=== PATIENT | male | born 1940 | race Caucasian/White ===

== ENCOUNTER 2024-02-27 09:25 | Day surgery (SDC) | payer MEDICARE, SELFPAY ==
[2024-02-27 10:05] LABS: Glucose - Point of Care 125 mg/dl (70-99)
--- NOTE | 2024-02-27 10:23 | ITS.CL.CARDI ---
Water Aerobics Instructor - Cardioversion
Cardioversion
Procedure Report:
Date of Procedure:
Procedure: Cardioversion
Indication: Symptomatic atrial fibrillation
Performing Physician: Nilton Ken MD
Technique: The patient was brought to the holding area. Signed informed consent was obtained. A time out was called and performed. The patient was anesthetized by the anesthesia service. Anticoagulation status was reviewed and appropriate. R2 pads
were placed anteriorly and posteriorly. A 200 J synchronized biphasic shock restored normal sinus rhythm without significant bradycardia. There were no complications.
Conclusion: Uncomplicated cardioversion from atrial fibrillation to sinus rhythm.
Recommendation: Routine post cardioversion care. Continue [facility] anticoagulation.
== END 2024-02-27 10:52 | disposition home or self-care (01) ==
LOC: CATH 09:25
PROVIDERS: ATTENDING PHYSICIAN Internal Medicine Cardiovascular Disease; FAMILY PHYSICIAN Internal Medicine; OTHER PHYSICIAN Internal Medicine Cardiovascular Disease
DX: I48.19 Other persistent atrial fibrillation (principal); I08.3 Combined rheumatic disorders of mitral, aortic and tricuspid valves; I50.22 Chronic systolic (congestive) heart failure; I27.20 Pulmonary hypertension, unspecified; E11.9 Type 2 diabetes mellitus without complications; Z79.01 Long term (current) use of anticoagulants; Z79.84 Long term (current) use of oral hypoglycemic drugs
CPT/HCPCS: 82962; 92960; 93005

== ENCOUNTER → 2025-01-28 12:57 | Outpatient (REF) | payer MEDICARE, SELFPAY | LOC: RAD 12:57 | PROVIDERS: ATTENDING PHYSICIAN Internal Medicine Cardiovascular Disease; FAMILY PHYSICIAN Internal Medicine | DX: M79.89 Other specified soft tissue disorders (principal); R09.89 Other specified symptoms and signs involving the circulatory and respiratory systems; I87.2 Venous insufficiency (chronic) (peripheral) | CPT/HCPCS: 93970 ==

== ENCOUNTER 2025-02-03 09:46 | Day surgery (SDC) | payer MEDICARE, SELFPAY ==
--- NOTE | 2025-02-03 12:05 | ITS.CL.CARDI ---
Brand Ambassador Promotional Model - Cardioversion
Cardioversion
Procedure Report:
Date of Procedure: 02/03/25
Procedure: Cardioversion
Indication: Symptomatic atrial fibrillation
Performing Physician: Nilton Ken MD
Technique: The patient was brought to the holding area. Signed informed consent was obtained. A time out was called and performed. The patient was anesthetized by the anesthesia service. Anticoagulation status was reviewed and appropriate. R2 pads
were placed anteriorly and posteriorly. A 200 J synchronized biphasic shock restored sinus rhythm with first degree AV block and brief second degree AV block
Conclusion: Uncomplicated cardioversion from atrial fibrillation to sinus rhythm with first degree AV block.
Recommendation: Routine post cardioversion care. Continue [facility] anticoagulation.
== END 2025-02-03 12:45 | disposition home or self-care (01) ==
LOC: CATH 09:46
PROVIDERS: ATTENDING PHYSICIAN Internal Medicine Cardiovascular Disease; FAMILY PHYSICIAN Internal Medicine; OTHER PHYSICIAN Internal Medicine Cardiovascular Disease
DX: I48.91 Unspecified atrial fibrillation (principal); I44.1 Atrioventricular block, second degree; Z79.01 Long term (current) use of anticoagulants
CPT/HCPCS: 92960; 93005

== ENCOUNTER → 2025-04-12 11:05 | Outpatient (REF) | payer MEDICARE, SELFPAY ==
[2025-04-12 11:38] LABS: Hematocrit 40.5 % (39.0-52.0); Hemoglobin 13.2 g/dL (13.0-18.0); Mean Corp Hgb Conc. 32.6 g/dL (33.0-37.0); Mean Corpuscular Volume 99.0 fL (80.0-94.0); Nucleated Red Blood Cells % 0 % (-); Platelet Count 230 10^3/uL (130-400); Red Cell Dist. Width 14.0 % (11.5-14.5)
[2025-04-12 11:46] LABS: INR 1.51; PT 18.5 Sec (11.4-14.6)
[2025-04-12 12:23] LABS: ALT (SGPT) 24 U/L (0-50); AST (SGOT) 25 U/L (17-59); Albumin 3.9 g/dl (3.5-5.0); Alkaline Phosphatase 67 U/L (38-126); Blood Urea Nitrogen 40 mg/dl (9-20); Calcium 10.0 mg/dl (8.4-10.2); Carbon Dioxide 32 mmol/L (22-30); Chloride 98 mmol/L (98-107); Glucose 225 mg/dl (70-99); Magnesium 2.4 mg/dl (1.6-2.3); Potassium 5.1 mmol/L (3.5-5.1); Sodium 136 mmol/L (135-145); Total Protein 6.6 g/dl (6.3-8.2); eGFR 59.26
== END ==
LOC: SDSPAT 11:05
PROVIDERS: ATTENDING PHYSICIAN Internal Medicine Cardiovascular Disease; FAMILY PHYSICIAN Internal Medicine
DX: I48.19 Other persistent atrial fibrillation (principal)
CPT/HCPCS: 36415; 80053; 83735; 85025; 85610; 86850; 86900; 86901; 87070

== ENCOUNTER 2025-04-19 08:01 | Inpatient (IN) | payer MEDICARE, SELFPAY ==
[2025-04-12 11:45] VITALS: BMI 31.1
[2025-04-19] VITALS (18 sets, daily range): BP systolic 91–127; BP diastolic 58–76; BMI 31.1
[2025-04-19] MEDS: NSS 500 IV (09:02)
[2025-04-19 09:11] LABS: Glucose - Point of Care 129 mg/dl (70-99)
[2025-04-19 11:21] LABS: ACT-LR - POC 289 Seconds (116-155)
[2025-04-19 12:20] LABS: ACT-LR - POC 231 Seconds (116-155)
[2025-04-19 12:42] LABS: ACT-LR - POC 385 Seconds (116-155)
--- NOTE | 2025-04-19 13:02 | ITS.CL.ABL ---
Vba Developer - Ablation
Ablation
Procedure Report:
ELECTROPHYSIOLOGY ABLATION STUDY
Procedures: Pulmonary vein isolation, left atrial posterior wall isolation, and watchman implantation
PVI and left atrial posterior wall isolation was performed by Ivan Amador
Watchman device implant performed by Dr. Mccabe
Transseptal finishing powder press operator for the Watchman implant [place]
DATE:: April 19, 2025���������������������������REFERRING: Dr. Ivan Amador
INDICATION: Paroxysmal supraventricular tachycardia in the form of atrial fibrillation.��Prior pulmonary vein isolation in 2019 and prior history of tachycardia induced cardiomyopathy
HISTORY: See H and P.��As above also has rectal bleeding, elevated [id number] score
ANTIARRHYTHMIC DRUG: Prior history of amiodarone use
PRE-PROCEDURE MICHAEL: No intracardiac thrombus
PRESENTING RHYTHM: Sinus rhythm
'TIME-OUT':��called and confirmed.
SEDATION/ANESTHESIA:��provided via the anesthesia department using general anesthesia (LMA).
INTRAVENOUS/ARTERIAL ACCESS:
Right femoral venous - 8Fr
Left femoral venous - 8 Fr, 6 Fr
Left femoral arterial - 5 Fr
[id number] suture to the bilateral femoral venous access sites.
Ultrasound guidance for bilateral femoral vein access was utilized by me to obtain access with demonstration of normal anatomy
CHADS-VASC Score:
HAS-Bled Score
PROCEDURE:
1.��A decapolar CS catheter was placed within the CS for mapping and pacing.��This was also used as the reference catheter for the 3-D map.
2. The intracardiac ultrasound catheter was positioned in the RA to identify the FO for targeting of transseptal puncture, assist��in identification of the pulmonary vein ostia, monitoring pre and post ablation pulmonary vein flow velocities,
monitoring for 'bubble' formation during RF application as a sign of thermal injury,��and to monitor for pericardial effusion during mapping and ablation procedure.���Left atrial size, LV ejection fraction, and pulmonary vein flows were monitored
pre and post ablation procedure. The other valves were inspected and found to be free of significant regurgitation or stenosis.
3.��Half of the calculated heparin bolus was administered prior to the first transeptal puncture.��Transseptal puncture was performed to diagnose RA and LA pressure so that safety of LA mapping and ablation could be further assessed, and to access
the left atrium and pulmonary veins for mapping and ablation.��This entailed advancing an 16.8 Spanish sheath, RF wire with dilator into the superior vena cava and withdrawing both (monitoring intracardiac ultrasound, fluoroscopy and tip pressure)
with the tip oriented toward the atrial septum.��The fossa ovalis was engaged (indicated by sudden displacement of the sheath tip as well as tenting of the fossa seen on intracardiac ultrasound).��Left atrial access required a pass with the
Brockenbrough needle extended.��Left atrial catheter position was confirmed by pressure monitoring (RA mean pressure 8 mm Hg and LA mean presure 18 mm Hg), LA saturation (99%),��as well as fluoroscopy.��The sheath was advanced over the dilator and
positioned in the left atrium.��The remainder of the calculated heparin bolus was administered and heparin was
infused to maintain ACT at 300 -350 seconds throughout the case. The patient's neck scoliosis made right atrial access and transseptal puncture extremely difficult.
4.��RA pacing was performed via the proximal decapolar poles and LA pacing was performed via the distal decapolr poles.
5. A quadrapolar catheter was first positioned at the His position for His Bundle recording which was tagged via the 3-D Navex sytem, and then passed to the RVA for RV pacing and recording.
6. The ablation catheter was positioned through one of the transeptal sheaths and a 20 pole ring mapping catheter was positioned through the second seath into the LA and then the ostia of the LIPV, LSPV, RSPV and the RIPV.��
7.��Next, a 3-D map was created using Navex.���A 3-D reconstructed CT image was compared to the 3-D Navex map to assist in anatomic interpretation, mapping and ablation.��The CT image and the NavX image were fused.
8. There is focal reconnection at the left pulmonary vein mac along the posterior wall. In olive pose the left mac was addressed in the posterior aspect and then in flower pose the roof posterior wall and floor of the left atrium were
addressed. This led to entrance next block in all 4 pulmonary veins as well as the roof posterior wall and floor of the pulmonary veins. 32 lesions were given in total and the various poses. Once the lesions were delivered and entrance next block
was confirmed with the grid catheter we then proceeded to the watchman implantation portion of the procedure.
9. The [address] sheath was exchanged over a pigtail wire for the double curve watchman sheath. Please see separate report from Dr. Mccabe for full details of watchman implant. I performed the groin access and transseptal puncture for the
watchman implantation. Over pigtail the left atrial appendage was accessed demonstrating a 25 mm x 20 mm ostium with multiple small lobes. MICHAEL guidance was performed by Dr. Alvarez. Implantation of the device was performed by Dr. Mccabe. We
initially utilized a 27 mm device but left one of the small lobes of the appendage uncovered. We were able to have good coaxial opposition to the distal appendage with the standard sheath. We then delivered a 31 mm device as distal as possible
with some stretch in the distal appendage which had 22 to 24% compression, ostial location, past the tug test, and had a 2 mm leak. Our concern in delivering a larger device i.e. 35 mm device was over compression and lack of working depth in the
appendage. As such after group discussion we elected to leave the device with a small leak which was focal and less than 5 mm. The device was deployed. We will repeat the MICHAEL on current dose of oral anticoagulation in 3 months.
TOTAL FLOURO TIME: 22 minutes 23 mGy
TOTAL RF DURATION: 0 minutes
REVERSAL OF HEPARIN: 40 mg of protamine, slow IV administration
COMPLICATIONS:
None
Intracardiac US shows no pericardial effusion post ablation.
SUMMARY:��
Complex left atrial mapping and ablation.
Isolation of the left superior pulmonary vein at the mac, left atrial posterior wall isolation. Concomitant watchman implant with a 31 mm device with a 2 mm peridevice leak but otherwise meeting all Pass criteria. Dr. Mccabe delivered the
Watchman device and I performed a groin access and transseptal puncture for that portion of the procedure.
RECOMMENDATIONS:
1. Admit to monitored bed.
2. Resume anticoagulation
3.� Check CBC and BMP in a.m. and continue outpatient medications
4.��Out of bed in 4 hours
Copy to: Dr. Ivan Amador, Dr. Dusty Mccabe
[2025-04-19 13:12] LABS: ACT-LR - POC > 397 Seconds (116-155)
[2025-04-19 14:19] LABS: Glucose - Point of Care 135 mg/dl (70-99)
--- NOTE | 2025-04-19 14:30 | PTCARENOTE ---
Rec'd report from Delaney in the EP lab; Pt rec'd AAOX3 w/no c/o CP or SOB. Pt's VSS w/HR in the 80's & 112/66 on arrival to the floor. Pt is SR w/1st deg AV block on telemetry monitoring. Pt w/bilat groin access sites w/dressings w/figure of 8
sutures intact. No signs of bleeding or hematomas. Pt & spouse advised of activity restrictions until 30 mins after sutures are clipped & the groin sites redressed. Pt verbalized his understanding. Pt oriented to room & assisted spouse w/calling for
a meal for pt. Pt's fingerstick glucose done in EP lab, resulted at 135. Pt w/call ervin within reach & plan of care ongoing.
--- NOTE | 2025-04-19 16:42 | CM ---
Chart reviewed. Patient is independent of ADLS, lives with his in a 2 STH,, 0 MICHELE, ambulates with a SPC. Plan is for the patient to return home. CM to follow
[2025-04-19] MEDS: LASIX 20 MG IV (16:48)
[2025-04-19] MEDS: FLUSH (NSS) 2 FLUSH IV (16:48)
--- NOTE | 2025-04-19 17:50 | ITS.CL.PN ---
Soft Water Mechanic - Procedure Note
Procedure
Procedure Note:
WATCHMAN LEFT ATRIAL APPENDAGE OCCLUSION REPORT
Date of Procedure: 04/19/2025
Referring: Dr. Bobbi Salvador MD
Indication: atrial fibrillation with high bleeding risk and high stroke risk
Operators: Lowell Rocha MD, PhD (interventional cardiology); Dr. Ivan Amador MD (electrophysiology); Dr. Clyde Alvarez MD (cardiac imaging)
Anesthesia: general anesthesia provided by the anesthesia staff
PROCEDURE: left atrial appendage occlusion with a 31 mm Watchman FLX
HEMODYNAMIC DATA
LA 18 mmHg
PROCEDURE NARRATIVE:
The patient was intubated and sedated by anesthesiology and then prepped and draped in standard sterile fashion. PVI was performed by Dr. Ivan Amador. Please see separate PVI report. We then proceeded immediately with Watchman implantation through
the existing transseptal puncture. The [address] sheath was exchanged over a pigtail wire in the left atrium for a Watchman double curve sheath. A MICHAEL probe was placed by cardiology and imaging performed demonstrating no left atrial appendage
thrombus and no pericardial effusion.
A 5F pigtail catheter was advanced through the Watchman sheath and placed in the left atrial appendage, and an appendage gram was performed demonstrating anatomy suitable for a 31 mm Watchman FLX device (25x20 mm ostium). The device was prepped on
the back table, the pigtail catheter removed, and the device delivered via the sheath to the left atrial appendage by Dr. Lowell Rocha. Unfortunately, despite multiple attempts at delivery there appeared to be an unacceptably large mitral
shoulder and the decision was made to try a smaller 27 mm device. This device resulted in deeper delivery, however, this device appeared too small for the ostium as it left a small posterior side lobe uncovered. We decided to re-attempt the 31 mm
device with deeper initial deployment as well as posterior guide torque just before deployment in the hopes this would 'tuck' the mitral shoulder while still providing coverage of the side lobe. Using this approach, the device was successfully
deployed and there was noted to be only a very small 1-2 m focal communication between the side lobe and the left atrium. We discussed attempting a larger 35 mm device, but there was concern that this would be too large and leave an unacceptable
mitral shoulder or risk perforation. The aforementioned leak was again interrogated in multiple views and demonstrated to be small and certainly well below the recommended cutoff of 5 mm. MICHAEL imaging was performed to assess other PASS criteria. The
device demonstrated excellent positioning, anchor stability on tug test, appropriate sizing with 22-24% compression. Given PASS criteria were met, the device was then released.
The delivery system retracted back into the sheath and removed from the body. The sheath was retracted into the right atrium with MICHAEL demonstrating no significant R-L shunt or pericardial effusion. The ICE catheter was removed from the body. The
sheaths were removed and the venotomy closed with [id number] knot. Protamine 40 mg was given. The patient was extubated and tolerated the procedure well.
CONCLUSIONS
1. successful deployment of a 31 mm Watchman FLX device under fluoroscopic and MICHAEL guidance with 2 mm peridevice leak noted prior to deployment
RECOMMENDATIONS:
1. resume anticoagulation with Eliquis 5 mg BID
2. repeat MICHAEL in 3 months
Copy to: Ivan Amador MD (mortgage loan interviewer); Dr. Bobbi Salvador MD (PCP)
Signed: Lowell Rocha MD, PhD
[2025-04-19] MEDS: COREG 6.25 MG PO (19:41)
[2025-04-19] MEDS: ELIQUIS 5 MG PO (19:41)
[2025-04-19] MEDS: LIPITOR 40 MG PO (21:22)
[2025-04-19] MEDS: ALTACE 5 MG PO (21:22)
[2025-04-19] MEDS: NSS IV (21:53)
--- NOTE | 2025-04-19 21:54 | PTCARENOTE ---
Patient received at change of shift out of bed to the chair. Bilateral groin sites with gauze and tegaderm C/D/I, pedal pulses present with doppler. Patient denies pain at this time. Sinus rhythm/sinus tach with first degree AV block on telemetry.
Oxygen saturation 93-94% on room air. Patient voiding in the bathroom, x1 assist with cane. Plan of care discussed. Call ervin within reach. Care ongoing.
[2025-04-19 22:35] LABS: Glucose - Point of Care 228 mg/dl (70-99)
[2025-04-20 03:14] VITALS: BP 92/63
[2025-04-20 03:25] VITALS: BMI 30.9
[2025-04-20 03:32] LABS: Hematocrit 35.7 % (39.0-52.0); Hemoglobin 11.7 g/dL (13.0-18.0); Mean Corp Hgb Conc. 32.8 g/dL (33.0-37.0); Mean Corpuscular Volume 98.1 fL (80.0-94.0); Platelet Count 216 10^3/uL (130-400); Red Cell Dist. Width 13.8 % (11.5-14.5)
[2025-04-20 03:57] LABS: Blood Urea Nitrogen 50 mg/dl (9-20); Calcium 9.1 mg/dl (8.4-10.2); Carbon Dioxide 33 mmol/L (22-30); Chloride 101 mmol/L (98-107); Estimated Creatinine Clearance 32 ml/min; Glucose 151 mg/dl (70-99); Magnesium 2.4 mg/dl (1.6-2.3); Potassium 5.4 mmol/L (3.5-5.1); Sodium 137 mmol/L (135-145); eGFR 45.34
[2025-04-20 07:07] VITALS: BP 88/59; BP 92/54
[2025-04-20 07:18] VITALS: BP 92/54
[2025-04-20 07:50] LABS: Glucose - Point of Care 102 mg/dl (70-99)
--- NOTE | 2025-04-20 08:00 | PTCARENOTE ---
Assumed care of pt from prev nsg shift; Pt AAOx3 w/no c/o CP or SOB. Pt is SR at rest & ST in the 110's-120's w/activity on telemetry monitoring. Pt's bilat groin sites w/dressings intact w/no signs or symptoms of active bleeding or hematomas. Pt's
VSS w/HR in the 60's & BP 92/54 this AM. Pt w/call ervin within reach & no addtl needs at this time.
[2025-04-20] MEDS: NSS 500 IV (08:22)
[2025-04-20] MEDS: ELIQUIS 5 MG PO (08:23)
[2025-04-20] MEDS: COREG 6.25 MG PO (08:23)
[2025-04-20] MEDS: ALDACTONE 12.5 MG PO (08:23)
[2025-04-20] MEDS: FLUSH (NSS) 1 FLUSH IV (08:24)
[2025-04-20] MEDS: ALTACE 5 MG PO (08:24)
--- NOTE | 2025-04-20 08:31 | W.PN.CARDCBS ---
Addendum entered and electronically signed by Ivan Amador MD 04/20/25 09:17:
patient seen and examined
agree with SUGAR CHIPPER MACHINE OPERATOR note and assessment
agree with SUGAR CHIPPER MACHINE OPERATOR plan
exam:
bilat groin cdi
cor regular
tele sr
jvp 6
non focal neurologically
cervical stenosis noted
PCP: Bobbi Salvador MD
CDY: Ivan Amador MD
Impression:
Symptomatic paroxysmal Atrial fibrillation
prior PVI 2019
post redo PVI and Watchman device implant 31mm 04/19/25 (2-3mm leak noted)
CARLEEN
Hyperkalemia and Hypermagnesemia
CAD/CABG 2002
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
Ambulatory dysfunction with frequent falls
NIDDM
Hyperlipidemia
h/o bleeding hemorrhoids
Plan:
Cr mild bump 1.2-> 1.5, will give IV bolus 250cc, hold lasix this am
recheck BMP on Friday
OAC Eliquis
HF continue ramipril, spironolactone, carvedilol, t/c adding SGLT2i as outpt
Hold Metformin post procedure, resume on
I.S. C&DB
Activity restrictions reviewed
f/u MICHAEL in 3 mo as scheduled
f/u Dr. Amador in 2 mo
home today
Discussed the 2-3mm leak on the device with family. Should close. If not can consider extending eliquis at 2.5mg bid at time of 3 month MICHAEL and repeat at 12 months. If leak closed then can stop OAC.
Original Note:
Today's Communication / Plan
-
post PVI and Watchman implant
mild CARLEEN, IV bolus and BMP Friday
OAC Eliquis
f/u MICHAEL in 3 mo
Impression / Plan
-
PCP: Bobbi Salvador MD
CDY: Ivan Amador MD
Impression:
Symptomatic paroxysmal Atrial fibrillation
prior PVI 2019
post redo PVI and Watchman device implant 31mm 04/19/25
CARLEEN
Hyperkalemia and Hypermagnesemia
CAD/CABG 2002
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
Ambulatory dysfunction with frequent falls
NIDDM
Hyperlipidemia
h/o bleeding hemorrhoids
Plan:
post ablation and Watchman
groins stable
tele SR with occasional NSVT
Cr mild bump 1.2-> 1.5, will give IV bolus 250cc, hold lasix this am
recheck BMP on Friday
OAC Eliquis
HF continue ramipril, spironolactone, carvedilol, t/c adding SGLT2i as outpt
Hold Metformin post procedure, resume on
I.S. C&DB
Activity restrictions reviewed
f/u MICHAEL in 3 mo as scheduled
f/u Dr. Amador in 2 mo
home today
SUMMARY:��
Complex left atrial mapping and ablation.
Isolation of the left superior pulmonary vein at the mac, left atrial posterior wall isolation. Concomitant watchman implant with a 31 mm device with a 2 mm peridevice leak but otherwise meeting all Pass criteria. Dr. Mccabe delivered the
Watchman device and I performed a groin access and transseptal puncture for that portion of the procedure.
Progress Note - Consumer Marketing Specialist
Subjective
Date of Service: April 20, 2025
denies cp, sob
Objective
Labs:
04/20/25 03:20
04/20/25 03:20
Labs
Hgb 11.7 g/dL (13.0-18.0) L 04/20/25 03:20
Hct 35.7 % (39.0-52.0) L 04/20/25 03:20
Plt Count 216 10^3/uL (130-400) 04/20/25 03:20
Sodium 137 mmol/L (135-145) 04/20/25 03:20
Potassium 5.4 mmol/L (3.5-5.1) H 04/20/25 03:20
BUN 50 mg/dl (9-20) H 04/20/25 03:20
Creatinine 1.5 mg/dL (0.7-1.3) H 04/20/25 03:20
Glucose 151 mg/dl (70-99) H 04/20/25 03:20
Vital Signs and I&O:
Vital Signs
Temp Pulse Resp BP Pulse Ox
97.8 F 71 20 92/54 96
04/20/25 07:07 04/20/25 08:00 04/20/25 07:07 04/20/25 07:18 04/20/25 07:07
Vital Signs
Temp Pulse Resp BP Pulse Ox
97.8 F 71 20 92/54 96
04/20/25 07:07 04/20/25 08:00 04/20/25 07:07 04/20/25 07:18 04/20/25 07:07
Intake & Output
04/18/25 04/19/25 04/20/25 04/21/25
06:59 06:59 06:59 06:59
Intake Total 1660 / 1660
Output Total 150 / 150
Balance 1510 / 1510
Physical Exam
Physical Exam
NAD< AOX3
S1, S2, RRR
fine crackles LLL, non labored, no wheeze
SNTND bsx4
b/l groins c/d/i, no HT, soft
[2025-04-20 08:40] LABS: Glycohemoglobin (HgbA1c) 6.9 % (4.0-5.6)
[2025-04-20 11:04] VITALS: BP 85/57
[2025-04-20 11:05] VITALS: BP 88/56
--- NOTE | 2025-04-20 11:24 | W.DS.TRANS ---
DC Summary - Glass Decorator
-
Discharge Instructions:
Sleep Apnea Risk Low
Discharge Diagnosis/Procedures Atrial fibrillation post ablation and Watchman
implant
Diet Low Cholesterol,Diabetic, Carb Controlled,2 Gram
Sodium
Driving Restrictions No driving for 24 hours
Blood Work Check BMP on Friday
Others Tests 3 month Follow-up MICHAEL: 07/28/2025. You will
receive a call from the hospital the night
before with instructions
Specialty Instructions Weigh Daily
Instructions:
Stand-Alone Forms: DC Instructions- Cath/EP Lab
Changes to Home Medications: No
Discharge Medications:
DC Medications w/original date entered in [facility]
apixaban 5 mg tablet (Eliquis) 5 mg PO BID Blood clot prevention/tx 11/30/19
atorvastatin 40 mg tablet 40 mg PO HS High cholesterol 11/30/19
coenzyme Q10 100 mg capsule (Co Q-10) 200 mg PO DAILY@1400 Supplement 11/30/19
multivitamin with folic acid 400 mcg tablet (Tab-A-Veena) 1 tab PO DAILY@1400 Supplement 11/30/19
ramipril 5 mg capsule 5 mg PO BID Blood pressure 11/30/19
carvedilol 6.25 mg tablet 6.25 mg PO BID Blood pressure 08/22/20
melatonin 5 mg tablet 5 mg PO HS sleep 08/22/20
polyethylene glycol 3350 17 gram oral powder packet 17 grams PO DAILY stool softner 08/22/20
fexofenadine 180 mg tablet 180 mg PO DAILY Allergies 03/12/23
furosemide 40 mg tablet 60 mg PO DAILY Fluid Retention/Swelling 03/12/23
metformin 500 mg tablet,extended release 24 hr 500 mg PO DAILY Diabetes 03/12/23
Held on 04/20/25. Instructions: Resume on 04/21/25.
spironolactone 25 mg tablet 12.5 mg PO DAILY Fluid Retention/Swelling 03/12/23
ferrous sulfate 325 mg (65 mg iron) tablet 325 mg PO Q48H 04/19/25
Home Medication Changes
Pending Results: No
[2025-04-20 11:41] VITALS: BP 95/57
[2025-04-20] MEDS: NSS IV (11:54)
[2025-04-20 12:08] LABS: Glucose - Point of Care 112 mg/dl (70-99)
--- NOTE | 2025-04-20 13:20 | PTCARENOTE ---
Pt's IV line & telemetry removed; D/C instructions discussed w/pt & pt's spouse. Pt left via WC w/spouse driving him home.
== END 2025-04-20 13:20 | disposition home or self-care (01) | DRG 317 ==
LOC: IVU 08:01
PROVIDERS: Internal Medicine Cardiovascular Disease; Nurse Practitioner Adult Health; Student in an Organized Health Care Education/Training Program; ADMITTING PHYSICIAN Internal Medicine Cardiovascular Disease; FAMILY PHYSICIAN Internal Medicine
PROC: 02K83ZZ Map Conduction Mechanism, Percutaneous Approach (ICD-10-PCS; 2025-04-19)
PROC: 02583ZZ Destruction of Conduction Mechanism, Percutaneous Approach (ICD-10-PCS; 2025-04-19)
PROC: B24BZZ4 Ultrasonography of Heart with Aorta, Transesophageal (ICD-10-PCS; 2025-04-19)
PROC: 4A023FZ Measurement of Cardiac Rhythm, Percutaneous Approach (ICD-10-PCS; 2025-04-19)
PROC: 4A0234Z Measurement of Cardiac Electrical Activity, Percutaneous Approach (ICD-10-PCS; 2025-04-19)
PROC: 02L73DK Occlusion of Left Atrial Appendage with Intraluminal Device, Percutaneous Approach (ICD-10-PCS; 2025-04-19)
DX: I48.0 Paroxysmal atrial fibrillation (principal); Z00.6 Encounter for examination for normal comparison and control in clinical research program; I50.22 Chronic systolic (congestive) heart failure; N17.9 Acute kidney failure, unspecified; E87.5 Hyperkalemia; E83.41 Hypermagnesemia; I25.10 Atherosclerotic heart disease of native coronary artery without angina pectoris; R29.6 Repeated falls; E11.9 Type 2 diabetes mellitus without complications; E78.5 Hyperlipidemia, unspecified; I34.0 Nonrheumatic mitral (valve) insufficiency; I47.19 Other supraventricular tachycardia; I42.8 Other cardiomyopathies; M41.9 Scoliosis, unspecified; Z95.1 Presence of aortocoronary bypass graft; Z87.19 Personal history of other diseases of the digestive system; Z79.84 Long term (current) use of oral hypoglycemic drugs
CPT/HCPCS: 33340; 80048; 82962; 83036; 83735; 85027; 85347; 93005; 93355; 93656; C1730; C1732; C1733; C1759; C1766; C1769; C1892; C1894

== ENCOUNTER 2025-05-25 21:05 | Inpatient (IN) | payer MEDICARE, SELFPAY ==
[2025-05-25 15:13] VITALS: BMI 27.7
[2025-05-25 15:27] VITALS: BP 105/47
[2025-05-25 15:53] LABS: Hematocrit 35.2 % (39.0-52.0); Hemoglobin 11.4 g/dL (13.0-18.0); Mean Corp Hgb Conc. 32.4 g/dL (33.0-37.0); Mean Corpuscular Volume 100.3 fL (80.0-94.0); Nucleated Red Blood Cells % 0 % (-); Platelet Count 255 10^3/uL (130-400); Red Cell Dist. Width 14.1 % (11.5-14.5)
[2025-05-25 16:02] LABS: ALT (SGPT) 28 U/L (0-50); AST (SGOT) 24 U/L (17-59); Albumin 3.8 g/dl (3.5-5.0); Alkaline Phosphatase 67 U/L (38-126); Blood Urea Nitrogen 45 mg/dl (9-20); Calcium 9.5 mg/dl (8.4-10.2); Carbon Dioxide 25 mmol/L (22-30); Chloride 97 mmol/L (98-107); Glucose 135 mg/dl (70-99); Potassium 5.2 mmol/L (3.5-5.1); Sodium 128 mmol/L (135-145); Total Protein 6.2 g/dl (6.3-8.2); eGFR 45.34
[2025-05-25 16:14] LABS: Troponin I 0.013 ng/ml
[2025-05-25 18:04] VITALS: BP 107/60
--- NOTE | 2025-05-25 18:14 | ED.GENMED ---
History of Present Illness
General
Chief Complaint: Breathing Problem
Source: patient and family
Exam Limitations: none
Time Seen by Provider: 05/25/25 17:51
History of Present Illness
History of Present Illness:
84yoM with a history of coronary artery disease s/p CABG, CHF, atrial fibrillation with Watchman placed last month, hypertension, and type 2 diabetes presenting with his and daughter for evaluation of shortness of breath. Patient recently
started to have vision loss from his right eye about a week ago. He has been following with [facility] and was told that he had blood on the eye which resulted in glaucoma. He was started on eye drops as well as acetazolamide. His coroner transport technician
took him off of his Lasix and spironolactone due to this. He has been experiencing increasing shortness of breath, leg swelling, and weight gain over the past few days. states he is unable to walk more than 2 steps before feeling
significantly short of breath. His coroner transport technician told him to resume his Lasix but take it every other day. He took 1 dose yesterday. Family also states he seemed confused earlier today but this comes and goes and he does not seem confused at this
time. His coroner transport technician is Dr. Amador.
Past History
Past History
ED Past Medical History: Arrthythmia (afib), CHF, HTN, Hypercholesterolemia, NIDDM, Other (BPH) and Other (neuropathy)
Social History
Tobacco: Non-smoker
Alcohol: None
Drug: None
Personal:
Living: with family
Employment: Retired
Family History
Family History: Other (Noncontributory)
Phy Exam
General Physical Exam
General Presentation: no apparent distress
General Skin: warm and dry
General Habitus: elderly
General Mental: alert
ENT Exam
ENT Exam: normocephalic
Cardiovascular Exam
Cardiovascular Exam: irregularly irregular and other (2+ pitting edema in bilateral lower extremities)
Pulmonary Exam
Pulmonary Exam: no respiratory distress, no rhonchi, no wheezing and other (Bibasilar rales)
Neurological Exam
Neurological Exam: alert
[place] Coma Scale
Eye Opening: Spontaneous
Verbal Response: Oriented
Motor Response: Obeys Commands
GCS Total Score: 15
Skin Exam
Skin Exam: normal color and warm/dry
Psychiatric Exam
Psychiatric Exam: normal mood/affect
Scores
Heart Failure Risk
Heart Failure Risk Score: Not Applicable
Course
Orders/Labs/Results
Orders:
Orders
05/25/25 15:33
Electrocardiogram (*1) Urgent
Reason for Study: Shortness of Breath
EKG- Treatment ONCE
05/25/25 15:36
Complete Blood Count/With Diff Urgent
Comprehensive Metabolic Panel Urgent
NT-proBNP Urgent
Troponin I Urgent
05/25/25 17:53
CR Chest - 2 Views Urgent
Comment:
Reason For Exam: SOB
05/25/25 18:16
Furosemide [Lasix] 40 mg IV NOW STA
05/25/25 18:17
Cardiac Monitoring- Treatment ONCE
05/25/25 19:44
Admit/Transfer Patient As Directed
Co-Sign Provider:
Level of Care: Inpatient admission
Assign to:: Telemetry
Physician / Group: dayna
Diagnosis: acute chf exacerbation
Reason for Telemetry: Arrhythmia
Date to Stop Telemetry: 05/28/25
Time to Stop Telemetry: 11:00
Reason for Hospitalization: acute chf exacerbation
Expected length of stay greater than two midnights?: Yes
ELOS- Estimated Length of Stay in days: 2
I certify the patient meets the requirements for IP care: Yes
05/25/25 19:45
PRN Pain Medication Management As Directed
May give lesser potent ordered pain med per pt: Yes
preference::
Protocol:: Medication orders for pain may be administered in a
manner that supports deferring to patient preference
when the pt is:
- Requesting an ordered lesser potent pain medication.
Least to most potent pain medications are defined
as: acetaminophen < NSAID < tramadol < opioids
(morphine, oxycodone, hydromorphone).
- Requesting a lesser dose of the same medication IF
ORDERED.
- Requesting a less intrusive route of administration
if both routes are prescribed by the provider (PO <
IV).
05/25/25 19:46
Code Status As Directed
Resuscitation Status: Full Code
05/28/25 11:00
DC Protocol for Telemetry ONCE
Abnormal Lab Results
05/25/25
15:36
RBC 3.51 L 10^6/uL
(4.70-6.10)
Hgb 11.4 L g/dL
(13.0-18.0)
Hct 35.2 L %
(39.0-52.0)
MCV 100.3 H fL
(80.0-94.0)
MCH 32.5 H pg
(27.0-31.0)
MCHC 32.4 L g/dL
(33.0-37.0)
Abs Immat Gran (auto) 0.1 H 10^3/uL
(0-0.05)
Absolute Neuts (auto) 7.3 H 10^3/uL
(1.4-6.5)
Absolute Lymphs (auto) 0.6 L 10^3/uL
(1.2-3.4)
Absolute Monos (auto) 1.3 H 10^3/uL
(0.1-0.6)
Neutrophils % 78.9 H %
(42.2-75.2)
Lymphocytes % 6.8 L %
(20.5-51.1)
Monocytes % 13.5 H %
(1.7-9.3)
Sodium 128 L mmol/L
(135-145)
Potassium 5.2 H mmol/L
(3.5-5.1)
Chloride 97 L mmol/L
(98-107)
BUN 45 H mg/dl
(9-20)
Creatinine 1.5 H mg/dL
(0.7-1.3)
Glucose 135 H mg/dl
(70-99)
Total Protein 6.2 L g/dl
(6.3-8.2)
05/25/25 15:36
05/25/25 15:36
Vital Signs
Initial and Last Documented VS:
Initial Vital Signs
Temp Pulse Resp BP Pulse Ox
97.5 F 65 20 105/47 98
05/25/25 15:27 05/25/25 15:27 05/25/25 15:27 05/25/25 15:27 05/25/25 15:27
Last Documented Vital Signs
Temp Pulse Resp BP Pulse Ox
97.5 F 75 17 110/63 98
05/25/25 15:27 05/25/25 18:34 05/25/25 18:34 05/25/25 18:33 05/25/25 18:16
MDM/Problems Addressed
Differential Diagnosis Includes:
84yoM here with SOB, leg swelling, and weight gain. Lasix recently discontinued due to being started on acetazolamide for glaucoma. VSS. He is volume overloaded on exam with peripheral edema and bibasilar rales. Differential diagnosis includes but
is not limited to: CHF exacerbation, cardiorenal syndrome, CARLEEN, anasarca
Workup initiated in triage. BNP is >11,000. Creatinine 1.5 which is unchanged from lab work from 04/20. Sodium is 128 which is likely related to hypervolemia. 40 mg IV Lasix ordered. Patient will require admission for CHF exacerbation and IV
diuresis.
*Pulse Oximetry
SaO2: 98
Oxygen Mode of Delivery: Room air
Patient hypoxic: no (98%)
*EKG
Interpreted by ED Provider?: Yes
EKG Intrepretation Date: 05/25/25
Heart Rate: 69
Rate: normal
Rhythm: sinus
Starbuck: left axis deviation
Interval: normal interval
QRS Pattern: normal QRS
Ischemia: no ischemia
*Critical Care Note
Total Time (30-74mins, 75-104mins- exclusive of procedures): Not Applicable
ED Attending Note
-
Portions of this chart may have been created with voice recognition software.� Occasional wrong word or��sound alike� substitutions may have occurred due to the inherent limitations of voice recognition software.
Discharge Plan
Departure
Patient Disposition: Admit
Date of Disposition: 05/25/25
Time of Disposition: 18:18
Presentation/result/management discussed w/ accepting MD/DO: Hospitalist
Discharge Problem:
Acute exacerbation of CHF (congestive heart failure)
Prescriptions:
No Action
atorvastatin 40 MG tablet
40 mg PO HS
ramipril 5 MG capsule
5 mg PO BID
Eliquis 5 MG tablet
2.5 mg PO BID
coenzyme Q10 [Co Q-10] 100 MG capsule
200 mg PO DAILY@1200
multivitamin with folic acid [Tab-A-Veena] 1 TABLET tablet
1 tab PO DAILY@1200
melatonin 5 MG tablet
5 mg PO HS
carvedilol 6.25 MG tablet
6.25 mg PO BID
furosemide 40 mg tablet
40 mg PO Q48H
ferrous sulfate 325 mg (65 mg iron) Tablet
325 mg PO Q48H
acetazolamide 500 mg Capsule, Extended Release
500 mg PO BID
cyclopentolate 1 % Drops
1 drp RIGHT EYE BID
prednisolone acetate 1 % Drops,Suspension
1 drp RIGHT EYE QID
brimonidine 0.2 % Drops
1 drp RIGHT EYE Q8H
metformin 500 mg Tablet Extended Release 24 Hr
500 mg PO DAILY
loratadine [Claritin] 10 mg Tablet
10 mg PO DAILY@1200
dorzolamide-timolol (PF) [Cosopt (PF)] 2-0.5 % Dropperette
1 drp RIGHT EYE BID
Rocklatan 0.02-0.005 % Drops
1 drp RIGHT EYE HS
Interventions
Interventions:
*Risk Screen - Suicide Last Done: 05/25/25 15:27
*General Assessment Last Done: 05/25/25 18:43
*Neglect/Abuse Screening Last Done: 05/25/25 18:43
*ED- Fall Risk Assessment Last Done: 05/25/25 18:43
*ED COVID-19 Vaccine History Last Done: 05/25/25 18:43
ED- Cardiac Assessment Last Done: 05/25/25 18:26
ED- Pulmonary Assessment Last Done: 05/25/25 18:26
Discharge Date and Time
Print Language: [place]
[2025-05-25] MEDS: LASIX 40 MG IV (18:32)
[2025-05-25 18:33] VITALS: BP 110/63
--- NOTE | 2025-05-25 19:49 | HPS.HSE ---
Family Physician
-
Family Physician: Bobbi Salvador MD
Chief Complaint
-
shortness of breath
History of Present Illness
84-year-old male past medical history of CAD status post CABG, CHF, atrial fibrillation with watchman placed last month, hypertension, type 2 diabetes presenting with shortness of breath over the past week. 10 days ago he had acute vision loss in
his right eye. He saw [facility] and was diagnosed with spontaneous retinal hemorrhage secondary to Eliquis and subsequent glaucoma. Eliquis dose was decreased to 2.5 mg twice daily. He was started on multiple eyedrops without recovery of vision.
[facility] is considering potential surgery for his right eye in the near future. [facility] started him on acetazolamide and therefore Lasix and spironolactone were discontinued by his television production clerk Dr. Amador. He has gained 5 pounds with increased
lower extremity edema.
He has been intermittently confused. No confusion currently. No cough or fever.
He denies smoking or alcohol use.
Medical History
Past Medical History
Past Medical History: Reports Other (CAD status post CABG, CHF, atrial fibrillation with watchman placed last month, hypertension, type 2 diabetes)
Past Surgical History: Reports None
Social History
Tobacco: Non-smoker
Alcohol: None
Drug: None
Family History
Family History: Not pertinent
Allergies / Home Medications
Allergies reflects when Allergies were last updated in [facility].
Home Medications with original date entered in [facility]
Allergy/Medication List:
Allergies
Allergy/AdvReac Type Severity Reaction Status Date / Time
No Known Allergies Allergy Verified 04/19/25 08:24
Home Medications
apixaban 5 mg tablet (Eliquis) 2.5 mg PO BID Blood clot prevention/tx 11/30/19
atorvastatin 40 mg tablet 40 mg PO HS High cholesterol 11/30/19
coenzyme Q10 100 mg capsule (Co Q-10) 200 mg PO DAILY@1200 Supplement 11/30/19
multivitamin with folic acid 400 mcg tablet (Tab-A-Veena) 1 tab PO DAILY@1200 Supplement 11/30/19
ramipril 5 mg capsule 5 mg PO BID Blood pressure 11/30/19
carvedilol 6.25 mg tablet 6.25 mg PO BID Blood pressure 08/22/20
melatonin 5 mg tablet 5 mg PO HS sleep 08/22/20
furosemide 40 mg tablet 40 mg PO Q48H Fluid Retention/Swelling 03/12/23
ferrous sulfate 325 mg (65 mg iron) tablet 325 mg PO Q48H 04/19/25
acetazolamide 500 mg capsule,extended release 500 mg PO BID 05/25/25
brimonidine 0.2 % eye drops 1 drp RIGHT EYE Q8H 05/25/25
cyclopentolate 1 % eye drops 1 drp RIGHT EYE BID 05/25/25
dorzolamide-timolol (PF) 2 %-0.5 % eye drops in a dropperette (Cosopt (PF)) 1 drp RIGHT EYE BID 05/25/25
loratadine 10 mg tablet (Claritin) 10 mg PO DAILY@1200 05/25/25
metformin 500 mg tablet,extended release 24 hr 500 mg PO DAILY 05/25/25
netarsudil 0.02 %-latanoprost 0.005 % eye drops (Rocklatan) 1 drp RIGHT EYE HS 05/25/25
prednisolone acetate 1 % eye drops,suspension 1 drp RIGHT EYE QID 05/25/25
Review of Systems
-
Constitutional: Reports No Symptoms
EENT: Reports No Symptoms
Respiratory: Reports No Symptoms
Cardiac: Reports No Symptoms
Abdomen/GI: Reports No Symptoms
: Reports No Symptoms
Musculoskeletal: Reports No Symptoms
Skin: Reports No Symptoms
Neurological: Reports No Symptoms
Endocrine: Reports No Symptoms
Hematologic/Lymphatic: Reports No Symptoms
Psych: Reports No Symptoms
Physical Exam
Vital Signs
Vital Signs
Temp Pulse Resp BP Pulse Ox
97.5 F 75 17 110/63 98
05/25/25 15:27 05/25/25 18:34 05/25/25 18:34 05/25/25 18:33 05/25/25 18:16
Physical Exam
General: Well Developed, Well Nourished and No Apparent Distress
HEENT: NormoCephalic, Moist mucous membranes and Atraumatic
Respiratory: Clear
Cardiac: S1/S2, Regular Rhythm and Peripheral Edema; No Murmur or Rub
GI: Soft, Non Tender, Non Distended and Normal Bowel Sounds; No Organomegaly
Rectal: Deferred by Provider
Musculoskeletal: No Clubbing, No Cyanosis and No Edema
Skin: No Rash
Neuro: Nonfocal/grossly intact
Laboratory Results
-
05/25/25 15:36
05/25/25 15:36
Laboratory Results
Total Bilirubin 1.0 mg/dl (0.2-1.3) 05/25/25 15:36
AST 24 U/L (17-59) 05/25/25 15:36
ALT 28 U/L (0-50) 05/25/25 15:36
Alkaline Phosphatase 67 U/L (38-126) 05/25/25 15:36
Troponin I 0.013 ng/ml 05/25/25 15:36
Data Reviewed
-
Lab Data: Labs Reviewed by me
Impression/Plan
-
IMPRESSION:
PLAN:
# Acute HFrEF exacerbation
- EF of 35 to 40%
-BNP 11,000
- Check I's and O's, daily weight
- 40 IV Lasix daily
- Check echo
-Continue ramipril
- Cardiology consulted
# Hyponatremia secondary to CHF
- Sodium 128
- Monitor with diuresis
# CARLEEN versus CKD
# Hyperkalemia secondary to lisinopril
-Creatinine 1.5
- Hold lisinopril
- Monitor with diuresis
CAD status post CABG
- Continue atorvastatin
Paroxysmal atrial fibrillation with Watchman
- Continue Coreg
- Continue Eliquis, patient now on reduced dose due to hemorrhage of right eye
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
- Continue acetazolamide, brimonidine
Type 2 diabetes
- Hold metformin
- Insulin sliding scale
Hyperlipidemia
- Continue statin
History of bleeding hemorrhoid
Full code
DVT prophylaxis�Eliquis
Cardiac diet
[2025-05-25 20:28] VITALS: BP 125/69
[2025-05-25 21:00] VITALS: BP 107/70; BP 120/69; BMI 27.9
[2025-05-25] MEDS: LIPITOR 40 MG PO (21:43)
[2025-05-25 21:47] LABS: Glucose - Point of Care 152 mg/dl (70-99)
[2025-05-25 21:54] VITALS: BMI 27.9
[2025-05-25] MEDS: MELATONIN 5 MG PO (22:45)
[2025-05-25] MEDS: COREG 6.25 MG PO (22:45)
[2025-05-25] MEDS: ELIQUIS 2.5 MG PO (22:46)
[2025-05-25] MEDS: FEOSOL 325 MG PO (22:46)
[2025-05-25] MEDS: DIAMOX SR SEQUELS 500 MG PO (22:47)
[2025-05-25] MEDS: CYCLOGYL 1% EYE DROPS 1 DROP RIGHT EYE (22:49)
[2025-05-25] MEDS: XALATAN OPHTHALMIC SOLUTION 1 DROP RIGHT EYE (22:50)
[2025-05-25] MEDS: PRED FORTE 1% EYE DROPS 1 DROP RIGHT EYE (22:51)
[2025-05-25 23:00] VITALS: BP 100/53
[2025-05-25] MEDS: ALPHAGAN 0.2% EYE DROPS 1 DROP RIGHT EYE (23:14)
[2025-05-26] VITALS (12 sets, daily range): BP systolic 88–125; BP diastolic 50–76; BMI 27.5
--- NOTE | 2025-05-26 00:10 | PTCARENOTE ---
Pt arrived via stretcher and walked to the bedside 2 assist. Pt oriented to unit, bed in lowest position, side rails up, call ervin within reach. Will continue plan of care.
--- NOTE | 2025-05-26 04:45 | W.PN.UPDATE ---
Update Note
Progress Note Update
ramipril placed on hold due to hypotension and CARLEEN k 5.2. Admitting Dr. hardy.
--- NOTE | 2025-05-26 05:15 | PTCARENOTE ---
Around 04:15, Pt's BP was 89/53. Manual BP taken and was 90/50. RECORD CHANGER TESTER Hepangelique Ambriz made aware. Rechecked 30 minutes later, was 88/62. RECORD CHANGER TESTER updated. Parameters added to Coreg for AM. AM Labs drawn. No further orders at this time. Plan of care ongoing.
[2025-05-26 05:36] LABS: Hematocrit 34.2 % (39.0-52.0); Hemoglobin 11.3 g/dL (13.0-18.0); Mean Corp Hgb Conc. 33.0 g/dL (33.0-37.0); Mean Corpuscular Volume 97.2 fL (80.0-94.0); Nucleated Red Blood Cells % 0 % (-); Platelet Count 248 10^3/uL (130-400); Red Cell Dist. Width 14.2 % (11.5-14.5)
[2025-05-26 05:56] LABS: ALT (SGPT) 27 U/L (0-50); AST (SGOT) 21 U/L (17-59); Albumin 3.7 g/dl (3.5-5.0); Alkaline Phosphatase 75 U/L (38-126); Blood Urea Nitrogen 45 mg/dl (9-20); Calcium 9.4 mg/dl (8.4-10.2); Carbon Dioxide 24 mmol/L (22-30); Chloride 100 mmol/L (98-107); Estimated Creatinine Clearance 39 ml/min; Glucose 124 mg/dl (70-99); Potassium 4.3 mmol/L (3.5-5.1); Sodium 130 mmol/L (135-145); Total Protein 6.1 g/dl (6.3-8.2); eGFR 53.84
--- NOTE | 2025-05-26 07:32 | CON.CAR ---
Addendum entered and electronically signed by López Lopes MD 05/26/25 11:07:
84-year-old man with watchman placement March 2025 admitted now with acute on chronic heart failure with mildly reduced EF and right retinal hemorrhage April 2025 with glaucoma, change in mental status
PMH/PSH: CAD, CABG 2002, pulmonary vein isolation for atrial fibrillation 2019, hemorrhoidal bleeding, watchman March 2025, heart failure with mildly reduced EF 40-45%, diabetes
Current meds: Furosemide 40 mg a day, Diamox 500 twice daily, apixaban 2.5 mg twice daily, atorvastatin 40 mg a day, Alphagan eyedrops, carvedilol 6.25 twice daily, Cyclogyl, Trusopt, Claritin, melatonin, prednisolone, insulin, ramipril 5 twice
daily, iron, patient had been on spironolactone
101/65, pulse 72, respiratory rate 14, afebrile, weight 79.5 kg, was 76.6 kg April 20 and 80.6 kg at admission, at bedside, low vision, no distress but slightly tachypneic, diminished breath sounds at bases, soft systolic murmur at base and
apex, trace to 1+ edema abdomen benign JVD difficult to assess
Chest x-ray cardiomegaly, poor inspiration, blunted bases, possible left lower lobe infiltrate
Sinus rhythm with PACs and first-degree AV block, left axis deviation, inferior VT, possible anterolateral VT
Hemoglobin 11.3, platelets 248, BUN and creatinine 45 and 1.3, potassium 4.3, sodium 130, proBNP 11,400, troponin 0.013
Echo September 2023: EF 35-40%, mild to moderate MR, mild aortic stenosis, mean gradient 9, pulmonary artery systolic pressure 45-50
MICHAEL 04/19/2025: Normal LV size and function, septal contraction abnormality, normal RV, dilated left atrium, normal right atrium, no left atrial appendage clot, mild to moderate MR, mild aortic regurgitation, restricted aortic leaflets
Impression:
Acute on chronic heart failure, ejection fraction mildly reduced versus preserved EF
History of CABG
Low vision bilaterally with recent right retinal hemorrhage and glaucoma
PVI 2019 and 2024
31 mm Watchman March 2025
CARLEEN now with mild hyperkalemia
CAD CABG 2002
Diabetes
Additional diagnoses as below. Reviewed in detail and agree, unless otherwise specified.
Plan:
He presents with acute heart failure, previously with mildly reduced EF, by transesophageal echo EF was normal in March.
He had been on spironolactone, now discontinued. He had been on an SGLT2 antagonist, currently on hold.
He is relatively hypotensive, with CARLEEN and borderline hyperkalemia. Ramipril is now on hold would probably restart at lower dose 5 mg a day.
I have also decreased his carvedilol given relative bradycardia and first-degree AV block.
He is on low-dose Eliquis given recent retinal hemorrhage
Eventual restart of SGLT2 antagonist if possible.
We will check an echo.
Original Note:
Consultation
Consultation Request
Date/Time Consultation Requested: 05/25/2025 2236
Date/Time Consultation Performed: 05/26/2025 0730
Requesting Provider: Dr Cano
Performing Provider: BRENDAN Armendariz for Dr Lopes
Reason for Consultation: SOB, confusion
Medical History
-
Chief Complaint: SOB, confusion
History of Present Illness:
HPI: Sathish is an 84 year old male with PMH of paroxysmal afib s/p PVI 2019 and most recently redo PVI with Watchman 04/19/2025, CAD s/p CABG, chronic HFmrEF, CM, DM, HTN, HLD falls, hemorrhoidal bleeding, iron deficiency anemia who presented to [facility]
with shortness of breath, increased LE edema, and intermittant confusion. Ten days ago he had acute vision loss in his right eye and was seen at [facility] where he was diagnosed with spontaneous retinal hemorrhage secondary to Eliquis. Being
worked up for glaucoma. Eliquis was held for one week (pt kept on ASA 81 mg daily) and Eliquis resumed after one week hold at reduced dose of 2.5 mg twice a day. In addition, he was started on acetazolamide and Lasix and spironolactone were
discontinued. He gained 5 pounds with increased lower extremity edema. He called the cardiology office earlier this week and Lasix was resumed at 40 mg 3 x week with no improvement in symptoms and he therefore presented to [facility] ED on 05/25/2025.
Also reports intermittent confusion. Denies unilateral weakness, numbness/tingling, slurred speech, dysphagia, facial droop.
ED workup:
proBNP 83194
trop 0.013
CXR no pulm edema
EKG: NSR 1 AVB, inf VT, ant/lat VT
PMH:
Paroxysmal Afib
s/p PVI 08/23/2020
s/p PVI and Watchman 04/19/2025
Chronic Eliquis anticoagulation
Hemorrhoidal bleeding
falls
glaucoma
R eye hemorrhage
CAD s/p CABG 2002
Chronic HFmrEF
Nonischemic CM (EF 40-45%)
DM2
HTN
HLD
Recent parainfluenza virus
Suspected osteomyelitis R 2nd toe (finished 6 week course of doxy 03/12)
Past Medical History
Past Medical History: Other (In HPI)
Past Surgical History: Cardiac (CABG 2002, PVI 07/2020, ) and Other (b/l cataracts)
Social History
Tobacco: Non-Smoker
Alcohol: Occasional
Drug: None
Personal:
Living: With Family
Family History
Family History: Cancer and Hypertension
Allergies / Home Medications
Allergy/AdvReac Type Severity Reaction Status Date / Time
No Known Allergies Allergy Verified 04/19/25 08:24
�Medication �Instructions �Recorded �Confirmed �Type
apixaban 5 mg tablet (Eliquis) 2.5 mg PO BID Blood clot 11/30/19 05/25/25 History
prevention/tx
atorvastatin 40 mg tablet 40 mg PO HS High cholesterol 11/30/19 05/25/25 History
coenzyme Q10 100 mg capsule (Co 200 mg PO DAILY@1200 Supplement 11/30/19 05/25/25 History
Q-10)
multivitamin with folic acid 400 1 tab PO DAILY@1200 Supplement 11/30/19 05/25/25 History
mcg tablet (Tab-A-Veena)
ramipril 5 mg capsule 5 mg PO BID Blood pressure 11/30/19 05/25/25 History
carvedilol 6.25 mg tablet 6.25 mg PO BID Blood pressure 08/22/20 05/25/25 History
melatonin 5 mg tablet 5 mg PO HS sleep 08/22/20 05/25/25 History
furosemide 40 mg tablet 40 mg PO Q48H Fluid 03/12/23 05/25/25 History
Retention/Swelling
ferrous sulfate 325 mg (65 mg 325 mg PO Q48H 04/19/25 05/25/25 History
iron) tablet
acetazolamide 500 mg 500 mg PO BID 05/25/25 05/25/25 History
capsule,extended release
brimonidine 0.2 % eye drops 1 drp RIGHT EYE Q8H 05/25/25 05/25/25 History
cyclopentolate 1 % eye drops 1 drp RIGHT EYE BID 05/25/25 05/25/25 History
dorzolamide-timolol (PF) 2 %-0.5 % 1 drp RIGHT EYE BID 05/25/25 05/25/25 History
eye drops in a dropperette (Cosopt
(PF))
loratadine 10 mg tablet (Claritin) 10 mg PO DAILY@1200 05/25/25 05/25/25 History
metformin 500 mg tablet,extended 500 mg PO DAILY 05/25/25 05/25/25 History
release 24 hr
netarsudil 0.02 %-latanoprost 1 drp RIGHT EYE HS 05/25/25 05/25/25 History
0.005 % eye drops (Rocklatan)
prednisolone acetate 1 % eye 1 drp RIGHT EYE QID 05/25/25 05/25/25 History
drops,suspension
Review of Systems
-
History Source: Patient
All other systems: Negative unless noted
Physical Exam
Vital Signs
Temp Pulse Resp BP Pulse Ox
97.6 F 62 18 101/65 97
05/26/25 04:10 05/26/25 04:10 05/26/25 04:10 05/26/25 06:07 05/26/25 04:10
GEN: No distress, awake, Ox3
HEENT: supple, anicteric, mmm
LUNGS: decreased BS
CV: Reg, S1/S2, 1/6 syst LSB, no murmur
ABD: soft, BS+, NT/ND
EXT: 1+ LE edema, LEs cold
NEURO: Gross non-focal, 5/5 UE strength, speech clear
SKIN: No rash
Lab Results
05/26/25 05:22
05/26/25 05:22
Troponin I 0.013 ng/ml 05/25/25 15:36
[id number] Pept 46201 pg/ml 05/25/25 15:36
Impression / Plan
-
PCP: Bobbi Salvador MD
CDY: Ivan Amador MD
Impression:
shortness of breath
weight gain
intermittant confusion
R eye hemorrhage requiring one week hold of Eliquis and reduction in dose to 2.5 mg bid
Symptomatic paroxysmal Atrial fibrillation
prior PVI 2019
post redo PVI and Watchman device implant 31mm 04/19/25
CARLEEN
Hyperkalemia and Hypermagnesemia
CAD/CABG 2002
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
Ambulatory dysfunction with frequent falls
NIDDM
Hyperlipidemia
h/o bleeding hemorrhoids
Previous cardiovascular studies:
MICHAEL 04/19/2025: Successful deployment of Watchman Flex Pro 31 mm device in left atrial appendage. Mild LOLLY device flow, mild to moderate MR, mild AI
Echo 10/21/2023: EF 35 to 40%, mild to moderate MR, mild , 14/9 mmHg, mild TR
Cardiac catheterization 12/07/2019: Patent ALDRICH to LAD, SVG to diagonal, and SVG to OM 2. Severe north fork two-vessel CAD, moderate to severe LV dysfunction, RA 16, PA 58/24, PCWP 22
Plan:
Presents with acute on chronic HF with mildly reduced EF. Pro BNP 11,400.
-agree with IV Lasix
-check echo
-follow renal fxn. creat 1.5 on admit, 1.3 today
-cont home HF regimen including ramipril, carvedilol. ALso on Spironolactone but hold currently due to CARLEEN and hyperkalemia yesterday 05/23. If labs stable tomorrow resume spironolactone. t/c adding SGLT2i as outpt
- I&O's and daily weight
Afib
- he is now 5 weeks s/p PVI and Watchman
developed R eye hemorrhage with loss of vision on 05/19 and Eliquis stopped x 1 week, then resumed at lower dose Eliquis 2.5 mg bid. Was on ASA 81 mg while off Eliquis.
-cont ELiquis 2.5 mg bid
-telem: NSR freq pacs, occ pvcs, v couplets
-Patient without symptoms of recurrent A-fib
-3-month post watchman MICHAEL is scheduled
-Consider head CT given intermittent confusion in setting of recent short-term hold of oral anticoagulation for eye hemorrhage
- IntraOp MICHAEL 04/19/2025 with mild lolly- device flow
Data Reviewed
-
EKG: Tracing Personally Visualized and interpreted
Labs: Labs Reviewed by me
[2025-05-26 07:59] LABS: Glucose - Point of Care 121 mg/dl (70-99)
[2025-05-26] MEDS: LASIX 40 MG IV (08:26)
[2025-05-26] MEDS: ELIQUIS 2.5 MG PO ×2 (08:30→20:13)
[2025-05-26] MEDS: DIAMOX SR SEQUELS 500 MG PO ×2 (08:30→20:13)
[2025-05-26] MEDS: ALPHAGAN 0.2% EYE DROPS 1 DROP RIGHT EYE ×3 (08:31→23:17)
[2025-05-26] MEDS: CYCLOGYL 1% EYE DROPS 1 DROP RIGHT EYE ×2 (08:31→20:15)
[2025-05-26] MEDS: PRED FORTE 1% EYE DROPS 1 DROP RIGHT EYE ×4 (08:32→21:17)
[2025-05-26] MEDS: TRUSOPT 2% OPHTHALMIC SOLUTION 1 DROP RIGHT EYE ×2 (08:32→20:16)
[2025-05-26] MEDS: NOVOLOG FLEXPEN-LOW RESISTANCE SC ×2 (08:33→12:24)
[2025-05-26] MEDS: COREG 3.125 MG PO ×2 (08:50→20:13)
[2025-05-26] MEDS: DESENEX/MITRAZOL/ZEASORB 1 APPLIC TOPICAL ×2 (08:51→20:17)
[2025-05-26] MEDS: COREG PO (09:21)
--- NOTE | 2025-05-26 11:15 | HFEDUCATE ---
84 yo male admitted with SOB over past week, increase in weight and increased LE edema. Past medical history includes CAD post CABG, HFmrEF, A-fib with watchman, hypertension and Type 2 DM. His current ejection fraction by echocardiogram is 35-40% .
He lives at home with his , Esme. Esme reports he follows a low sodium diet and a 48oz fluid restriction per day. He has a scale at home and he is weighed everyday and it is recorded in a notebook.
I provided HF education and discussed the usual lifestyle recommendations. I advised he continue to follow a low sodium diet of 5151-7690 mg. per day, and limit it to 500-750 mg. per meal. I provided Esme with a sample menu with sodium amounts
per meal. I advised a 48oz fluid restriction per day and discussed ways to achieve the recommendations. I also advised they continue to weigh daily and monitor for any slight weight gain. I explained how to monitor for exacerbations. We discussed
other alarming symptoms to watch for and when to notify his provider. We discussed need for medications.
Recommendations:
Continue all HF recommended medications as ordered on discharge.
Limit sodium intake to <500-750 mg per meal.
Limit fluid intake to <48 oz per day.
Daily weights and contact provider for any weight gain >3lbs in one day or 5lbs in one week.
Follow up with provider as recommended.
[2025-05-26 11:36] LABS: Glucose - Point of Care 150 mg/dl (70-99)
[2025-05-26] MEDS: THERAGRAN 1 TABLET PO (12:21)
[2025-05-26] MEDS: CLARITIN 10 MG PO (12:21)
[2025-05-26 13:19] LABS: Glycohemoglobin (HgbA1c) 6.6 % (4.0-5.6)
--- NOTE | 2025-05-26 13:20 | W.PN.HOSP.TC ---
Today's Communication/Plan
-
echo
lasix
monitor Scr
eventual re-initiation of ACEI
Assessment / Plan
Assessment / Plan
GEN: No distress, awake, Ox3
HEENT: supple, anicteric, mmm
LUNGS: decreased BS
CV: Reg, S1/S2, 1/6 syst LSB, no murmur
ABD: soft, BS+, NT/ND
EXT: 1+ LE edema, LEs cold
NEURO: Gross non-focal, 5/5 UE strength, speech clear
SKIN: No rash
# Acute HFrEF exacerbation
- EF of 35 to 40%
-BNP 11,000
- Check I's and O's, daily weight
- 40 IV Lasix daily
- Check echo
- Holding ramipril due to hypertension, would start a lower dose
� Eventual restart of SGLT2 antagonist
� Decrease Coreg dose given bradycardia first-degree AV block
- Cardiology consulted
# Hyponatremia secondary to CHF
- Sodium 128
- Monitor with diuresis
# CARLEEN versus CKD
# Hyperkalemia secondary to lisinopril
� Probable cardiorenal
- Hold lisinopril
- Monitor with diuresis
CAD status post CABG
- Continue atorvastatin
Paroxysmal atrial fibrillation with Watchman
- Continue Coreg
- Continue Eliquis, patient now on reduced dose due to hemorrhage of right eye
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
- Continue acetazolamide, brimonidine
Type 2 diabetes
- Hold metformin
- Insulin sliding scale
Hyperlipidemia
- Continue statin
History of bleeding hemorrhoid
Full code
DVT prophylaxis�Eliquis
Cardiac diet
Anticipated Discharge: 24 - 48 hours
Subjective/Interval History
-
Date of Service: May 26, 2025
Some improvement from diuresis
Objective Data
-
Labs:
Laboratory Results
05/26/25
05:22
WBC 9.0
Hgb 11.3 L
Hct 34.2 L
Plt Count 248
Sodium 130 L
Potassium 4.3
Chloride 100
Carbon Dioxide 24
BUN 45 H
Creatinine 1.3
Glucose 124 H
Calcium 9.4
Total Bilirubin 1.1
AST 21
ALT 27
Alkaline Phosphatase 75
Vital Signs:
Vital Signs
Temp Pulse Resp BP Pulse Ox
98 F 64 14 107/52 95
05/26/25 10:53 05/26/25 10:53 05/26/25 10:53 05/26/25 10:53 05/26/25 10:53
I&O
05/25/25 05/26/25 05/27/25
06:59 06:59 06:59
Intake Total 240 / 240
Output Total 400 / 400
Balance -160 / -160
Review of Systems
-
History Source: Patient
All other systems: Not reviewed unless documented
Physical Exam
-
General: Well Developed and No Apparent Distress
HEENT: Normocephalic, Atraumatic and Moist Mucous Membranes
Respiratory: Clear to Auscultation
Cardiac: Regular Rhythm and S1/S2; Negative Murmur, Rub or Gallop
GI: Soft, Nontender, Nondistended and Normal Bowel Sounds; Negative Organomegaly
Rectal: Deferred by Provider
Musculoskeletal: No Clubbing, No Cyanosis and No Edema
Skin: Negative Rash
Neuro: Awake, Alert, Oriented, AO x 3 and Nonfocal/Grossly Intact
Data Reviewed
-
Diagnostic Radiology: Report Reviewed by me
Labs: Labs Reviewed by me
[2025-05-26 16:26] LABS: Glucose - Point of Care 189 mg/dl (70-99)
[2025-05-26] MEDS: NOVOLOG FLEXPEN-LOW RESISTANCE 1 UNITS SC (18:20)
[2025-05-26] MEDS: MELATONIN 5 MG PO (21:16)
[2025-05-26] MEDS: LIPITOR 40 MG PO (21:16)
[2025-05-26] MEDS: XALATAN OPHTHALMIC SOLUTION 1 DROP RIGHT EYE (21:17)
[2025-05-26 21:45] LABS: Glucose - Point of Care 180 mg/dl (70-99)
[2025-05-27] VITALS (34 sets, daily range): BP systolic 68–143; BP diastolic 45–105; BMI 26.9
[2025-05-27 07:18] LABS: Hematocrit 37.2 % (39.0-52.0); Hemoglobin 12.2 g/dL (13.0-18.0); Mean Corp Hgb Conc. 32.8 g/dL (33.0-37.0); Mean Corpuscular Volume 98.2 fL (80.0-94.0); Platelet Count 267 10^3/uL (130-400); Red Cell Dist. Width 14.3 % (11.5-14.5)
[2025-05-27 07:57] LABS: ALT (SGPT) 26 U/L (0-50); AST (SGOT) 18 U/L (17-59); Albumin 4.0 g/dl (3.5-5.0); Alkaline Phosphatase 77 U/L (38-126); Blood Urea Nitrogen 45 mg/dl (9-20); Calcium 9.4 mg/dl (8.4-10.2); Carbon Dioxide 24 mmol/L (22-30); Chloride 99 mmol/L (98-107); Estimated Creatinine Clearance 42 ml/min; Glucose 136 mg/dl (70-99); Magnesium 2.4 mg/dl (1.6-2.3); Potassium 4.5 mmol/L (3.5-5.1); Sodium 133 mmol/L (135-145); Total Protein 5.9 g/dl (6.3-8.2); eGFR 59.26
[2025-05-27] MEDS: COREG 3.125 MG PO (09:20)
[2025-05-27] MEDS: ELIQUIS 2.5 MG PO (09:20)
[2025-05-27] MEDS: DIAMOX SR SEQUELS 500 MG PO (09:21)
[2025-05-27 09:22] LABS: Glucose - Point of Care 147 mg/dl (70-99)
[2025-05-27] MEDS: LASIX 40 MG IV ×2 (09:22→16:18)
[2025-05-27] MEDS: CYCLOGYL 1% EYE DROPS 1 DROP RIGHT EYE (09:38)
[2025-05-27] MEDS: ALPHAGAN 0.2% EYE DROPS 1 DROP RIGHT EYE ×2 (09:38→17:31)
[2025-05-27] MEDS: PRED FORTE 1% EYE DROPS 1 DROP RIGHT EYE ×3 (09:39→17:32)
[2025-05-27] MEDS: DESENEX/MITRAZOL/ZEASORB 1 APPLIC TOPICAL (09:39)
[2025-05-27] MEDS: TRUSOPT 2% OPHTHALMIC SOLUTION 1 DROP RIGHT EYE (09:39)
[2025-05-27] MEDS: NOVOLOG FLEXPEN-LOW RESISTANCE SC ×2 (09:52→17:22)
--- NOTE | 2025-05-27 10:19 | W.PN.CARDCBS ---
Addendum entered and electronically signed by López Lopes MD 05/27/25 13:00:
84-year-old man with Watchman placement March 2025 admitted now with acute on chronic heart failure with mildly reduced EF and right retinal hemorrhage April 2025 with glaucoma, change in mental status
PMH/PSH: CAD, CABG 2002, pulmonary vein isolation for atrial fibrillation 2019, hemorrhoidal bleeding, watchman March 2025, heart failure with mildly reduced EF 40-45%, diabetes
Current meds: Acetazolamide 500 mg twice daily, apixaban 2.5 mg twice daily, reduced because of retinal hemorrhage, atorvastatin 40 mg at bedtime, Alphagan, Claritin, Rocklatan thin, prednisolone, insulin, iron, ramipril on hold, carvedilol 3.125
twice daily, Trusopt, furosemide 40 mg IV daily
Extremely short of breath after going to bathroom, with marked orthopnea
108/58, pulse 90, respiratory 20, afebrile, weight is 77.8 kg, down 1.7 kg, systolic murmur at base, JVD elevated, severe kyphosis, diminished breath sounds in the leg, mild edema
Echo 05/26/2025: EF 40%, septal straightening, global hypokinesis with regional variability, moderate eccentric MR, equivocal mitral valve prolapse dilated atrium, severe aortic stenosis by 2D imaging, peak/mean gradient 41/25 mmHg, aortic valve area
0.9 cm 2, dimensionless index 0.2, moderately dilated and hypokinetic RV, dilated RA, moderate TR and severe pulmonary hypertension, 73 mmHg
Hemoglobin 12.2, 267, BUN/creatinine 25 and 1.2, potassium 4.5,Furosemide 40 mg IV daily, acetazolamide 500 mg twice daily, apixaban 2.5 mg daily, atorvastatin 40 mg at bedtime, Trusopt, prednisolone, iron, ramipril 5 mg daily, currently on hold,
carvedilol 3.125 mg daily
Impression:
Acute on chronic HFrEF
Severe aortic stenosis, a new finding
Leukocytosis
History of CABG
Low vision bilaterally with recent right retinal hemorrhage and glaucoma
PVI 2019 and 2024
31 mm Watchman March 2025
CARLEEN, improved off ramipril
CAD CABG 2002
Diabetes
Plan:
Unfortunately, his aortic stenosis has progressed, and may be responsible for his acute on chronic HFrEF.
He will need to be evaluated for TAVR. If he is a candidate he will be higher risk.
For now, the issue is volume overload and need for continued diuresis. Will double furosemide to 40 mg IV twice daily.
Given relative hypotension and CARLEEN, would probably not restart ramipril
Transfer to IVU may facilitate his care.
Original Note:
Today's Communication / Plan
-
Ongoing IV diuresis increase Lasix to 40 mg IV twice daily
Transfer to IVU given intensifying diuresis in setting of severe aortic stenosis
Consider Perez insertion due to urinary retention
Continue to monitor renal function and electrolytes
Continue reduced dose of Coreg, Eliquis, atorvastatin
Check TSH in a.m.
Follow and trend WBC
Impression / Plan
-
PCP: Bobbi Salvador MD
CDY: Ivan Amador MD
Impression:
Presented 05/25/2025 shortness of breath, edema, intermittent confusion
Heart failure with reduced ejection fraction, Pro BNP 11,400
intermittant confusion
CARLEEN
Hyponatremia, hyperkalemia and Hypermagnesemia
R eye hemorrhage requiring one week hold of Eliquis and reduction in dose to 2.5 mg bid
Symptomatic paroxysmal Atrial fibrillation
prior PVI 2019
post redo PVI and Watchman device implant 31mm 04/19/25
CAD/CABG 2002
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
Ambulatory dysfunction with frequent falls
NIDDM
Hyperlipidemia
h/o bleeding hemorrhoids
Previous cardiovascular studies:
Echo 05/26/2025: EF 40%. Septal straightening and global hypokinesis with regional variability. Moderately dilated and hypokinetic RV, dilated RA. Dilated left atrium with moderate MR. Severe aortic stenosis with peak/mean gradient 41/25 mmHg and
DEVEN 0.9 cm�. Moderate TR with severe pulmonary hypertension 73 mmHg
MICHAEL 04/19/2025: Successful deployment of Watchman Flex Pro 31 mm device in left atrial appendage. Mild LOLLY device flow, mild to moderate MR, mild AI
Echo 10/21/2023: EF 35 to 40%, mild to moderate MR, mild , 14/9 mmHg, mild TR
Cardiac catheterization 12/07/2019: Patent ALDRICH to LAD, SVG to diagonal, and SVG to OM 2. Severe [place] two-vessel CAD, moderate to severe LV dysfunction, RA 16, PA 58/24, PCWP 22
Plan:
Present 05/26/25 with acute on chronic HF with reduced EF. Pro BNP 11,400.
-Ongoing IV diuresis, 6 pound weight loss thus far but continues to have evidence of volume overload as patient got very winded standing at bedside
-Increase Lasix to 40 mg IV twice daily (05/27)
-Creatinine improving with diuresis, 1.5 on admission, currently 1.2 (05/27)
-Home HF regimen includes ramipril 5 mg BID, carvedilol 6.25 mg BID and Spironolactone.
Coreg reduced to 3.125 mg BID (05/26). Aldactone and Ramipril held due to CARLEEN and hyperkalemia 05/26
Given improved creatinine and hypotension resume reduced dose of ramipril at 2.5 mg daily (05/27). If renal function and electrolytes stable in a.m. and BP allows consider resuming Aldactone at 12.5 mg daily
t/c adding SGLT2i as outpt
-Echo as noted above shows EF of 40% with severe and moderate TR with severe pulmonary hypertension
-Nursing reports patient having difficulty urinating. Bladder scan performed 05/27/2025 with 483 cc of urine. Reached out to hospitalist to discuss Perez placement.
-Continue I&O's and daily weight
- Requesting transfer to IVU status with intensifying diuresis in setting of severe
Severe aortic stenosis noted on echocardiogram 05/26/2025. Will need to monitor his volume status and vitals closely with uptitration of diuresis
- Will need TAVR evaluation once patient improved from heart failure standpoint
Afib
-he is now 5 weeks s/p PVI and Watchman
-developed R eye hemorrhage with loss of vision on 05/19 and Eliquis stopped x 1 week, then resumed at lower dose Eliquis 2.5 mg bid. Was on ASA 81 mg while off Eliquis.
-cont Eliquis 2.5 mg bid until he undergoes 3 month post Watchman MICHAEL (already scheduled)
-telem: Sinus bradycardia freq pacs, occ pvcs, v couplets. Patient without symptoms of recurrent A-fib
-Consider head CT given intermittent confusion in setting of recent short-term hold of oral anticoagulation for eye hemorrhage
- IntraOp MICHAEL 04/19/2025 with mild lolly- device flow
Leukocytosis, with WBC of 26 05/27/2025. Patient afebrile. Unclear etiology. Continue to trend
Plan discussed with patient, patient's , nursing who is at bedside and hospitalist
History of Present Illness 05/26/2025:
Sathish is an 84 year old male with PMH of paroxysmal afib s/p PVI 2019 and most recently redo PVI with Watchman 04/19/2025, CAD s/p CABG, chronic HFmrEF, CM, DM, HTN, HLD falls, hemorrhoidal bleeding, iron deficiency anemia who presented to [facility] with
shortness of breath, increased LE edema, and intermittent confusion. Ten days ago he had acute vision loss in his right eye and was seen at [facility] where he was diagnosed with spontaneous retinal hemorrhage secondary to Eliquis. Being worked up
for glaucoma. Eliquis was held for one week (pt kept on ASA 81 mg daily) and Eliquis resumed after one week hold at reduced dose of 2.5 mg twice a day. In addition, he was started on acetazolamide and Lasix and spironolactone were discontinued.
He gained 5 pounds with increased lower extremity edema. He called the cardiology office earlier this week and Lasix was resumed at 40 mg 3 x week with no improvement in symptoms and he therefore presented to [facility] ED on 05/25/2025. Also reports
intermittent confusion. Denies unilateral weakness, numbness/tingling, slurred speech, dysphagia, facial droop.
Progress Note - Market Research Consultant
Subjective
Date of Service: May 27, 2025
Patient seen and examined with family and nursing at bedside. Appears to be somewhat dyspneic and had difficulty standing next to bed earlier when trying to urinate.
Objective
Labs:
05/27/25 06:53
05/27/25 06:53
Labs
Hgb 12.2 g/dL (13.0-18.0) L 05/27/25 06:53
Hct 37.2 % (39.0-52.0) L 05/27/25 06:53
Plt Count 267 10^3/uL (130-400) 05/27/25 06:53
Sodium 133 mmol/L (135-145) L 05/27/25 06:53
Potassium 4.5 mmol/L (3.5-5.1) 05/27/25 06:53
BUN 45 mg/dl (9-20) H 05/27/25 06:53
Creatinine 1.2 mg/dL (0.7-1.3) 05/27/25 06:53
Glucose 136 mg/dl (70-99) H 05/27/25 06:53
Troponins
05/25/25
15:36
Troponin I 0.013
Vital Signs and I&O:
Vital Signs
Temp Pulse Resp BP Pulse Ox
98.1 F 77 19 121/73 94
05/27/25 07:00 05/27/25 07:00 05/27/25 07:00 05/27/25 07:00 05/27/25 07:00
Vital Signs
Temp Pulse Resp BP Pulse Ox
98.1 F 77 19 121/73 94
05/27/25 07:00 05/27/25 07:00 05/27/25 07:00 05/27/25 07:00 05/27/25 07:00
Intake & Output
05/25/25 05/26/25 05/27/25 05/28/25
06:59 06:59 06:59 06:59
Intake Total 1080 / 1080
Output Total 1999
Balance -920 / -920
Physical Exam
Physical Exam
GEN: Elderly gentleman who appears to be chronically ill sitting in bed slightly dyspneic, awake, Ox3
HEENT: supple, anicteric, mmm
LUNGS: Decreased breath sounds at bases CTA, no wheezes/rales
CV: Irregularly irregular, S1/S2, 2/6 harsh radiating murmur
ABD: soft, BS+, NT/ND
EXT: +1-2 bilateral lower extremity edema, skin changes consistent with chronic venous stasis
NEURO: Gross non-focal
SKIN: No rash, warm, dry,
[2025-05-27 11:43] LABS: Glucose - Point of Care 159 mg/dl (70-99)
[2025-05-27] MEDS: NON-FORMULARY ITEM RIGHT EYE (12:07)
[2025-05-27] MEDS: NOVOLOG FLEXPEN-LOW RESISTANCE 1 UNITS SC (12:23)
[2025-05-27] MEDS: THERAGRAN 1 TABLET PO (12:24)
[2025-05-27] MEDS: CLARITIN 10 MG PO (12:24)
--- NOTE | 2025-05-27 12:58 | W.PN.HOSP.TC ---
Addendum entered and electronically signed by Nirmal Alexander MD 05/27/25 13:05:
CXR for further eval; WBC higher today - trend
Original Note:
Today's Communication/Plan
-
Increase Diuresis - monitor BPs
Low BPs may be limiting diuresis, especially in setting of severe
/TAVR work up as per cards
monitor Is&Os, weight
Tx to IVU for closer monitoring
Assessment / Plan
Assessment / Plan
GEN: No distress, awake, Ox3
HEENT: supple, anicteric, mmm
LUNGS: decreased BS
CV: Reg, S1/S2, 1/6 syst LSB, no murmur
ABD: soft, BS+, NT/ND
EXT: 1+ LE edema, LEs cold
NEURO: Gross non-focal, 5/5 UE strength, speech clear
SKIN: No rash
# Acute HFrEF exacerbation
- EF of 35 to 40%
-BNP 11,000
- Check I's and O's, daily weight
- Increase Lasix to 40 IV Lasix BID
-Tx to IVU for closer monitoring
--Check echo with new Severe
- Holding ramipril due to hypertension, would start a lower dose
� Eventual restart of SGLT2 antagonist
� Decrease Coreg dose given bradycardia first-degree AV block
- Cardiology consulted
#Severe
-contributing factor in SOB
- Diuresis
-Eventual work up for possible TAVR - defer to cards
#Leukocytosis
-no obvious infectious source
-f/u cxr as SOB
# Hyponatremia secondary to CHF
- Monitor with diuresis
# CARLEEN versus CKD
# Hyperkalemia secondary to lisinopril
� Probable cardiorenal
- Hold lisinopril
- Monitor with diuresis
CAD status post CABG
- Continue atorvastatin
Paroxysmal atrial fibrillation with Watchman
- Continue Coreg
- Continue Eliquis, patient now on reduced dose due to hemorrhage of right eye
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
- Continue acetazolamide, brimonidine
Type 2 diabetes
- Hold metformin
- Insulin sliding scale
Hyperlipidemia
- Continue statin
History of bleeding hemorrhoid
Full code
DVT prophylaxis�Eliquis
Cardiac diet
Total time spent on today's encounter was 51 minutes which included time spent in counseling the patient/family regarding diagnosis and treatment plan as listed above, goals of care, and symptom management. Case was discussed with nursing staff,
specialists, and care coordinators/case management. All labs and imaging personally reviewed by me. Remainder the time spent in detailed review of previous records, lab data, imaging, and other medical provider documentation.
Anticipated Discharge: > 48 hours
Subjective/Interval History
-
Date of Service: May 27, 2025
ECHO with Severe ; more SOB with ambulating today
Objective Data
-
Labs:
Laboratory Results
05/27/25
06:53
WBC 26.1 H
Hgb 12.2 L
Hct 37.2 L
Plt Count 267
Sodium 133 L
Potassium 4.5
Chloride 99
Carbon Dioxide 24
BUN 45 H
Creatinine 1.2
Glucose 136 H
Calcium 9.4
Total Bilirubin 1.4 H
AST 18
ALT 26
Alkaline Phosphatase 77
Vital Signs:
Vital Signs
Temp Pulse Resp BP Pulse Ox
98.0 F 90 20 108/58 95
05/27/25 10:56 05/27/25 10:56 05/27/25 10:56 05/27/25 10:56 05/27/25 10:56
I&O
08/28/25 08/29/25 08/30/25
06:59 06:59 06:59
Intake Total 1080 / 1080
Output Total 1999
Balance -920 / -920
Review of Systems
-
History Source: Patient
All other systems: Not reviewed unless documented
Physical Exam
-
General: Well Developed and No Apparent Distress
HEENT: Normocephalic, Atraumatic and Moist Mucous Membranes
Respiratory: Clear to Auscultation
Cardiac: Regular Rhythm and S1/S2; Negative Murmur, Rub or Gallop
GI: Soft, Nontender, Nondistended and Normal Bowel Sounds; Negative Organomegaly
Rectal: Deferred by Provider
Musculoskeletal: No Clubbing, No Cyanosis and No Edema
Skin: Negative Rash
Neuro: Awake, Alert, Oriented, AO x 3 and Nonfocal/Grossly Intact
Data Reviewed
-
Diagnostic Radiology: Report Reviewed by me
Labs: Labs Reviewed by me
--- NOTE | 2025-05-27 13:07 | CM ---
Patient seen at bedside
IA completed
Dx: acute CHF exac
PMH: CAD status post CABG, CHF, atrial fibrillation with watchman placed last month, hypertension, type 2 diabetes presenting with shortness of breath over the past week. 10 days ago he had acute vision loss in his right eye. He saw [facility] and
was diagnosed with spontaneous retinal hemorrhage secondary to Eliquis and subsequent glaucoma
Patient lives with his in a 2 story home, no steps to enter, 11 steps to bedroom/bathroom, powder room on 1st floor
PLOF: Independent with cane, Independent with ADL's, fills med box
DME: cane, walker
Denies VN/has had outpatient cardiac rehab in past 2019
Denies insecurities
PCP: Fabricio Hoang/Daryn
Pharmacy: [facility], [facility]
PLAN: TBD, follow hospital progression, CM to follow for dispo planning/needs
[2025-05-27 17:01] LABS: Glucose - Point of Care 114 mg/dl (70-99)
[2025-05-27 19:36] LABS: Glucose - Point of Care 110 mg/dl (70-99)
--- NOTE | 2025-05-27 19:56 | PTCARENOTE ---
Addendum entered by Estephania Choi RN 05/27/25 20:08:
NEON TUBE BENDER on unit, okay for patient transfer to IVU at this time with better pressure in Left arm. No meds given at this time. Notified receiving REGINALD Boateng in IVU of decision to move forward with patient transfer.
Original Note:
Assumed care on patient from previous RN - patient waiting on bed to IVU since this afternoon, bed just obtained after 1900pm. BP 76/46, rechecked 79/49 automatic right arm, left arm reading 112/90 automatic, dayshift RN unable to obtain manual BP
due to patient tremors. Alert, oriented, reported by dayshift that patient has been increasingly forgetful/confused throughout afternoon. Family is at bedside. BRENDAN Saunders notified, already on unit at this time. Awaiting further orders prior to
transfer off unit. Will monitor.
--- NOTE | 2025-05-27 20:07 | W.PN.UPDATE ---
Update Note
Progress Note Update
Asked to evaluate patient, hypotensive, BP 76/46 on right upper extremity. Asked to recheck on left upper extremity, BP 112/90, HR 80. IVU was holding transfer due to low BP and possible need to start on IV Levophed, then would need transfer to IMU.
With improved BP, no IV medication needed to be started at this time. Patient transferred to IVU as per orders.
[2025-05-27 21:16] LABS: Glucose - Point of Care 152 mg/dl (70-99)
[2025-05-27] MEDS: LEVOPHED 250 IV (21:19)
--- NOTE | 2025-05-27 21:52 | W.PN.UPDATE ---
Addendum entered and electronically signed by BRENDAN Oviedo 05/27/25 22:56:
Nursing reports patient titrating of levophed is beyond IMU so will transfer to ICU. May need ART line for bp accuracy. Notified Tulio CARDONA and nursing retail chain store area supervisor.
Addendum entered and electronically signed by BRENDAN Oviedo 05/27/25 22:54:
Updated Rafiq Cannon MD and all questions answered. Reviewed case with Sourav SIMMNOS who will also update Rafiq Cannon Friday morning. Blood cultures along with santana cath and ekg with troponin added.
Original Note:
Update Note
Progress Note Update
Patient transferred to IMU for titratable levophed. to keep MAP >65. Rafiq Cannon [phone], a surgeon, would like an update in the morning..he likely will be in surgery unfortunately.
--- NOTE | 2025-05-27 22:01 | PTCARENOTE ---
Addendum entered by Kilo Tse RN 05/27/25 22:07:
family at the bedside. updated by RN and Kristal Ellis.
Original Note:
received the patient from at approx 2044. patient oriented but lethargic. answered all questions appropriately. patient states 'just feeling tired.' HR SR 80s-90s with PVCs/PACs. appeared to be irregular/afib- EKG completed- SR. low blood
pressures. 70s/50s. both arms done. manual as well- 70s systolic. sp02 81 on RA- placed patient on 2L to get into the 90s. patient states feeling short of breath. crackles b/l bases. shallow breathing. accessory muscle use. updated Kristal Ellis
house OPTICAL INSTRUMENT SPECIALIST. came to the bedside. Levo started. new IV site placed. orders placed for IMU transfer.
report given to IMU RN. transport patient via bed by RN.
[2025-05-27] MEDS: COREG PO (22:02)
--- NOTE | 2025-05-27 22:45 | PTCARENOTE ---
Pt arrived from IVU to IMU on 6 of LEVO. Pt bp responding well. Short time later Pt bp started to drop not meeting map goal. LEVO now at 8 Night TOMATO PASTE MAKER made aware. Orders for ICU placed by TOMATO PASTE MAKER. Report given to PATIENT'S LIBRARIAN. Levo now at 10. bp meeting map goal.
[2025-05-27 23:42] LABS: Troponin I 0.042 ng/ml
--- NOTE | 2025-05-27 23:57 | W.PN.UPDATE ---
Update Note
Progress Note Update
Procedure Note: Arterial Line�
� Right Wrist Arrow 20 (11/30)�
Diagnosis:�Acute heart failure, severe �
IV Line Comments: Uneventful Procedure�
James's test completed pre-procedure: Yes�
A-Line Comments: Sterile technique as per standard protocol, Ultrasound guided insertion�
Functioning A-line in situ: Yes�
A-line Insertion Start Time:��0045
A-line in at:�0100�
[2025-05-28] VITALS (28 sets, daily range): BP systolic 82–125; BP diastolic 53–77; PULSE 2–75; BMI 27.2
[2025-05-28 01:04] LABS: Urine Character Clear (Clear)
[2025-05-28] MEDS: DIAMOX SR SEQUELS PO (01:05)
[2025-05-28] MEDS: ELIQUIS PO (01:05)
[2025-05-28] MEDS: MELATONIN PO (01:08)
[2025-05-28] MEDS: LIPITOR PO (01:08)
[2025-05-28] MEDS: FEOSOL PO (01:09)
[2025-05-28] MEDS: NON-FORMULARY ITEM RIGHT EYE ×2 (01:10→01:13)
[2025-05-28] MEDS: PRED FORTE 1% EYE DROPS RIGHT EYE (01:12)
[2025-05-28] MEDS: CYCLOGYL 1% EYE DROPS RIGHT EYE (01:12)
[2025-05-28 01:31] LABS: Urine Squamous Cell >30 /LPF (Few)
[2025-05-28 01:32] LABS: Urine Red Blood Cell >100 /HPF (0-2); Urine Urothelial Cell >30 /LPF (FEW)
[2025-05-28] MEDS: DESENEX/MITRAZOL/ZEASORB 1 APPLIC TOPICAL ×3 (01:38→20:00)
[2025-05-28] MEDS: LEVOPHED 250 IV ×5 (01:38→21:42)
[2025-05-28] MEDS: ROCEPHIN 1000 MG IV (01:39)
[2025-05-28] MEDS: STERILE WATER FOR INJECTION 10 ML IV (01:40)
[2025-05-28 01:41] LABS: B.E. -5.2 mmol/L; HCO3 24.4 mmol/L (21-28); O2 Saturation % 99.1 % (94-98); PCO2 67 mmHg (35-48); PO2 169 mmHg (83-108); Potassium 3.7 mMOL/L (3.5-5.1); Sodium 126 mMOL/L (136-145)
[2025-05-28] MEDS: ALPHAGAN 0.2% EYE DROPS RIGHT EYE (01:48)
[2025-05-28 01:49] LABS: Hematocrit 35.4 % (39.0-52.0); Hemoglobin 11.9 g/dL (13.0-18.0); Mean Corp Hgb Conc. 33.6 g/dL (33.0-37.0); Mean Corpuscular Volume 97.0 fL (80.0-94.0); Platelet Count 286 10^3/uL (130-400); Red Cell Dist. Width 14.7 % (11.5-14.5)
[2025-05-28 01:55] LABS: INR 1.68; PT 20.0 Sec (11.4-14.6)
[2025-05-28 02:13] LABS: ALT (SGPT) 25 U/L (0-50); AST (SGOT) 23 U/L (17-59); Albumin 3.5 g/dl (3.5-5.0); Alkaline Phosphatase 65 U/L (38-126); Blood Urea Nitrogen 46 mg/dl (9-20); Calcium 8.8 mg/dl (8.4-10.2); Carbon Dioxide 24 mmol/L (22-30); Chloride 98 mmol/L (98-107); Estimated Creatinine Clearance 32 ml/min; Glucose 189 mg/dl (70-99); Potassium 3.9 mmol/L (3.5-5.1); Sodium 129 mmol/L (135-145); Total Protein 5.8 g/dl (6.3-8.2); eGFR 41.96
[2025-05-28 02:21] LABS: Absolute Neutrophils -Man Diff 25.3 10^3/uL (1.4-6.5)
[2025-05-28 02:22] LABS: Platelets Checked Yes; Toxic Granulation 1+
[2025-05-28 02:24] LABS: Normal RBC Morphology No; Ovalocytes 1+; Tear Drop Red Blood Cells Occasional; Total Cells Counted 100
[2025-05-28 02:27] LABS: Troponin I 0.064 ng/ml
[2025-05-28 02:28] LABS: Basophilic Stippling Occasional; Polychromasia Occasional; Target Cells Occasional
[2025-05-28 02:29] LABS: Acanthocytes Occasional
--- NOTE | 2025-05-28 02:53 | PTCARENOTE ---
Late note due to patient care. Pt arrived to ICU lethargic, 10mcg of Levophed with an appropriate MAP of 65. 2/2 BC obtained. Perez placed for retention, 125ml out, UA sent to lab. Danie placed by Tulio BLACK. ABG results PH 7.17, BIPAP placed by
Respiratory therapist 09/02. Trops trending up, Tulio BLACK notified.
[2025-05-28] MEDS: NovoLIN R Flexpen 1 UNITS SC (03:27)
[2025-05-28 04:42] LABS: Glucose - Point of Care 180 mg/dl (70-99)
[2025-05-28 04:46] LABS: B.E. -4.9 mmol/L; HCO3 22.4 mmol/L (21-28); O2 Saturation % 98.6 % (94-98); PCO2 50 mmHg (35-48); PO2 112 mmHg (83-108)
[2025-05-28] MEDS: NOVOLOG FLEXPEN-MODERATE RESISTANCE 1 UNITS SC ×2 (06:09→12:17)
[2025-05-28 06:19] LABS: Glucose - Point of Care 159 mg/dl (70-99)
--- NOTE | 2025-05-28 07:08 | CON.INTV ---
Consultation
Consultation Request
Date/Time Consultation Requested: 05/28/25
Date/Time Consultation Performed: 05/28/25
Performing Provider: Ender
Reason for Consultation: Sepsis
Medical History
-
History of Present Illness:
84-year-old male with previous history of CAD status post CABG, congestive heart failure, atrial fibrillation presenting to ER for shortness of breath over the past week. He was recently diagnosed with spontaneous retinal hemorrhage following
acute vision loss in the right eye, felt to be due to Eliquis which was decreased to 2.5 mg twice daily. He was recently changed on his outpatient diuretic management and gained 5 pounds with increased lower extremity edema. Adm to on 05/25 for
Acute HF. Overnight 05/27/25, he was notably hypotensive and placed on pressors, admitted to ICU.
Past Medical History
Past Medical History: Other (see list below)
Social History
Tobacco: Non-smoker
Alcohol: None
Drug: None
Family History
Family History: Reviewed & Not Pertinent
Allergies / Home Medications
Allergies
Allergy/AdvReac Type Severity Reaction Status Date / Time
No Known Allergies Allergy Verified 04/19/25 08:24
Home Medications
�Medication �Instructions �Recorded �Confirmed �Last Taken �Type
apixaban 5 mg tablet (Eliquis) 2.5 mg PO BID Blood clot 11/30/19 05/25/25 05/25/25 History
prevention/tx
atorvastatin 40 mg tablet 40 mg PO HS High cholesterol 11/30/19 05/25/25 05/24/25 History
coenzyme Q10 100 mg capsule (Co 200 mg PO DAILY@1200 Supplement 11/30/19 05/25/25 05/24/25 History
Q-10)
multivitamin with folic acid 400 1 tab PO DAILY@1200 Supplement 11/30/19 05/25/25 05/24/25 History
mcg tablet (Tab-A-Veena)
ramipril 5 mg capsule 5 mg PO BID Blood pressure 11/30/19 05/25/2525 History
carvedilol 6.25 mg tablet 6.25 mg PO BID Blood pressure 08/22/20 05/25/25 05/25/25 History
melatonin 5 mg tablet 5 mg PO HS sleep 08/22/20 05/25/25 05/24/25 History
furosemide 40 mg tablet 40 mg PO Q48H Fluid 03/12/23 05/25/25 05/24/25 History
Retention/Swelling
ferrous sulfate 325 mg (65 mg 325 mg PO Q48H 04/19/25 05/25/25 Unknown History
iron) tablet
acetazolamide 500 mg 500 mg PO BID 05/25/25 05/25/25 05/25/25 History
capsule,extended release
brimonidine 0.2 % eye drops 1 drp RIGHT EYE Q8H 05/25/25 05/25/25 05/25/25 History
cyclopentolate 1 % eye drops 1 drp RIGHT EYE BID 05/25/25 05/25/25 05/25/25 History
dorzolamide-timolol (PF) 2 %-0.5 % 1 drp RIGHT EYE BID 05/25/25 05/25/25 05/25/25 History
eye drops in a dropperette (Cosopt
(PF))
loratadine 10 mg tablet (Claritin) 10 mg PO DAILY@1200 05/25/25 05/25/25 05/24/25 History
metformin 500 mg tablet,extended 500 mg PO DAILY 05/25/25 05/25/25 05/25/25 History
release 24 hr
netarsudil 0.02 %-latanoprost 1 drp RIGHT EYE HS 05/25/25 05/25/25 05/24/25 History
0.005 % eye drops (Rocklatan)
prednisolone acetate 1 % eye 1 drp RIGHT EYE QID 05/25/25 05/25/25 05/25/25 History
drops,suspension
Review of Systems
-
History Source: Patient
All other systems: Negative unless noted
Vitals / Labs / Diagnostic Testing
Vital Signs
Temp Pulse Resp BP Pulse Ox
97.0 F 60 30 95/62 95
05/28/25 05:46 05/28/25 04:15 05/28/25 05:46 05/28/25 04:00 05/28/25 05:46
Lab Data
05/28/25 01:33
05/28/25 06:00
Laboratory Results
05/28/25 05/28/25
01:33 04:35
PT 20.0 H
INR 1.68
pH 7.17 L* 7.26 L
pCO2 67 H 50 H
pO2 169 H 112 H
HCO3 24.4 22.4
O2 Delivery Level
Diagnostic Testing:
Physical Exam
-
HEENT: Normocephalic, Anicteric and Moist Mucous Membranes
Cardiovascular: S1/S2 and Regular Rhythm
Respiratory: Clear and Non-Labored Respirations
GI: Soft, Non Distended and Non Tender
Neurology: Awake, Alert, Oriented and No Motor Deficits
Skin: Warm, Dry and Good Color
General: Comfortable and Other (NAD)
Assessment
-
84-year-old male with previous history of CAD status post CABG, congestive heart failure, atrial fibrillation presenting to ER for shortness of breath over the past week. He was recently diagnosed with spontaneous retinal hemorrhage following
acute vision loss in the right eye, felt to be due to Eliquis which was decreased to 2.5 mg twice daily. He was recently changed on his outpatient diuretic management and gained 5 pounds with increased lower extremity edema. Adm to on 05/25 for
Acute HF. Overnight 05/27/25, he was notably hypotensive and placed on pressors, admitted to ICU.
Acute heart failure exacerbation
Acute hypercarbic respiratory failure on BiPAP
Leukocytosis
CARLEEN
Hyponatremia
Hyperglycemia
Elevated troponins
Septic shock on pressors
Urinary tract infection
Severe , severe PH on ECHO
Conditions present prior to admission
Restrictive lung disease, followed at [facility] by Dr. Veliz (Pul)
PFT 01/2025: FEV1 1.04 L 42%, FVC 1.53 L 46%, ratio 68-severe obstruction, TLC 3.03 43%, DLCO 33%-severe restriction, severe diffusion
Suspect due to combination of congestive heart failure and severe kyphosis
Insomnia
Atrial fibrillation s/p DCCV x 2/ablation
GERD
Chronic loculated left basilar pleural effusion on prior imaging
Atrial fibrillation
CHF
Diabetes
Peripheral edema
CAD s/p by-pass 2002
Cataracts bilateral
Plan
+current signs of metabolic encephalopathy
Denies pain at this time.
Pain/sedation: PRN
RASS goals: 0
Hemodynamically unstable, requiring pressors.
Requiring pressors: Levo @10, decreasing
Cardiac history reviewed--severe , HFrEF, severe PH noted
Prior ECHO reviewed
Hold home meds for hypotension
Monitor on telemetry
Oxygen needs: on low supplemental O2, not known to be on home O2
BIPAP overnight due to acute CO2 retention
Prior history of lung disease: severe RLD, noted from [facility] records, TLC 43%
He is certainly at risk for resp failure given his superimposed CHF -- I reviewed this with family
Supplemental O2 as indicated to maintain sats > 89%
CXR/CT reviewed indicating very low lung volumes
NPO, resume diet when able
Sales Clerk recommendations
Aspiration precautions, HOB > 30 degrees
Speech therapy eval can be considered if at elevated risk
GI prophylaxis if indicated
CARLEEN present, likely ATN
Void trials
Follow urine output, critical I/Os
Replete electrolytes as needed
Fever and increased WBC on presentation, suspect underlying UTI
Started on empiric antibiotics
Cultures sent/pending
Follow fever trend, WBC count
CBC stable, no signs of bleeding or coagulopathy.
DVT prophylaxis as assessed based on risk, including mechanical SCDs
Can transfuse if indicated for Hb <7, plt < 10
INR WNL
No prior h/o diabetes or thyroid disease
Monitor accuchecks PRN/SS coverage if needed
He remains full code, briefly discussed with family if patient has any advanced directives and states no. She notes they two of them have avoided all such discussions in the past and neither have any legal documentation of their wishes. I
have encouraged them to discuss this now.
Diagnostic Data
Chest X-Ray: 05/28/25- Continued improvement of aeration at the bilateral lung bases with mild residual bibasilar atelectasis and/or pneumonia. Poor overall lung volumes
CT Scan: CHEST 08/18/20-Essentially complete resolution of bilateral pneumonia. Resolution of left pleural effusion. No acute CT findings in the chest
Echo: 05/26/25-1. Normal left ventricular size and wall thickness with septal straightening and global hypokinesis with regional variability, EF 40%.
2. Thickened mitral leaflets, moderate eccentric mitral regurgitation, equivocal mitral valve prolapse in some views and dilated left atrium.
3. Severe aortic stenosis by 2D imaging, peak and mean gradients 41/25 mmHg, aortic valve area 0.9 cm 2, dimensionless index 0.2.
4. Moderately dilated and hypokinetic right ventricle, dilated right atrium, moderate tricuspid regurgitation and severe pulmonary hypertension, 73 mmHg systolic.
PFT's:
Reports and relevant images were personally reviewed.
Critical Care time 55 mins -- The patient is admitted for acute critical illness for the treatment of vital organ failure and/or prevention of further life-threatening conditions. Total care includes time spent in review of history, physical exam,
medications, hemodynamic/ventilator parameters, laboratory data, imaging and discussion with house staff, pharmacy, respiratory therapy, parts product analyst, and nursing.
[2025-05-28] MEDS: LASIX 40 MG IV (07:56)
[2025-05-28] MEDS: CYCLOGYL 1% EYE DROPS 1 DROP RIGHT EYE ×2 (07:58→20:01)
[2025-05-28] MEDS: PRED FORTE 1% EYE DROPS 1 DROP RIGHT EYE ×4 (07:58→21:52)
[2025-05-28] MEDS: NON-FORMULARY ITEM 1 UNIT RIGHT EYE ×2 (07:59→20:01)
[2025-05-28] MEDS: ALPHAGAN 0.2% EYE DROPS 1 DROP RIGHT EYE ×2 (08:00→16:59)
--- NOTE | 2025-05-28 08:05 | W.PN.CARDCBS ---
Today's Communication / Plan
-
Wean BiPAP if possible
Wean norepinephrine as possible
Continue IV Lasix
Acetazolamide reduced
Antibiotics, etc. per hospitalist and critical care
Impression / Plan
-
PCP: Bobbi Salvador MD
CDY: Ivan Amador MD
Impression:
Presented 05/25/2025 shortness of breath, edema, intermittent confusion
Acute respiratory failure on BiPAP with CO2 retention
Clinical sepsis, possibly pneumonia, possibly urosepsis
Acute on chronic heart failure with reduced ejection fraction, Pro BNP 11,400
Severe aortic stenosis
CARLEEN, creatinine 1.6
Hyponatremia
hyperkalemia on presentation, ramipril stopped
Vitreal hemorrhage R eye requiring one week hold of Eliquis and reduction in dose to 2.5 mg bid, with low vision bilaterally
Paroxysmal Atrial fibrillation
prior PVI 2019
post redo PVI and Watchman device implant 31mm 04/19/25
CAD/CABG 2002
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
Ambulatory dysfunction with frequent falls
NIDDM
Hyperlipidemia
h/o bleeding hemorrhoids
Echo 05/26/2025: EF 40%. Septal straightening and global hypokinesis with regional variability. Moderately dilated and hypokinetic RV, dilated RA. Dilated left atrium with moderate MR. Severe aortic stenosis with peak/mean gradient 41/25 mmHg and
DEVEN 0.9 cm�. Moderate TR with severe pulmonary hypertension 73 mmHg
MICHAEL 04/19/2025: Successful deployment of Watchman Flex Pro 31 mm device in left atrial appendage. Mild LOLLY device flow, mild to moderate MR, mild AI
Echo 10/21/2023: EF 35 to 40%, mild to moderate MR, mild , 14/9 mmHg, mild TR
Cardiac catheterization 12/07/2019: Patent ALDRICH to LAD, SVG to diagonal, and SVG to OM 2. Severe mohegan two-vessel CAD, moderate to severe LV dysfunction, RA 16, PA 58/24, PCWP 22
Plan:
Despite development of clinical sepsis last night on top of what we had previously suspected was predominantly heart failure in the setting of newly recognized aortic stenosis, he seems improved this morning.
Norepinephrine is currently 12 mcg/min but is being weaned and his blood pressure is now 120 systolic.
He still has a respiratory acidosis on BiPAP but looks brighter and more comfortable, is less confused and fully cooperative at the present time. and son are at bedside.
He is on acetazolamide but his serum bicarb is still within normal range. However, would expect bicarb to be higher in the setting of respiratory acidosis will reduce acetazolamide to 250 twice daily from 500 twice daily.
Will continue IV Lasix and attempt to wean norepinephrine.
He remains in sinus rhythm.
Defer management of clinical sepsis to hospitalist and critical care.
When stabilized he will need to undergo evaluation for TAVR to see if he is a candidate given all his comorbidities.
Discussed with nursing.
History of Present Illness 05/26/2025:
Sathish is an 84 year old male with PMH of paroxysmal afib s/p PVI 2019 and most recently redo PVI with Watchman 04/19/2025, CAD s/p CABG, chronic HFmrEF, CM, DM, HTN, HLD falls, hemorrhoidal bleeding, iron deficiency anemia who presented to [facility] with
shortness of breath, increased LE edema, and intermittent confusion. Ten days ago he had acute vision loss in his right eye and was seen at [facility] where he was diagnosed with spontaneous retinal hemorrhage secondary to Eliquis. Being worked up
for glaucoma. Eliquis was held for one week (pt kept on ASA 81 mg daily) and Eliquis resumed after one week hold at reduced dose of 2.5 mg twice a day. In addition, he was started on acetazolamide and Lasix and spironolactone were discontinued.
He gained 5 pounds with increased lower extremity edema. He called the cardiology office earlier this week and Lasix was resumed at 40 mg 3 x week with no improvement in symptoms and he therefore presented to [facility] ED on 05/25/2025. Also reports
intermittent confusion. Denies unilateral weakness, numbness/tingling, slurred speech, dysphagia, facial droop.
Progress Note - Radial Arm Saw Operator
Subjective
Date of Service: May 28, 2025:
84-year-old man with Watchman placement March 2025 admitted now with acute on chronic heart failure with mildly reduced EF and right retinal hemorrhage April 2025 with glaucoma, change in mental status
PMH/PSH: CAD, CABG 2002, pulmonary vein isolation for atrial fibrillation 2019, hemorrhoidal bleeding, watchman March 2025, heart failure with mildly reduced EF 40-45%, diabetes
Current medications: Acetazolamide 500 twice daily, apixaban 2.5 mg twice daily, atorvastatin 40 mg at bedtime, Alphagan, Cyclogyl, Claritin, Rocklatan and, prednisolone ophthalmic, iron ramipril on hold, carvedilol on hold, Trusopt, furosemide 40
mg IV twice daily, norepinephrine
95/62, pulse 60, respiratory 30, temp is 36.4, weight is 78.8 kg, which is up 1 kg, admission weight was 80.3 kg, weight April 20 was 76.6 kg, on BiPAP, diminished breath sounds in bases, aortic stenosis murmur is difficult to hear, neck veins
probably up, not much edema, on BiPAP,
ECG sinus rhythm, first-degree AV block, anterolateral IN, inferior IN, left axis
White count is 28.8, hemoglobin is 11.9, 39% bands, INR is 1.68, pH is 7.26, pCO2 is 50, PO2 is 112, pH was 7.17 at 130, PO2 was 67, bicarb is 22 sodium 129, potassium 3.9, BUN and creatinine are 46 and 1.6 creatinine had been 1.2 yesterday was 1.5
on admission, lactic acid is 1.1, potassium is 3.7, bicarb is 24 troponin 0.064, 4+ blood and urine, moderate bacteria
Objective
Labs:
05/28/25 01:33
05/28/25 06:00
Labs
Hgb 11.9 g/dL (13.0-18.0) L 05/28/25 01:33
Hct 35.4 % (39.0-52.0) L 05/28/25 01:33
Plt Count 286 10^3/uL (130-400) 05/28/25 01:33
PT 20.0 Sec (11.4-14.6) H 05/28/25 01:33
INR 1.68 05/28/25 01:33
Sodium Cancelled 05/28/25 06:00
Potassium Cancelled 05/28/25 06:00
BUN Cancelled 05/28/25 06:00
Creatinine Cancelled 05/28/25 06:00
Glucose Cancelled 05/28/25 06:00
Troponins
05/25/25 05/27/25 05/28/25
15:36 23:04 01:33
Troponin I 0.013 0.042 H* 0.064 H* D
Vital Signs and I&O:
Vital Signs
Temp Pulse Resp BP Pulse Ox
36.4 C 60 30 95/62 95
05/28/25 07:52 05/28/25 04:15 05/28/25 05:46 05/28/25 04:00 05/28/25 05:46
Vital Signs
Temp Pulse Resp BP Pulse Ox
36.4 C 60 30 95/62 95
05/28/25 07:52 05/28/25 04:15 05/28/25 05:46 05/28/25 04:00 05/28/25 05:46
Intake & Output
05/26/25 05/27/25 05/28/25 05/29/25
07:59 07:59 07:59 07:59
Intake Total 240 / 240 840 / 840 1110.0 / 1110.0
Output Total 400 / 400 1600 / 1600 1255 / 1255
Balance -160 / -160 -760 / -760 -145.0 / -145.0
Physical Exam
Physical Exam
See above
[2025-05-28] MEDS: ELIQUIS 2.5 MG PO ×2 (08:08→19:59)
[2025-05-28] MEDS: DIAMOX SR SEQUELS 500 MG PO (08:08)
[2025-05-28 08:16] LABS: Troponin I 0.106 ng/ml
--- NOTE | 2025-05-28 10:03 | PTCARENOTE ---
Rec'd pt at 0700. Pt drowsy/restless at times, attempted to climb OOB-bed alarm in place. Pt stated he 'needed to pee', pt informed that he has a santana, pt verbalized understanding but requires reinforcement. Monitor SR 1st degree AVB with PVC/PACs.
Levophed gtts at 16mcg/min, titrated down to 10mcg/min to keep MAP >65. Lungs dim right base, sct faint rales B/L. Rec'd pt on bipap, pt placed on 2LNC by resp therapist, pox 100%. Family at bedside, updated by multiple MD on condition/plan of care.
[2025-05-28] MEDS: ZOSYN 50 IV ×2 (11:18→17:00)
[2025-05-28] MEDS: THERAGRAN 1 TABLET PO (11:23)
[2025-05-28] MEDS: CLARITIN 10 MG PO (11:23)
--- NOTE | 2025-05-28 11:23 | PHA.VAN.IN ---
Assessment
- Assessment
Renal Function: SCR Appears Elevated from baseline (BASELINE SCR ~1.2)
Concomitant Antimicrobials: PIPERACILLIN/TAZOBACTAM
Plan
- Plan
Initial / Loading Dose: VANCO 1750MG X1
Monitoring: RANDOM 05/29 @0600
Pharmacokinetics Vancomycin I
- -
Patient Age: 84
Vancomycin Day #: 1
Indication: Skin And Soft Tissue
Requesting Provider: DR. SCOTT
Height / Weight:
Height 5 ft 7 in
Actual Weight 78.8 kg
- Vital Signs / Lab Results
Temp Pulse Resp BP Pulse Ox
97.9 F 68 22 99/70 100
05/28/25 11:13 05/28/25 10:00 05/28/25 10:00 05/28/25 10:00 05/28/25 10:00
Lab Results - Hematology
05/25/25 05/26/25 05/27/25
15:36 05:22 06:53
WBC 9.2 9.0 26.1 H
Band Neutrophils
05/28/25
01:33
WBC 28.8 H
Band Neutrophils 39 H
Lab Results - Chemistry
05/25/25 05/26/25 05/27/25
15:36 05:22 06:53
BUN 45 H 45 H 45 H
Creatinine 1.5 H 1.3 1.2
Estimated Creat Clear 39 42
Albumin 3.8 3.7 4.0
05/28/25 05/28/25
01:33 06:00
BUN 46 H Cancelled
Creatinine 1.6 H Cancelled
Estimated Creat Clear 32 Cancelled
Albumin 3.5
05/28/25
01:33
Lactic Acid 1.1
Lab Results - Urine
05/28/25
00:20
Urine Nitrite (Reflex) Negative
Leukocyte Esterase Rfl 1+ A
Urine WBC (Reflex) 6-10
Ur Squamous Epith Cells >30
Urine Bacteria (Reflex) Moderate A
Microbiology Results
05/28/25 09:29 Nasal Screen MRSA (PCR) - Final
Nose MRSA not detected - performed by PCR methodology.
[2025-05-28] MEDS: VANCOCIN 535 MG IV (11:51)
[2025-05-28 11:56] LABS: Glucose - Point of Care 157 mg/dl (70-99)
--- NOTE | 2025-05-28 14:04 | W.PN.HOSP.TC ---
Today's Communication/Plan
-
Initiate antibiotics
Follow-up cultures including blood, urine
Lower extremity ultrasound
Wean norepinephrine as tolerated, MAP goal greater than 65
Holding diuretics for today acknowledging elevated proBNP�most likely mixed picture of sepsis along with cardiogenic component
Holding nephrogenic agents
Assessment / Plan
Assessment / Plan
GEN: No distress, awake, Ox3
HEENT: supple, anicteric, mmm
LUNGS: decreased BS
CV: Reg, S1/S2, 1/6 syst LSB, no murmur
ABD: soft, BS+, NT/ND
EXT: 1+ LE edema, LEs cold
NEURO: Gross non-focal, 5/5 UE strength, speech clear
SKIN: No rash
#Shock, suspected Septic Shock v Cardiogenic
#Right lower extremity cellulitis
� Difficult picture with known heart failure along with severe aortic stenosis
� UA equivocal
- Maintain MAP greater than 65
� Wean norepinephrine as tolerated
� Initiate antibiotics, vancomycin, Zosyn
� Follow-up MRSA swab
� Lactate 1.1
� Follow-up cultures
� Follow-up lower extremity Dopplers
� Hold diuretics
#Acute hypercapnic respiratory failure
#Respiratory acidosis
� Improved
� Appears to be acute on chronic most likely with history of severe restrictive disease
�Continue NIV as long as BP tolerates at night
� Monitor gases
#Rising serum creatinine
� Unclear if prerenal in setting of cardiorenal/shock versus hypovolemia versus septic ATN
� Holding diuretics
� Monitor resuscitation
� Can consider IV fluids if needed, acknowledging heart failure and aortic stenosis
� Urine electrolytes if worsening
# Acute HFrEF exacerbation
- EF of 35 to 40%
- proBNP 25,000 from 11,000, increased although an CARLEEN
� 1 leg nonedematous, L leg edematous with erythema, suspected cellulitis
- Check I's and O's, daily weight
- Holding diuretics for today
-- echo with new Severe
- Holding ramipril due to hypotension
� Eventual restart of SGLT2 antagonist
� Hold Coreg dose given bradycardia first-degree AV block, hypertension
- Cardiology consulted
#Severe
-contributing factor in SOB
-Eventual work up for possible TAVR - defer to cards
�Holding diuresis for today
#Leukocytosis
-no obvious infectious source
-f/u cxr as SOB�appears to be improving
# Hyponatremia secondary to CHF
- Monitor with diuresis
# CARLEEN versus CKD
# Hyperkalemia secondary to lisinopril
� Probable cardiorenal
- Hold lisinopril
- Monitor with diuresis
CAD status post CABG
- Continue atorvastatin
Paroxysmal atrial fibrillation with Watchman
- Continue Coreg
- Continue Eliquis, patient now on reduced dose due to hemorrhage of right eye
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
- Continue acetazolamide, brimonidine
Type 2 diabetes
- Hold metformin
- Insulin sliding scale
Hyperlipidemia
- Continue statin
History of bleeding hemorrhoid
Full code
DVT prophylaxis�Eliquis
Cardiac diet
Total Critical Care Time 45 minutes. I was immediately available to the patient and staff. I personally examined, reviewed labs, diagnostic images/reports, interpretations, treatment plans, discussed patient care with other providers and family
or caregivers (if patient is unable to make decisions), entered orders as appropriate and documented the medical record.
Anticipated Discharge: > 48 hours
Subjective/Interval History
-
Date of Service: May 28, 2025
confused yesterday, now improved
required pressor support - slowly weaning
bipap overnight for acute hypercapnic respiratory failure
Objective Data
-
Labs:
Laboratory Results
05/28/25 05/28/25 05/28/25
01:33 04:35 06:00
HCO3 22.4
Sodium 129 L Cancelled
Potassium 3.9 Cancelled
Chloride 98 Cancelled
Carbon Dioxide 24 Cancelled
BUN 46 H Cancelled
Creatinine 1.6 H Cancelled
Glucose 189 H Cancelled
Calcium 8.8 Cancelled
Total Bilirubin 1.8 H
AST 23
ALT 25
Alkaline Phosphatase 65
Vital Signs:
Vital Signs
Temp Pulse Resp BP Pulse Ox
97.9 F 66 21 87/56 100
05/28/25 11:13 05/28/25 11:45 05/28/25 11:45 05/28/25 11:00 05/28/25 11:45
I&O
05/27/25 05/28/25 05/29/25
06:59 06:59 06:59
Intake Total 1080 / 1080 1050.0 / 1110.0 555.0 / 555.0
Output Total 1999 / 1999 1255 / 1305 670 / 670
Balance -920 / -920 -205.0 / -195.0 -115.0 / -115.0
Review of Systems
-
History Source: Patient
All other systems: Not reviewed unless documented
Physical Exam
-
General: Well Developed and No Apparent Distress
HEENT: Normocephalic, Atraumatic and Moist Mucous Membranes
Respiratory: Clear to Auscultation
Cardiac: Regular Rhythm and S1/S2; Negative Murmur, Rub or Gallop
GI: Soft, Nontender, Nondistended and Normal Bowel Sounds; Negative Organomegaly
Rectal: Deferred by Provider
Musculoskeletal: No Clubbing, No Cyanosis and No Edema (right lower extremity edema/erythema)
Skin: Negative Rash
Neuro: Awake, Alert, Oriented, AO x 3 and Nonfocal/Grossly Intact
Data Reviewed
-
Diagnostic Radiology: Report Reviewed by me
Labs: Labs Reviewed by me
[2025-05-28 16:42] LABS: Glucose - Point of Care 125 mg/dl (70-99)
[2025-05-28] MEDS: NOVOLOG FLEXPEN-MODERATE RESISTANCE SC (16:43)
--- NOTE | 2025-05-28 17:49 | PTCARENOTE ---
PICC line placed at bedside by VAT. Awaiting PCXR confirmation.
[2025-05-28] MEDS: DIAMOX 250 MG PO (19:58)
[2025-05-28] MEDS: MELATONIN 5 MG PO (21:51)
[2025-05-28] MEDS: LIPITOR 40 MG PO (21:51)
[2025-05-28 23:08] LABS: Glucose - Point of Care 129 mg/dl (70-99)
[2025-05-29] VITALS (8 sets, daily range): BP systolic 88–128; BP diastolic 36–82; PULSE 2–73; BMI 27.6
--- NOTE | 2025-05-29 | PTCARENOTE ---
sys reviewed, changes noted, lungs decr in bases, oriented to person/place, CHG bath done, linens changed
[2025-05-29] MEDS: NON-FORMULARY ITEM 1 DROP RIGHT EYE ×3 (00:03→21:52)
[2025-05-29] MEDS: ALPHAGAN 0.2% EYE DROPS 1 DROP RIGHT EYE ×4 (00:07→23:13)
[2025-05-29] MEDS: ZOSYN 50 IV ×5 (00:07→23:13)
[2025-05-29] MEDS: LEVOPHED 250 IV ×4 (02:09→19:36)
[2025-05-29 04:40] LABS: Hematocrit 33.7 % (39.0-52.0); Hemoglobin 11.2 g/dL (13.0-18.0); Mean Corp Hgb Conc. 33.2 g/dL (33.0-37.0); Mean Corpuscular Volume 98.5 fL (80.0-94.0); Platelet Count 236 10^3/uL (130-400); Red Cell Dist. Width 14.3 % (11.5-14.5)
[2025-05-29 05:02] LABS: ALT (SGPT) 24 U/L (0-50); AST (SGOT) 21 U/L (17-59); Albumin 3.0 g/dl (3.5-5.0); Alkaline Phosphatase 63 U/L (38-126); Blood Urea Nitrogen 44 mg/dl (9-20); Calcium 8.8 mg/dl (8.4-10.2); Carbon Dioxide 26 mmol/L (22-30); Chloride 100 mmol/L (98-107); Estimated Creatinine Clearance 32 ml/min; Glucose 147 mg/dl (70-99); Potassium 3.4 mmol/L (3.5-5.1); Sodium 131 mmol/L (135-145); Total Protein 5.3 g/dl (6.3-8.2); eGFR 41.96
[2025-05-29] MEDS: KCL 100 IV (05:29)
--- NOTE | 2025-05-29 07:16 | W.PN.INTV ---
Today's Communication / Plan
Recommendations
Weaning pressors, add PO midodrine
IV abx ongoing
BIPAP continued, likely to need set up as OP, follows at [facility]
Diet advancement
PT/OT as MS improves
Assessment
-
84-year-old male with previous history of CAD status post CABG, congestive heart failure, atrial fibrillation presenting to ER for shortness of breath over the past week. He was recently diagnosed with spontaneous retinal hemorrhage following
acute vision loss in the right eye, felt to be due to Eliquis which was decreased to 2.5 mg twice daily. He was recently changed on his outpatient diuretic management and gained 5 pounds with increased lower extremity edema. Adm to on 05/25 for
Acute HF. Overnight 05/27/25, he was notably hypotensive and placed on pressors, admitted to ICU.
Acute heart failure exacerbation
Acute hypercarbic respiratory failure on BiPAP
Leukocytosis
CARLEEN
Hyponatremia
Hyperglycemia
Elevated troponins
Septic shock on pressors
Urinary tract infection
Severe , severe PH on ECHO
Conditions present prior to admission
Restrictive lung disease, followed at [facility] by Dr. Veliz (Pul)
PFT 01/2025: FEV1 1.04 L 42%, FVC 1.53 L 46%, ratio 68-severe obstruction, TLC 3.03 43%, DLCO 33%-severe restriction, severe diffusion
Suspect due to combination of congestive heart failure and severe kyphosis
Insomnia
Atrial fibrillation s/p DCCV x 2/ablation
GERD
Chronic loculated left basilar pleural effusion on prior imaging
Atrial fibrillation
CHF
Diabetes
Peripheral edema
CAD s/p by-pass 2002
Cataracts bilateral
Plan
+current signs of metabolic encephalopathy -- improving
Denies pain at this time.
Pain/sedation: PRN
RASS goals: 0
Hemodynamically unstable, requiring pressors.
Requiring pressors: Levo @10, decreasing--add PO midodrine
Cardiac history reviewed--severe , HFrEF, severe PH noted
Prior ECHO reviewed
Hold home meds for hypotension
Monitor on telemetry
Oxygen needs: on low supplemental O2, not known to be on home O2
BIPAP overnight due to acute CO2 retention
Prior history of lung disease: severe RLD, noted from [facility] records, TLC 43%
He is certainly at risk for resp failure given his superimposed CHF -- I reviewed this with family
Supplemental O2 as indicated to maintain sats > 89%
CXR/CT reviewed indicating very low lung volumes
Diet advancement
Oil Lease Broker recommendations
Aspiration precautions, HOB > 30 degrees
Speech therapy eval can be considered if at elevated risk
GI prophylaxis if indicated
CARLEEN present, likely ATN
Void trials
Follow urine output, critical I/Os
Replete electrolytes as needed
Fever and increased WBC on presentation, suspect underlying UTI
Started on empiric antibiotics
Cultures sent/pending
Follow fever trend, WBC count
CBC stable, no signs of bleeding or coagulopathy.
DVT prophylaxis as assessed based on risk, including mechanical SCDs
Can transfuse if indicated for Hb <7, plt < 10
INR WNL
No prior h/o diabetes or thyroid disease
Monitor accuchecks PRN/SS coverage if needed
He remains full code, briefly discussed with family if patient has any advanced directives and states no. She notes they two of them have avoided all such discussions in the past and neither have any legal documentation of their wishes. I
have encouraged them to discuss this now.
Diagnostic Data
Chest X-Ray: 05/28/25- Continued improvement of aeration at the bilateral lung bases with mild residual bibasilar atelectasis and/or pneumonia. Poor overall lung volumes
CT Scan: CHEST 08/18/20-Essentially complete resolution of bilateral pneumonia. Resolution of left pleural effusion. No acute CT findings in the chest
Echo: 05/26/25-1. Normal left ventricular size and wall thickness with septal straightening and global hypokinesis with regional variability, EF 40%.
2. Thickened mitral leaflets, moderate eccentric mitral regurgitation, equivocal mitral valve prolapse in some views and dilated left atrium.
3. Severe aortic stenosis by 2D imaging, peak and mean gradients 41/25 mmHg, aortic valve area 0.9 cm 2, dimensionless index 0.2.
4. Moderately dilated and hypokinetic right ventricle, dilated right atrium, moderate tricuspid regurgitation and severe pulmonary hypertension, 73 mmHg systolic.
PFT's:
Reports and relevant images were personally reviewed.
Critical Care time 35 mins -- The patient is admitted for acute critical illness for the treatment of vital organ failure and/or prevention of further life-threatening conditions. Total care includes time spent in review of history, physical exam,
medications, hemodynamic/ventilator parameters, laboratory data, imaging and discussion with house staff, pharmacy, respiratory therapy, straightener gun parts, and nursing.
Subjective Dataa
Subjective Data
Date of Service:
Date of Service: May 29, 2025
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
Subjective:
no acute events, remains on pressors
no new complaints
Objective Data
Data Reviewed
Vital Signs / I&O / Oxygen:
Vital Signs
Temp Pulse Resp BP Pulse Ox
98 F 79 26 115/77 97
05/29/25 03:55 05/29/25 06:30 05/29/25 06:30 05/29/25 04:00 05/29/25 06:30
Intake and Output
05/28/25 05/29/25 05/30/25
06:59 06:59 06:59
Intake Total 1050.0 / 1110.0 1670.0 / 1670.0
Output Total 1255 / 1305 2420 / 2420
Balance -205.0 / -195.0 -750.0 / -750.0
SaO2 97
Nasal Cannula flow liters per 2
minute
Physical Exam
General: Comfortable and Other (NAD)
HEENT: Normocephalic, Anicteric and Moist Mucous Membranes
Cardiovascular: S1-S2 and Regular Rhythm
Respiratory: Clear and Non-Labored Respirations
GI: Soft, Non Distended and Non Tender
Neurology: Awake, Alert and No Motor Deficits
Skin: Warm and Dry
Labs/Micro/Reports
Lab Data
05/29/25 04:18
05/29/25 04:18
Microbiology
05/28/25 00:31 Blood/Venous Blood Culture - Preliminary
No Growth in 24 hours- Final report to follow
05/27/25 23:04 Blood/Venous Blood Culture - Preliminary
No Growth in 24 hours- Final report to follow
05/28/25 09:29 Nose Nasal Screen MRSA (PCR) - Final
MRSA not detected - performed by PCR methodology.
[2025-05-29] MEDS: DIAMOX 250 MG PO ×2 (07:52→19:37)
[2025-05-29] MEDS: ELIQUIS 2.5 MG PO ×2 (07:52→19:38)
[2025-05-29] MEDS: PRED FORTE 1% EYE DROPS 1 DROP RIGHT EYE ×4 (07:53→21:53)
[2025-05-29] MEDS: CYCLOGYL 1% EYE DROPS 1 DROP RIGHT EYE ×2 (07:53→19:38)
[2025-05-29] MEDS: NON-FORMULARY ITEM 1 UNIT RIGHT EYE ×2 (07:53→19:44)
[2025-05-29] MEDS: DESENEX/MITRAZOL/ZEASORB 1 APPLIC TOPICAL ×2 (07:53→19:50)
[2025-05-29 08:17] LABS: Glucose - Point of Care 163 mg/dl (70-99)
[2025-05-29] MEDS: NOVOLOG FLEXPEN-MODERATE RESISTANCE 1 UNITS SC ×2 (08:17→16:43)
--- NOTE | 2025-05-29 10:06 | PTCARENOTE ---
Rec'd pt at 0700. Pt alert and awake on bipap, mask removed by resp therapist. Monitor SR 1st degree AVB PVC/PACs. Levophed gtts titrated to keep MAP >65, infusing via AMOS PICC. Right radial a-line in place. Perez draining yellow urine. Perez/mouth
care completed. Family at bedside, updated.
[2025-05-29 11:41] LABS: Glucose - Point of Care 212 mg/dl (70-99)
[2025-05-29] MEDS: CLARITIN 10 MG PO (12:22)
[2025-05-29] MEDS: THERAGRAN 1 TABLET PO (12:22)
[2025-05-29] MEDS: NOVOLOG FLEXPEN-MODERATE RESISTANCE 3 UNITS SC (12:25)
--- NOTE | 2025-05-29 12:55 | W.PN.CARDCBS ---
Today's Communication / Plan
-
Wean Levophed as tolerated
Restart furosemide if okay with the team.
Eventual possible restart of carvedilol and possibly ramipril
Eventually will require TAVR eval
Impression / Plan
-
PCP: Bobbi Salvador MD
CDY: Ivan Amador MD
Impression:
Presented 05/25/2025 shortness of breath, edema, intermittent confusion
Acute respiratory failure on BiPAP with CO2 retention
Clinical sepsis, possibly pneumonia, possibly urosepsis
Acute on chronic heart failure with reduced ejection fraction, Pro BNP 11,400
Severe aortic stenosis
CARLEEN, creatinine 1.6
Hyponatremia
hyperkalemia on presentation, ramipril stopped
Vitreal hemorrhage R eye requiring one week hold of Eliquis and reduction in dose to 2.5 mg bid, with low vision bilaterally
Paroxysmal Atrial fibrillation
prior PVI 2019
post redo PVI and Watchman device implant 31mm 04/19/25
CAD/CABG 2002
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
Ambulatory dysfunction with frequent falls
NIDDM
Hyperlipidemia
h/o bleeding hemorrhoids
Echo 05/26/2025: EF 40%. Septal straightening and global hypokinesis with regional variability. Moderately dilated and hypokinetic RV, dilated RA. Dilated left atrium with moderate MR. Severe aortic stenosis with peak/mean gradient 41/25 mmHg and
DEVEN 0.9 cm�. Moderate TR with severe pulmonary hypertension 73 mmHg
MICHAEL 04/19/2025: Successful deployment of Watchman Flex Pro 31 mm device in left atrial appendage. Mild LOLLY device flow, mild to moderate MR, mild AI
Echo 10/21/2023: EF 35 to 40%, mild to moderate MR, mild , 14/9 mmHg, mild TR
Cardiac catheterization 12/07/2019: Patent ALDRICH to LAD, SVG to diagonal, and SVG to OM 2. Severe kake two-vessel CAD, moderate to severe LV dysfunction, RA 16, PA 58/24, PCWP 22
Plan:
Overall he looks improved and seems to be recovering from clinical sepsis/shock, although his volume status is worse as a result of need for resuscitation in that setting. Cultures thus far are negative.
He has CARLEEN but currently creatinine is stable, has plateaued and hopefully will drop.
Levophed is weaning.
He looks brighter
Heart rate adequate, ectopy but no A-fib
Will restart furosemide 40 mg IV twice daily
Will wean Levophed as possible, and eventually consider restart of low-dose carvedilol. Could consider restarting ramipril but this may be best held.
Continue to follow renal function weight, etc. At present his oxygenation is improved.
When recovered, we will need to evaluate for possible RON.
History of Present Illness 05/26/2025:
Sathish is an 84 year old male with PMH of paroxysmal afib s/p PVI 2019 and most recently redo PVI with Watchman 04/19/2025, CAD s/p CABG, chronic HFmrEF, CM, DM, HTN, HLD falls, hemorrhoidal bleeding, iron deficiency anemia who presented to [facility] with
shortness of breath, increased LE edema, and intermittent confusion. Ten days ago he had acute vision loss in his right eye and was seen at [facility] eye where he was diagnosed with spontaneous retinal hemorrhage secondary to Eliquis. Being worked up
for glaucoma. Eliquis was held for one week (pt kept on ASA 81 mg daily) and Eliquis resumed after one week hold at reduced dose of 2.5 mg twice a day. In addition, he was started on acetazolamide and Lasix and spironolactone were discontinued.
He gained 5 pounds with increased lower extremity edema. He called the cardiology office earlier this week and Lasix was resumed at 40 mg 3 x week with no improvement in symptoms and he therefore presented to [facility] ED on 05/25/2025. Also reports
intermittent confusion. Denies unilateral weakness, numbness/tingling, slurred speech, dysphagia, facial droop.
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
Subjective
Date of Service: May 29, 2025:
He feels better awake, no complaints.
Current medications: Norepinephrine, apixaban 2.5 mg twice daily, atorvastatin 40 mg a day, Alphagan, Cyclogyl, Claritin, melatonin, multivitamins, Rocklatan, iron, ramipril on hold, carvedilol on hold, Trusopt, furosemide 40 mg IV twice daily on
hold, Diamox 250 mg twice daily, Zosyn, midodrine 5 mg every 8
88/42, 115/77, pulse 66, respiratory rate 28, intake and output -650 mL, weight is 79.8 kg, up 1 kg, admission weight was 80.3 kg. Levophed currently at 12 mcg/min, he is feeling better, family at bedside, crackles in lung bases, neck veins are
somewhat elevated, surprisingly soft/barely audible murmur, erythema with edema of right lower extremity, left leg okay, abdomen benign he is awake, alert, now on nasal cannula
White count is 22.8, hemoglobin is 11.2, sodium is 131, potassium is 3.4, BUN and creatinine are 44 and 1.6, Cultures are negative to date proBNP yesterday was 25,600 previous to that 11,400
Allergies: Amiodarone
Objective
Labs:
05/29/25 04:18
05/29/25 04:18
Labs
Hgb 11.2 g/dL (13.0-18.0) L 05/29/25 04:18
Hct 33.7 % (39.0-52.0) L 05/29/25 04:18
Plt Count 236 10^3/uL (130-400) 05/29/25 04:18
PT 20.0 Sec (11.4-14.6) H 05/28/25 01:33
INR 1.68 05/28/25 01:33
Sodium 131 mmol/L (135-145) L 05/29/25 04:18
Potassium 3.4 mmol/L (3.5-5.1) L 05/29/25 04:18
BUN 44 mg/dl (9-20) H 05/29/25 04:18
Creatinine 1.6 mg/dL (0.7-1.3) H 05/29/25 04:18
Glucose 147 mg/dl (70-99) H 05/29/25 04:18
Troponins
05/27/25 05/28/25 05/28/25
23:04 01:33 07:36
Troponin I 0.042 H* 0.064 H* D 0.106 H* D
Vital Signs and I&O:
Vital Signs
Temp Pulse Resp BP Pulse Ox
36.5 C 66 28 90/36 100
05/29/25 11:17 05/29/25 12:30 05/29/25 12:30 05/29/25 08:00 05/29/25 12:30
Vital Signs
Temp Pulse Resp BP Pulse Ox
36.5 C 66 28 90/36 100
05/29/25 11:17 05/29/25 12:30 05/29/25 12:30 05/29/25 08:00 05/29/25 12:30
Intake & Output
05/27/25 05/28/25 05/29/25 05/30/25
07:59 07:59 07:59 07:59
Intake Total 840 / 840 1110.0 / 1155.0 1655.0 / 1692.5 438.9 / 438.9
Output Total 1600 / 1600 1305 / 1355 2445 / 2520 425 / 425
Balance -760 / -760 -195.0 / -200.0 -790.0 / -827.5 13.9 / 13.9
Physical Exam
Physical Exam
See above
[2025-05-29] MEDS: KCL 40 MEQ PO (14:04)
--- NOTE | 2025-05-29 14:16 | W.PN.HOSP.TC ---
Today's Communication/Plan
-
midodrine in attempt to wean norepinephrine
trial diuretics
abx
f/u cultures
monitor renal function
Assessment / Plan
Assessment / Plan
GEN: No distress, awake, Ox3
HEENT: supple, anicteric, mmm
LUNGS: decreased BS
CV: Reg, S1/S2, 1/6 syst LSB, no murmur
ABD: soft, BS+, NT/ND
EXT: 1+ LE edema, LEs cold
NEURO: Gross non-focal, 5/5 UE strength, speech clear
SKIN: No rash
#Shock, suspected Septic Shock v Cardiogenic
#Right lower extremity cellulitis
� Difficult picture with known heart failure along with severe aortic stenosis
� UA equivocal
- Maintain MAP greater than 65
� Wean norepinephrine as tolerated
� Add midodrine to wean off pressors
� Zosyn
� MRSA swab - negative
� Follow-up cultures
� lower extremity Dopplers - negative
� Edematous - can trial lasix
#Acute hypercapnic respiratory failure
#Respiratory acidosis
� Improved
� Appears to be acute on chronic most likely with history of severe restrictive disease although no previous noted
�Continue NIV as long as BP tolerates at night
� Monitor gases
#Rising serum creatinine
� Unclear if prerenal in setting of cardiorenal/shock versus hypovolemia versus septic ATN
� Monitor resuscitation
� Urine electrolytes if worsening
�Hold lisinopril
# Acute HFrEF exacerbation
- EF of 35 to 40%
- proBNP 25,000 from 11,000, increased although an CARLEEN
� Extremities edematous today
- Check I's and O's, daily weight
- Trialing diuretics
-- echo with new Severe
- Holding ramipril due to hypotension
� Eventual restart of SGLT2 antagonist
� Hold Coreg dose given bradycardia first-degree AV block, hypertension
- Cardiology consulted
#Elevated troponin
� Most likely nonischemic myocardial injury secondary to shock
� No chest pain
#Severe
-contributing factor in SOB
-Eventual work up for possible TAVR - defer to cards
�Holding diuresis for today
#Leukocytosis
-no obvious infectious source
-f/u cxr as SOB�appears to be improving
- improving on abx
# Hyponatremia
� Most likely SIADH
- Monitor with diuresis
#Hypokalemia
� Monitor and replete
CAD status post CABG
- Continue atorvastatin
Paroxysmal atrial fibrillation with Watchman
- Continue Coreg
- Continue Eliquis, patient now on reduced dose due to hemorrhage of right eye
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
- Continue acetazolamide, brimonidine
Type 2 diabetes
- Hold metformin
- Insulin sliding scale
Hyperlipidemia
- Continue statin
History of bleeding hemorrhoid
Full code
DVT prophylaxis�Eliquis
Cardiac diet
Total Critical Care Time 48 minutes. I was immediately available to the patient and staff. I personally examined, reviewed labs, diagnostic images/reports, interpretations, treatment plans, discussed patient care with other providers and family
or caregivers (if patient is unable to make decisions), entered orders as appropriate and documented the medical record.
Anticipated Discharge: > 48 hours
Subjective/Interval History
-
Date of Service: May 29, 2025
mental status appears to have improved
Objective Data
-
Labs:
Laboratory Results
05/29/25
04:18
WBC 22.8 H
Hgb 11.2 L
Hct 33.7 L
Plt Count 236
Sodium 131 L
Potassium 3.4 L
Chloride 100
Carbon Dioxide 26
BUN 44 H
Creatinine 1.6 H
Glucose 147 H
Calcium 8.8
Total Bilirubin 1.1
AST 21
ALT 24
Alkaline Phosphatase 63
Vital Signs:
Vital Signs
Temp Pulse Resp BP Pulse Ox
97.7 F 78 21 90/36 94
05/29/25 11:17 05/29/25 13:30 05/29/25 13:30 05/29/25 08:00 05/29/25 13:30
I&O
05/28/25 05/29/25 05/30/25
06:59 06:59 06:59
Intake Total 1050.0 / 1110.0 1670.0 / 1715.0 575.2 / 575.2
Output Total 1255 / 1305 2420 / 2495 530 / 530
Balance -205.0 / -195.0 -750.0 / -780.0 45.2 / 45.2
Review of Systems
-
History Source: Patient
All other systems: Not reviewed unless documented
Physical Exam
-
General: Well Developed and No Apparent Distress
HEENT: Normocephalic, Atraumatic and Moist Mucous Membranes
Respiratory: Clear to Auscultation
Cardiac: Regular Rhythm and S1/S2; Negative Murmur, Rub or Gallop
GI: Soft, Nontender, Nondistended and Normal Bowel Sounds; Negative Organomegaly
Rectal: Deferred by Provider
Musculoskeletal: No Clubbing, No Cyanosis and No Edema (right lower extremity edema/erythema)
Skin: Negative Rash
Neuro: Awake, Alert, Oriented, AO x 3 and Nonfocal/Grossly Intact
Data Reviewed
-
Diagnostic Radiology: Report Reviewed by me
Labs: Labs Reviewed by me
[2025-05-29] MEDS: LASIX 40 MG IV (15:35)
--- NOTE | 2025-05-29 16:20 | PTCARENOTE ---
Family at bedside throughout day. No changes in assessment. Lasix restarted at 1600 today per cards. SBP remained steady after dose given.
[2025-05-29 16:47] LABS: Glucose - Point of Care 169 mg/dl (70-99)
--- NOTE | 2025-05-29 20:00 | PTCARENOTE ---
Rec'd pt lethargic but arousable, blind R eye, oriented to person/place , needs reorientation to time, follows simple commands, SANTILLAN, 1' AV block, pac's, pvc's, levo gtt at 11mic- to titrate to keep MAP > 65, weak distal pulses, + edema, skin
warm/dry, O2 1 liters nc, lungs decr , fine crackles 1/4 up Left, NPC, sat 96, hypo bowel sounds, no bm, abd obese, soft, no n/v, santana draining yellow urine
[2025-05-29 21:35] LABS: Glucose - Point of Care 193 mg/dl (70-99)
[2025-05-29] MEDS: FEOSOL 325 MG PO (21:51)
[2025-05-29] MEDS: LIPITOR 40 MG PO (21:51)
[2025-05-29] MEDS: MELATONIN 5 MG PO (21:51)
--- NOTE | 2025-05-29 22:00 | PTCARENOTE ---
changed to bipap 10/5 w/ 2 liters by resp therapist
[2025-05-30] VITALS (12 sets, daily range): BP systolic 101–132; BP diastolic 48–78; PULSE 2–83; BMI 27.3
[2025-05-30] MEDS: LEVOPHED 250 IV ×2 (01:39→08:29)
[2025-05-30 03:31] LABS: Hematocrit 33.2 % (39.0-52.0); Hemoglobin 11.0 g/dL (13.0-18.0); Mean Corp Hgb Conc. 33.1 g/dL (33.0-37.0); Mean Corpuscular Volume 99.4 fL (80.0-94.0); Platelet Count 250 10^3/uL (130-400); Red Cell Dist. Width 14.6 % (11.5-14.5)
[2025-05-30 03:53] LABS: ALT (SGPT) 50 U/L (0-50); AST (SGOT) 43 U/L (17-59); Albumin 2.9 g/dl (3.5-5.0); Alkaline Phosphatase 76 U/L (38-126); Blood Urea Nitrogen 43 mg/dl (9-20); Calcium 9.3 mg/dl (8.4-10.2); Carbon Dioxide 27 mmol/L (22-30); Chloride 102 mmol/L (98-107); Estimated Creatinine Clearance 34 ml/min; Glucose 152 mg/dl (70-99); Potassium 3.6 mmol/L (3.5-5.1); Sodium 134 mmol/L (135-145); Total Protein 5.2 g/dl (6.3-8.2); eGFR 45.34
--- NOTE | 2025-05-30 04:09 | PTCARENOTE ---
sys reviewed, changes noted
[2025-05-30] MEDS: KCL 40 MEQ PO (05:20)
[2025-05-30] MEDS: ZOSYN 50 IV ×4 (05:20→23:02)
--- NOTE | 2025-05-30 05:25 | PTCARENOTE ---
40 kcl po given as ordered, off bipap, changed to 1 liter nc
--- NOTE | 2025-05-30 07:20 | W.PN.INTV ---
Today's Communication / Plan
Recommendations
Remains on levophed, slow progress on weans, will increase midodrine dosing
Remains on IV abx, wbc declining
OOB encouraged, PT eval
Diuresis continued per cards
Assessment
-
84-year-old male with previous history of CAD status post CABG, congestive heart failure, atrial fibrillation presenting to ER for shortness of breath over the past week. He was recently diagnosed with spontaneous retinal hemorrhage following
acute vision loss in the right eye, felt to be due to Eliquis which was decreased to 2.5 mg twice daily. He was recently changed on his outpatient diuretic management and gained 5 pounds with increased lower extremity edema. Adm to on 05/25 for
Acute HF. Overnight 05/27/25, he was notably hypotensive and placed on pressors, admitted to ICU.
Acute heart failure exacerbation
Acute hypercarbic respiratory failure on BiPAP
Leukocytosis
CARLEEN
Hyponatremia
Hyperglycemia
Elevated troponins
Septic shock on pressors
Urinary tract infection
Severe , severe PH on ECHO
Conditions present prior to admission
Restrictive lung disease, followed at [facility] by Dr. Veliz (Pul)
PFT 01/2025: FEV1 1.04 L 42%, FVC 1.53 L 46%, ratio 68-severe obstruction, TLC 3.03 43%, DLCO 33%-severe restriction, severe diffusion
Suspect due to combination of congestive heart failure and severe kyphosis
Insomnia
Atrial fibrillation s/p DCCV x 2/ablation
GERD
Chronic loculated left basilar pleural effusion on prior imaging
Atrial fibrillation
CHF
Diabetes
Peripheral edema
CAD s/p by-pass 2002
Cataracts bilateral
Plan
+current signs of metabolic encephalopathy -- improving
Denies pain at this time.
Pain/sedation: PRN
RASS goals: 0
Hemodynamically unstable, requiring pressors.
Requiring pressors: Levo @10, decreasing--increase PO midodrine
Cardiac history reviewed--severe , HFrEF, severe PH noted
Prior ECHO reviewed
Hold home meds for hypotension
Monitor on telemetry
Oxygen needs: on low supplemental O2, not known to be on home O2
BIPAP overnight due to acute CO2 retention
Prior history of lung disease: severe RLD, noted from [facility] records, TLC 43%
He is certainly at risk for resp failure given his superimposed CHF -- I reviewed this with family
Supplemental O2 as indicated to maintain sats > 89%
CXR/CT reviewed indicating very low lung volumes
Diet advancement
Night Time Babysitter recommendations
Aspiration precautions, HOB > 30 degrees
Speech therapy eval can be considered if at elevated risk
GI prophylaxis if indicated
CARLEEN present, likely ATN
Void trials
Follow urine output, critical I/Os
Replete electrolytes as needed
Fever and increased WBC on presentation, suspect underlying UTI
Started on empiric antibiotics
Cultures sent/pending
Follow fever trend, WBC count
CBC stable, no signs of bleeding or coagulopathy.
DVT prophylaxis as assessed based on risk, including mechanical SCDs
Can transfuse if indicated for Hb <7, plt < 10
INR WNL
No prior h/o diabetes or thyroid disease
Monitor accuchecks PRN/SS coverage if needed
PT/OT
He remains full code, briefly discussed with family if patient has any advanced directives and states no. She notes they two of them have avoided all such discussions in the past and neither have any legal documentation of their wishes. I
have encouraged them to discuss this now.
Diagnostic Data
Chest X-Ray: 05/28/25- Continued improvement of aeration at the bilateral lung bases with mild residual bibasilar atelectasis and/or pneumonia. Poor overall lung volumes
CT Scan: CHEST 08/18/20-Essentially complete resolution of bilateral pneumonia. Resolution of left pleural effusion. No acute CT findings in the chest
Echo: 05/26/25-1. Normal left ventricular size and wall thickness with septal straightening and global hypokinesis with regional variability, EF 40%.
2. Thickened mitral leaflets, moderate eccentric mitral regurgitation, equivocal mitral valve prolapse in some views and dilated left atrium.
3. Severe aortic stenosis by 2D imaging, peak and mean gradients 41/25 mmHg, aortic valve area 0.9 cm 2, dimensionless index 0.2.
4. Moderately dilated and hypokinetic right ventricle, dilated right atrium, moderate tricuspid regurgitation and severe pulmonary hypertension, 73 mmHg systolic.
PFT's:
Reports and relevant images were personally reviewed.
Critical Care time 31 mins -- The patient is admitted for acute critical illness for the treatment of vital organ failure and/or prevention of further life-threatening conditions. Total care includes time spent in review of history, physical exam,
medications, hemodynamic/ventilator parameters, laboratory data, imaging and discussion with house staff, pharmacy, respiratory therapy, filter cleaner, and nursing.
Subjective Dataa
Subjective Data
Date of Service:
Date of Service: May 30, 2025
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
Subjective:
no new events ON, remains on pressors
no new complaints
Objective Data
Data Reviewed
Vital Signs / I&O / Oxygen:
Vital Signs
Temp Pulse Resp BP Pulse Ox
98.1 F 74 29 104/59 100
05/30/25 04:00 05/30/25 06:30 05/30/25 06:30 05/30/25 04:00 05/30/25 06:30
Intake and Output
05/29/25 05/30/25 05/31/25
06:59 06:59 06:59
Intake Total 1670.0 / 1715.0 1779.5 / 1779.5
Output Total 2420 / 2495 2645 / 2645
Balance -750.0 / -780.0 -865.5 / -865.5
SaO2 100
Nasal Cannula flow liters per 1
minute
Physical Exam
General: Comfortable and Other (NAD)
HEENT: Normocephalic, Anicteric and Moist Mucous Membranes
Cardiovascular: S1-S2 and Regular Rhythm
Respiratory: Clear and Non-Labored Respirations
GI: Soft, Non Distended and Non Tender
Neurology: Awake, Alert and No Motor Deficits
Skin: Warm and Dry
Labs/Micro/Reports
Lab Data
05/30/25 03:03
05/30/25 03:03
Microbiology
05/28/25 00:31 Blood/Venous Blood Culture - Preliminary
No Growth in 48 hours- Final report to follow
05/27/25 23:04 Blood/Venous Blood Culture - Preliminary
No Growth in 48 hours- Final report to follow
05/28/25 00:20 Urine Urine Culture - Final
No Significant Growth
05/28/25 09:29 Nose Nasal Screen MRSA (PCR) - Final
MRSA not detected - performed by PCR methodology.
[2025-05-30 08:05] LABS: Glucose - Point of Care 157 mg/dl (70-99)
--- NOTE | 2025-05-30 08:12 | W.PN.CARDCBS ---
Today's Communication / Plan
-
IV diuresis, monitor intake/output, weights
Wean vasopressor
Antibiotic per primary service
Impression / Plan
-
PCP: Bobbi Salvador MD
CDY: Ivan Amador MD
Impression:
Presented 05/25/2025 shortness of breath, edema, intermittent confusion
Acute respiratory failure on BiPAP with CO2 retention
Clinical sepsis, possibly pneumonia, possibly urosepsis
Acute on chronic heart failure with reduced ejection fraction, Pro BNP 11,400
Severe aortic stenosis
CARLEEN, creatinine 1.6, improving 1.5 on 05/30/2025
Hyponatremia
hyperkalemia on presentation, ramipril stopped
Vitreal hemorrhage R eye requiring one week hold of Eliquis and reduction in dose to 2.5 mg bid, with low vision bilaterally
Paroxysmal Atrial fibrillation
prior PVI 2019
post redo PVI and Watchman device implant 31mm 04/19/25
CAD/CABG 2002
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
Ambulatory dysfunction with frequent falls
NIDDM
Hyperlipidemia
h/o bleeding hemorrhoids
Echo 05/26/2025: EF 40%. Septal straightening and global hypokinesis with regional variability. Moderately dilated and hypokinetic RV, dilated RA. Dilated left atrium with moderate MR. Severe aortic stenosis with peak/mean gradient 41/25 mmHg and
DEVEN 0.9 cm�. Moderate TR with severe pulmonary hypertension 73 mmHg
MICHAEL 04/19/2025: Successful deployment of Watchman Flex Pro 31 mm device in left atrial appendage. Mild LOLLY device flow, mild to moderate MR, mild AI
Echo 10/21/2023: EF 35 to 40%, mild to moderate MR, mild , 14/9 mmHg, mild TR
Cardiac catheterization 12/07/2019: Patent ALDRICH to LAD, SVG to diagonal, and SVG to OM 2. Severe [place] two-vessel CAD, moderate to severe LV dysfunction, RA 16, PA 58/24, PCWP 22
Plan:
Overall he looks improved and seems to be recovering from clinical sepsis/shock, although his volume status is worse as a result of need for resuscitation in that setting. Cultures thus far are negative.
He has CARLEEN but currently creatinine is stable, 1.6 now downtrending to 1.5.
Continue wean vasopressors as tolerated; once Levophed reduced, consider reintroduction of beta-mike. Monitor renal function overall, would continue to hold ACEi for now
IV furosemide 40 mg IV twice daily; roughly -800cc/24 h (05/30)
Continue to follow renal function weight, etc. At present his oxygenation is improved.
When recovered, we will need to evaluate for possible RON.
History of Present Illness 05/26/2025:
Sathish is an 84 year old male with PMH of paroxysmal afib s/p PVI 2019 and most recently redo PVI with Watchman 04/19/2025, CAD s/p CABG, chronic HFmrEF, CM, DM, HTN, HLD falls, hemorrhoidal bleeding, iron deficiency anemia who presented to [facility] with
shortness of breath, increased LE edema, and intermittent confusion. Ten days ago he had acute vision loss in his right eye and was seen at [facility] where he was diagnosed with spontaneous retinal hemorrhage secondary to Eliquis. Being worked up
for glaucoma. Eliquis was held for one week (pt kept on ASA 81 mg daily) and Eliquis resumed after one week hold at reduced dose of 2.5 mg twice a day. In addition, he was started on acetazolamide and Lasix and spironolactone were discontinued.
He gained 5 pounds with increased lower extremity edema. He called the cardiology office earlier this week and Lasix was resumed at 40 mg 3 x week with no improvement in symptoms and he therefore presented to [facility] ED on 05/25/2025. Also reports
intermittent confusion. Denies unilateral weakness, numbness/tingling, slurred speech, dysphagia, facial droop.
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
Subjective
Date of Service: May 30, 2025
Patient seen and examined this morning. No acute events overnight. Patient resting comfortably in bed. Patient denies any chest pain, palpitations, weakness. Notes mild shortness of breath. Remains afebrile. Telemetry shows sinus rhythm
PACs/PVCs.
Objective
Labs:
05/30/25 03:03
05/30/25 03:03
Labs
Hgb 11.0 g/dL (13.0-18.0) L 05/30/25 03:03
Hct 33.2 % (39.0-52.0) L 05/30/25 03:03
Plt Count 250 10^3/uL (130-400) 05/30/25 03:03
PT 20.0 Sec (11.4-14.6) H 05/28/25 01:33
INR 1.68 05/28/25 01:33
Sodium 134 mmol/L (135-145) L 05/30/25 03:03
Potassium 3.6 mmol/L (3.5-5.1) 05/30/25 03:03
BUN 43 mg/dl (9-20) H 05/30/25 03:03
Creatinine 1.5 mg/dL (0.7-1.3) H 05/30/25 03:03
Glucose 152 mg/dl (70-99) H 05/30/25 03:03
Troponins
05/27/25 05/28/25 05/28/25
23:04 01:33 07:36
Troponin I 0.042 H* 0.064 H* D 0.106 H* D
Vital Signs and I&O:
Vital Signs
Temp Pulse Resp BP Pulse Ox
98.1 F 74 29 104/59 100
05/30/25 04:00 05/30/25 06:30 05/30/25 06:30 05/30/25 04:00 05/30/25 06:30
Vital Signs
Temp Pulse Resp BP Pulse Ox
98.1 F 74 29 104/59 100
05/30/25 04:00 05/30/25 06:30 05/30/25 06:30 05/30/25 04:00 05/30/25 06:30
Intake & Output
05/28/25 05/29/25 05/30/25 05/31/25
06:59 06:59 06:59 06:59
Intake Total 1050.0 / 1110.0 1670.0 / 1715.0 1779.5 / 1779.5
Output Total 1255 / 1305 2420 / 2495 2645 / 2645
Balance -205.0 / -195.0 -750.0 / -780.0 -865.5 / -865.5
Physical Exam
Physical Exam
GENERAL: no acute distress
EYE: sclera anicteric
NECK: Supple, no appreciable JVD, no carotid bruit appreciated
ENT: normal nose, moist mucosal membranes
CARDIAC: Regular rate and rhythm, +S1/S2, no, rubs, or gallops; 2/6 systolic ejection murmur
CHEST/PULMONARY: Normal effort, bibasilar crackles
ABDOMEN: Soft, without focal tenderness or distention
NEUROLOGICAL: Alert and oriented x3
SKIN: Warm and dry, no rash
PSYCH: Normal and appropriate interaction.
[2025-05-30] MEDS: ALPHAGAN 0.2% EYE DROPS 1 DROP RIGHT EYE ×3 (08:52→23:05)
[2025-05-30] MEDS: ELIQUIS 2.5 MG PO ×2 (08:53→19:44)
[2025-05-30] MEDS: DIAMOX 250 MG PO ×2 (08:53→19:44)
[2025-05-30] MEDS: LASIX 40 MG IV ×2 (08:53→15:23)
[2025-05-30] MEDS: DESENEX/MITRAZOL/ZEASORB 1 APPLIC TOPICAL ×2 (08:54→21:57)
[2025-05-30] MEDS: CYCLOGYL 1% EYE DROPS 1 DROP RIGHT EYE ×2 (08:54→19:43)
[2025-05-30] MEDS: NON-FORMULARY ITEM 1 UNIT RIGHT EYE ×2 (08:56→19:48)
[2025-05-30] MEDS: PRED FORTE 1% EYE DROPS 1 DROP RIGHT EYE ×4 (08:56→21:58)
[2025-05-30] MEDS: NOVOLOG FLEXPEN-MODERATE RESISTANCE 1 UNITS SC (09:28)
--- NOTE | 2025-05-30 09:28 | W.PN.HOSP.TC ---
Today's Communication/Plan
-
.
Assessment / Plan
Assessment / Plan
Physical exam:
GEN: No distress, awake, chronically ill looking
HEENT: supple, anicteric, mmm
LUNGS: decreased BS with basal rales
CV: Reg, S1/S2, 1/6 syst LSB, no murmur
ABD: soft, BS+, NT/ND
EXT: 1+ LE edema, LEs cold
NEURO: oriented to self and surroundings, Gross non-focal, 5/5 UE strength, speech clear
Psych: calm
#Septic Shock POA
#Right lower extremity cellulitis
� Difficult picture with known heart failure along with severe aortic stenosis
� UA equivocal
- Maintain MAP greater than 65
� Wean norepinephrine as tolerated
� Add midodrine to wean off pressors
� Zosyn
� MRSA swab - negative
� Follow-up cultures
� lower extremity Doppler - negative
� Edematous -Lasix
#Acute hypercapnic respiratory failure
#Respiratory acidosis
� Improved
� Appears to be acute on chronic most likely with history of severe restrictive disease although no previous noted
�Continue NIV as long as BP tolerates at night
� Monitor gases
#CARLEEN
� Monitor resuscitation
� Urine electrolytes if worsening
�Hold lisinopril
# Acute HFrEF exacerbation
- EF of 35 to 40%
- proBNP 25,000 from 11,000, increased although an CARLEEN
� Extremities edematous
on IV Lasix
- Check I's and O's, daily weight
-- echo with new Severe
- Holding ramipril due to hypotension
� Eventual restart of SGLT2 antagonist
� Hold Coreg dose given bradycardia first-degree AV block, hypertension
- Cardiology consulted
#Elevated troponin
� nonischemic myocardial injury secondary to shock
� No chest pain
#Severe
-contributing factor in SOB
-Eventual work up for possible TAVR - defer to cards
# Hyponatremia
#Leukocytosis
-no obvious infectious source
-f/u cxr as SOB�appears to be improving
- improving on abx
# Hyponatremia
� Most likely SIADH
- Monitor with diuresis
#Hypokalemia
� Monitor and replete
CAD status post CABG
- Continue atorvastatin
Paroxysmal atrial fibrillation with Watchman
- Continue Coreg
- Continue Eliquis, patient now on reduced dose due to hemorrhage of right eye
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
- Continue acetazolamide, brimonidine
Type 2 diabetes
- Hold metformin
- Insulin sliding scale
Hyperlipidemia
- Continue statin
History of bleeding hemorrhoid
Full code
DVT prophylaxis�Eliquis
Cardiac diet
Total time spent to see the patient, examine the patient, review data and lab results, discuss treatment plan with patient, nursing staff around 55 minutes�
Anticipated Discharge: > 48 hours
Subjective/Interval History
-
Date of Service: May 30, 2025
No chest pain
No sob
No fevers
Objective Data
-
Labs:
Laboratory Results
05/30/25
03:03
WBC 20.3 H
Hgb 11.0 L
Hct 33.2 L
Plt Count 250
Sodium 134 L
Potassium 3.6
Chloride 102
Carbon Dioxide 27
BUN 43 H
Creatinine 1.5 H
Glucose 152 H
Calcium 9.3
Total Bilirubin 1.0
AST 43
ALT 50
Alkaline Phosphatase 76
Vital Signs:
Vital Signs
Temp Pulse Resp BP Pulse Ox
97.6 F 74 29 104/59 100
05/30/25 08:00 05/30/25 06:30 05/30/25 06:30 05/30/25 04:00 05/30/25 06:30
I&O
05/29/25 05/30/25 05/31/25
06:59 06:59 06:59
Intake Total 1670.0 / 1715.0 1779.5 / 1779.5
Output Total 2420 / 2495 2645 / 2645
Balance -750.0 / -780.0 -865.5 / -865.5
--- NOTE | 2025-05-30 11:20 | PTCARENOTE ---
Systems reviewed. Denies sob, cp/tightness/nausea. Weaning levo as tolerated.
[2025-05-30] MEDS: COLACE 100 MG PO ×2 (11:57→19:44)
[2025-05-30] MEDS: CLARITIN 10 MG PO (11:57)
[2025-05-30] MEDS: MIRALAX 17 GRAMS PO (11:57)
[2025-05-30] MEDS: THERAGRAN 1 TABLET PO (11:57)
[2025-05-30 12:16] LABS: Glucose - Point of Care 144 mg/dl (70-99)
[2025-05-30] MEDS: NOVOLOG FLEXPEN-MODERATE RESISTANCE SC ×2 (12:26→23:06)
--- NOTE | 2025-05-30 12:39 | PTOTSP ---
Speech Pathology
84M with admission for acute CHF exacerbation, AHRF, and septic shock. Speech therapy consulted re: pt c/o pill dysphagia.
Overall, pt presents with a mild oropharyngeal dysphagia, likely acute, characterized by mild to moderate oral residue with regular solids and intermittent coughing with pills when administered with thin liquids. Aspiration risk is increased 2/2
current concern for PNA; AMS; lethargy; and current need for feeding assistance. Patient/spouse deny dysphagia symptoms at baseline.
Recommend:
1. Continue with regular textures, thin liquids
2. Meds crushed vs whole in puree
3. Safe swallowing strategies partial assistance and supervision; intersperse liquids to assist with clearance of oral residue; ensure oral cavity is clear prior to next bite/sip
4. Aspiration precautions
5. Reflux precautions
6. VETERINARY EPIDEMIOLOGIST service to follow up re: to assess diet level tolerance and provide dysphagia tx at the acute care level
--- NOTE | 2025-05-30 15:22 | PTCARENOTE ---
Systems reviewed. Pt continues without complaint. Continue to wean levo as tolerated. Assisted pt with activity. Pt able to stand and side step with minimal assist except to guide lines/tubes. Continues with poor appetite. Refused lunch and
breakfast, but with increased 'nagging' pt ended up eating pudding and applesauce. Family at bedside. Visiting with pt t/o afternoon.
[2025-05-30] MEDS: NOVOLOG FLEXPEN-MODERATE RESISTANCE 3 UNITS SC (17:22)
[2025-05-30 17:32] LABS: Glucose - Point of Care 239 mg/dl (70-99)
--- NOTE | 2025-05-30 20:00 | PTCARENOTE ---
Rec'd pt drowsy, easily awakened, oriented to person & place, follows commands, bed alarm on, R eye blind, and son at bedside, SANTILLAN weakly, SR w/ 1' AV block, pac's, pvcs, runs afib, R rad blair w/ good wave form, flushes well, accurate to cuff,
to keep map > 65, levo at 2 arden- see flow sheet for titrations, weak distal pulses, + edema, skin warm/dry, RA, lungs decr, sat 96, enc to use IS- reaches 500ml, hypo bowel sounds, no bm, abd obese, soft, no n/v, took pilss in applesauce w/o
coughing, santana daining yellow urine; pt states he ' wishes to ', and son, spoken to & wish to change call status- will have OUTDOOR RECREATION SPECIALIST speak with family
--- NOTE | 2025-05-30 20:43 | W.PN.UPDATE ---
Update Note
Progress Note Update
Family requested after speaking as a family and to the patient to update code status to DNR/DNI. All questions answered and code status orders updated.
--- NOTE | 2025-05-30 21:00 | PTCARENOTE ---
DNR bracelet applied
[2025-05-30] MEDS: LIPITOR 40 MG PO (21:57)
[2025-05-30] MEDS: MELATONIN 5 MG PO (21:57)
[2025-05-30] MEDS: NON-FORMULARY ITEM 1 DROP RIGHT EYE (21:58)
--- NOTE | 2025-05-30 22:00 | PTCARENOTE ---
Placed on bipap 10/5 w/ 2 liters for the night
--- NOTE | 2025-05-30 23:00 | PTCARENOTE ---
tylenol 650mg po given for gen achiness
[2025-05-30] MEDS: TYLENOL 650 MG PO (23:01)
[2025-05-30 23:15] LABS: Glucose - Point of Care 141 mg/dl (70-99)
[2025-05-31] VITALS (12 sets, daily range): BP systolic 87–115; BP diastolic 52–85; PULSE 2–85; BMI 27.2
--- NOTE | 2025-05-31 | PTCARENOTE ---
sys reviewed, lungs decr, bibas crackles, CHG bath done, linens changed
[2025-05-31] MEDS: LEVOPHED 250 IV ×2 (00:53→15:36)
[2025-05-31 03:40] LABS: Hematocrit 34.6 % (39.0-52.0); Hemoglobin 11.4 g/dL (13.0-18.0); Mean Corp Hgb Conc. 32.9 g/dL (33.0-37.0); Mean Corpuscular Volume 97.5 fL (80.0-94.0); Platelet Count 260 10^3/uL (130-400); Red Cell Dist. Width 14.7 % (11.5-14.5)
[2025-05-31 04:03] LABS: ALT (SGPT) 70 U/L (0-50); AST (SGOT) 50 U/L (17-59); Albumin 2.9 g/dl (3.5-5.0); Alkaline Phosphatase 75 U/L (38-126); Blood Urea Nitrogen 40 mg/dl (9-20); Calcium 9.0 mg/dl (8.4-10.2); Carbon Dioxide 29 mmol/L (22-30); Chloride 101 mmol/L (98-107); Estimated Creatinine Clearance 34 ml/min; Glucose 138 mg/dl (70-99); Potassium 3.5 mmol/L (3.5-5.1); Sodium 136 mmol/L (135-145); Total Protein 5.3 g/dl (6.3-8.2); eGFR 45.34
--- NOTE | 2025-05-31 04:13 | PTCARENOTE ---
sys reviewed, changes noted
[2025-05-31] MEDS: NOVOLOG FLEXPEN-MODERATE RESISTANCE 1 UNITS SC (05:33)
[2025-05-31] MEDS: ZOSYN 50 IV ×3 (05:34→17:50)
--- NOTE | 2025-05-31 05:39 | PTCARENOTE ---
bipap off, on RA
[2025-05-31 05:43] LABS: Glucose - Point of Care 193 mg/dl (70-99)
[2025-05-31] MEDS: KCL 40 MEQ PO (06:35)
--- NOTE | 2025-05-31 06:36 | PTCARENOTE ---
440 kcl po given as ordwered
--- NOTE | 2025-05-31 07:32 | W.PN.INTV ---
Today's Communication / Plan
Recommendations
Diuresis as tolerated
Wean norepinephrine
Considering comfort care-will consult hospice
Assessment
-
84-year-old male with previous history of CAD status post CABG, congestive heart failure, atrial fibrillation presenting to ER for shortness of breath over the past week. He was recently diagnosed with spontaneous retinal hemorrhage following
acute vision loss in the right eye, felt to be due to Eliquis which was decreased to 2.5 mg twice daily. He was recently changed on his outpatient diuretic management and gained 5 pounds with increased lower extremity edema. Adm to on 05/25 for
Acute HF. Overnight 05/27/25, he was notably hypotensive and placed on pressors, admitted to ICU.
Acute heart failure exacerbation
Acute hypercarbic respiratory failure on BiPAP
Leukocytosis
CARLEEN
Hyponatremia
Hyperglycemia
Elevated troponins
Septic shock on pressors
Urinary tract infection
Severe , severe PH on ECHO
Conditions present prior to admission:
Restrictive lung disease, followed at [place] by Dr. Veliz (Pul)
PFT 01/2025: FEV1 1.04 L 42%, FVC 1.53 L 46%, ratio 68-severe obstruction, TLC 3.03 43%, DLCO 33%-severe restriction, severe diffusion
Suspect due to combination of congestive heart failure and severe kyphosis
Insomnia
Atrial fibrillation s/p DCCV x 2/ablation
GERD
Chronic loculated left basilar pleural effusion on prior imaging
Atrial fibrillation
CHF
Diabetes
Peripheral edema
CAD s/p by-pass 2002
Cataracts bilateral
Plan
Respiratory status relatively stable
Continue supplemental oxygen as needed
BiPAP if needed
Nebulizers if needed-currently not bronchospastic
Aspiration precautions
Diuresis as tolerated
Monitor renal function, electrolytes, intake/output, lower extremity edema and weight
Replace electrolytes as needed
Cardiology following-correspondence reviewed
Pressors as needed-currently on norepinephrine-attempt to wean
CARLEEN present, likely ATN
Void trials
Follow urine output, critical I/Os
Replete electrolytes as needed
Fever and increased WBC on presentation, suspect underlying UTI
Finite course of empiric antibiotics
Follow fever trend, WBC count
DVT prophylaxis
Nutrition
Early mobilization/PT/OT
Family discussions-patient now DNR
Dr. Calles spoke with patient and subsequently on multidisciplinary rounds on 05/31/2025-patient 'wants to ' and is leaning towards comfort and thus hospice will be consulted-not yet ready for withdrawal of supporting care
Critical care statement: A total of 50 minutes of critical care time was provided for this patient today. This includes management of unstable vital signs, evaluation of the patient at bedside, reviewing the patient�s pertinent medical records
including radiographs, pressor management, microbiology, laboratory evaluations, and��discussion with primary team, consultants, pharmacy, nutrition, physical therapy, case management, charge nurse, critical care nursing, and respiratory therapy.
Diagnostic Data
Chest X-Ray: 05/28/25- Continued improvement of aeration at the bilateral lung bases with mild residual bibasilar atelectasis and/or pneumonia. Poor overall lung volumes
CT Scan: CHEST 08/18/20-Essentially complete resolution of bilateral pneumonia. Resolution of left pleural effusion. No acute CT findings in the chest
Echo: 05/26/25-1. Normal left ventricular size and wall thickness with septal straightening and global hypokinesis with regional variability, EF 40%.
2. Thickened mitral leaflets, moderate eccentric mitral regurgitation, equivocal mitral valve prolapse in some views and dilated left atrium.
3. Severe aortic stenosis by 2D imaging, peak and mean gradients 41/25 mmHg, aortic valve area 0.9 cm 2, dimensionless index 0.2.
4. Moderately dilated and hypokinetic right ventricle, dilated right atrium, moderate tricuspid regurgitation and severe pulmonary hypertension, 73 mmHg systolic.
Reports and relevant images were personally reviewed.
Subjective Dataa
Subjective Data
Date of Service:
Date of Service: May 31, 2025
Chief Complaint: Train Electronic Technician Follow Up and Pulmonary Follow Up
Subjective:
'I wanted to ' complains of some shortness of breath, no chest pain or abdominal pain
Review of Systems
General: Other (Per HPI)
Objective Data
Data Reviewed
Vital Signs / I&O / Oxygen:
Vital Signs
Temp Pulse Resp BP Pulse Ox
97.4 F 73 29 106/52 91
05/31/25 04:00 05/31/25 07:00 05/31/25 07:00 05/31/25 04:00 05/31/25 07:00
Intake and Output
05/30/25 05/31/25 06/01/25
06:59 06:59 06:59
Intake Total 1779.5 / 1813.3 797.8 / 797.8
Output Total 2645 / 2695 2225 / 2225
Balance -865.5 / -881.7 -1427.2 / -1427.2
SaO2 91
Nasal Cannula flow liters per 1
minute
Physical Exam
General: Respiratory Distress (n), Comfortable and Other (NAD)
HEENT: Normocephalic, Anicteric and Moist Mucous Membranes
Cardiovascular: Regular Rhythm
Respiratory: Clear and Non-Labored Respirations
GI: Soft, Non Distended and Non Tender
Neurology: Awake, Alert and No Motor Deficits
Skin: Warm, Good Color, Cyanosis and Jaundice (n)
Labs/Micro/Reports
Lab Data
05/31/25 03:11
05/31/25 03:11
Microbiology
05/28/25 00:31 Blood/Venous Blood Culture - Preliminary
No Growth in 72 hours- Final report to follow
05/27/25 23:04 Blood/Venous Blood Culture - Preliminary
No Growth in 72 hours- Final report to follow
05/28/25 00:20 Urine Urine Culture - Final
No Significant Growth
05/28/25 09:29 Nose Nasal Screen MRSA (PCR) - Final
MRSA not detected - performed by PCR methodology.
[2025-05-31 07:49] LABS: Glucose - Point of Care 139 mg/dl (70-99)
[2025-05-31] MEDS: ALPHAGAN 0.2% EYE DROPS 1 DROP RIGHT EYE ×2 (08:55→15:36)
[2025-05-31] MEDS: NON-FORMULARY ITEM 1 UNIT RIGHT EYE ×2 (08:56→20:03)
[2025-05-31] MEDS: CYCLOGYL 1% EYE DROPS 1 DROP RIGHT EYE ×2 (08:56→20:03)
[2025-05-31] MEDS: PRED FORTE 1% EYE DROPS 1 DROP RIGHT EYE ×3 (08:56→21:37)
--- NOTE | 2025-05-31 09:11 | W.PN.HOSP.TC ---
Today's Communication/Plan
-
.
Assessment / Plan
Assessment / Plan
Physical exam:
GEN: No distress, awake, chronically ill looking
HEENT: supple, anicteric, mmm
LUNGS: decreased BS with basal rales
CV: Reg, S1/S2, 1/6 syst LSB, no murmur
ABD: soft, BS+, NT/ND
EXT: 1+ LE edema, LEs cold
NEURO: oriented to self and surroundings, Gross non-focal, 5/5 UE strength, speech clear
Psych: calm
#Septic Shock POA
#Right lower extremity cellulitis
Blood and urine culture are NGTD
- Empiric IV Zosyn for total of 5 days. Last day 06/01/25.
� MRSA swab - negative
� lower extremity Doppler - negative
- On Levophed and oral Midodrine
#Acute hypercapnic respiratory failure
#Respiratory acidosis
� Improved
� Appears to be acute on chronic most likely with history of severe restrictive disease although no previous noted
�Continue NIV as long as BP tolerates at night
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
Creatinine seems stable
# Acute HFrEF exacerbation
- EF of 35 to 40%
- proBNP 25,000 from 11,000, increased although an CARLEEN
� Extremities edematous
on IV Lasix
Weight is stable
-- echo with new Severe
- Holding ramipril due to hypotension
� Eventual restart of SGLT2 antagonist
� Hold Coreg dose given bradycardia first-degree AV block,
- Cardiology consulted
#Elevated troponin
� nonischemic myocardial injury secondary to shock
� No chest pain
#Severe
-contributing factor in SOB
-Eventual work up for possible TAVR -
#Leukocytosis
# Hyponatremia
#Hypokalemia
Replaced
CAD status post CABG
- Continue atorvastatin
Paroxysmal atrial fibrillation with Watchman
- Continue Coreg
- Continue Eliquis, patient now on reduced dose due to hemorrhage of right eye
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
- Continue acetazolamide, brimonidine
Type 2 diabetes
- Hold metformin
- Insulin sliding scale
Hyperlipidemia
- Continue statin
History of bleeding hemorrhoid
Code status changed to DNR
DVT prophylaxis�Eliquis
Cardiac diet
Total time spent to see the patient, examine the patient, review data and lab results, discuss treatment plan with patient, nursing staff around 55 minutes�
Anticipated Discharge: > 48 hours
Subjective/Interval History
-
Date of Service: May 31, 2025
Pt denies sob or chest pain
Objective Data
-
Labs:
Laboratory Results
05/31/25
03:11
WBC 18.0 H
Hgb 11.4 L
Hct 34.6 L
Plt Count 260
Sodium 136
Potassium 3.5
Chloride 101
Carbon Dioxide 29
BUN 40 H
Creatinine 1.5 H
Glucose 138 H
Calcium 9.0
Total Bilirubin 1.0
AST 50
ALT 70 H
Alkaline Phosphatase 75
Vital Signs:
Vital Signs
Temp Pulse Resp BP Pulse Ox
97.5 F 73 29 106/52 91
05/31/25 07:55 05/31/25 07:00 05/31/25 07:00 05/31/25 04:00 05/31/25 07:00
I&O
05/30/25 05/31/25 06/01/25
06:59 06:59 06:59
Intake Total 1779.5 / 1813.3 797.8 / 797.8
Output Total 2645 / 2695 2225 / 2225
Balance -865.5 / -881.7 -1427.2 / -1427.2
[2025-05-31] MEDS: ELIQUIS PO (09:41)
[2025-05-31] MEDS: COLACE PO (09:41)
[2025-05-31] MEDS: DESENEX/MITRAZOL/ZEASORB TOPICAL (09:41)
[2025-05-31] MEDS: LASIX IV (09:41)
[2025-05-31] MEDS: DIAMOX PO (09:41)
[2025-05-31] MEDS: LASIX 40 MG IV ×2 (10:56→15:36)
[2025-05-31] MEDS: DIAMOX 250 MG PO ×2 (10:57→20:01)
[2025-05-31] MEDS: ELIQUIS 2.5 MG PO ×2 (10:57→20:02)
[2025-05-31] MEDS: THERAGRAN PO (10:58)
[2025-05-31] MEDS: CLARITIN PO (10:58)
--- NOTE | 2025-05-31 11:06 | PN.CDI ---
Addendum entered and electronically signed by Henry Vyas MD 05/31/25 11:48:
urinary tract infection is not a valid diagnosis for this patient
Original Note:
CDI
- -
CDI:
Physician Documentation Request
Admit Date: 05/25/25 21:05
Dear Doctor Asael,
Patient admitted with heart failure exacerbation.
05/28 dam worker was consulted for sepsis. The consultation and progress notes include a diagnosis of urinary tract infection.
Urine culture was negative.
UA results from 05/28
05/28/25
00:20
Urine Color Yellow
Urine Clarity Clear
Ur Occult Blood Reflex 4+ A
Urine Nitrite (Reflex) Negative
Leukocyte Esterase Rfl 1+ A
Urine WBC (Reflex) 6-10
Urine Bacteria (Reflex) Moderate A
Please indicate in your progress notes if you are in agreement that the above diagnosis is valid for this patient:
____ - urinary tract infection is a valid diagnosis (Please include it in your progress notes)
____ - urinary tract infection is not a valid diagnosis for this patient
____ - Other
Use of terms such as suspected, likely, concern for, or probable are acceptable for a diagnosis that is being evaluated, monitored or treated as if it exists and can be coded in the inpatient setting, when documented at the time of discharge.
Thank you,
Anabella Shaffer RN, BSN
CDI Specialist
tiger text
Please use your independent medical judgment in providing your response.
--- NOTE | 2025-05-31 11:34 | W.PN.CARDCBS ---
Today's Communication / Plan
-
Continue IV Lasix
Remains on pressors for hypotension
Continue to hold lisinopril
Family is considering comfort care
Impression / Plan
-
PCP: Bobbi Salvador MD
CDY: Ivan Amador MD
Impression:
Presented 05/25/2025 shortness of breath, edema, intermittent confusion
Acute respiratory failure on BiPAP with CO2 retention
Clinical sepsis, possibly pneumonia, possibly urosepsis
Acute on chronic heart failure with reduced ejection fraction, Pro BNP 11,400
Severe aortic stenosis
CARLEEN, creatinine 1.6, improving 1.5 on 05/30/2025
Hyponatremia
hyperkalemia on presentation, ramipril stopped
Vitreal hemorrhage R eye requiring one week hold of Eliquis and reduction in dose to 2.5 mg bid, with low vision bilaterally
Paroxysmal Atrial fibrillation
prior PVI 2019
post redo PVI and Watchman device implant 31mm 04/19/25
CAD/CABG 2002
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
Ambulatory dysfunction with frequent falls
NIDDM
Hyperlipidemia
h/o bleeding hemorrhoids
DNR
Echo 05/26/2025: EF 40%. Septal straightening and global hypokinesis with regional variability. Moderately dilated and hypokinetic RV, dilated RA. Dilated left atrium with moderate MR. Severe aortic stenosis with peak/mean gradient 41/25 mmHg and
DEVEN 0.9 cm�. Moderate TR with severe pulmonary hypertension 73 mmHg
MICHAEL 04/19/2025: Successful deployment of Watchman Flex Pro 31 mm device in left atrial appendage. Mild LOLLY device flow, mild to moderate MR, mild AI
Echo 10/21/2023: EF 35 to 40%, mild to moderate MR, mild , 14/9 mmHg, mild TR
Cardiac catheterization 12/07/2019: Patent ALDRICH to LAD, SVG to diagonal, and SVG to OM 2. Severe [place] two-vessel CAD, moderate to severe LV dysfunction, RA 16, PA 58/24, PCWP 22
Plan:
Volume status is difficult to ascertain but will continue IV Lasix with stable renal function with creatinine of 1.5
He remains on Levophed with dose increasing. Continue to hold lisinopril
He is now DNR
Family is considering comfort care and not likely a candidate for aortic valve intervention
Discussed with nursing
History of Present Illness 05/26/2025:
Sathish is an 84 year old male with PMH of paroxysmal afib s/p PVI 2019 and most recently redo PVI with Watchman 04/19/2025, CAD s/p CABG, chronic HFmrEF, CM, DM, HTN, HLD falls, hemorrhoidal bleeding, iron deficiency anemia who presented to [facility] with
shortness of breath, increased LE edema, and intermittent confusion. Ten days ago he had acute vision loss in his right eye and was seen at [facility] where he was diagnosed with spontaneous retinal hemorrhage secondary to Eliquis. Being worked up
for glaucoma. Eliquis was held for one week (pt kept on ASA 81 mg daily) and Eliquis resumed after one week hold at reduced dose of 2.5 mg twice a day. In addition, he was started on acetazolamide and Lasix and spironolactone were discontinued.
He gained 5 pounds with increased lower extremity edema. He called the cardiology office earlier this week and Lasix was resumed at 40 mg 3 x week with no improvement in symptoms and he therefore presented to [facility] ED on 05/25/2025. Also reports
intermittent confusion. Denies unilateral weakness, numbness/tingling, slurred speech, dysphagia, facial droop.
Progress Note - Drill Hand
Subjective
Date of Service: May 31, 2025
No chest pain or shortness of breath
Objective
Labs:
05/31/25 03:11
05/31/25 03:11
Labs
Hgb 11.4 g/dL (13.0-18.0) L 05/31/25 03:11
Hct 34.6 % (39.0-52.0) L 05/31/25 03:11
Plt Count 260 10^3/uL (130-400) 05/31/25 03:11
PT 20.0 Sec (11.4-14.6) H 05/28/25 01:33
INR 1.68 05/28/25 01:33
Sodium 136 mmol/L (135-145) 05/31/25 03:11
Potassium 3.5 mmol/L (3.5-5.1) 05/31/25 03:11
BUN 40 mg/dl (9-20) H 05/31/25 03:11
Creatinine 1.5 mg/dL (0.7-1.3) H 05/31/25 03:11
Glucose 138 mg/dl (70-99) H 05/31/25 03:11
Vital Signs and I&O:
Vital Signs
Temp Pulse Resp BP Pulse Ox
97.5 F 96 32 111 94
05/31/25 07:55 05/31/25 11:30 05/31/25 11:30 05/31/25 08:00 05/31/25 11:30
Vital Signs
Temp Pulse Resp BP Pulse Ox
97.5 F 96 32 111 94
05/31/25 07:55 05/31/25 11:30 05/31/25 11:30 05/31/25 08:00 05/31/25 11:30
Intake & Output
05/29/25 05/30/25 05/31/25 06/01/25
06:59 06:59 06:59 06:59
Intake Total 1670.0 / 1715.0 1779.5 / 1813.3 797.8 / 797.8
Output Total 2420 / 2495 2645 / 2695 2225 / 2225
Balance -750.0 / -780.0 -865.5 / -881.7 -1427.2 / -1427.2
Physical Exam
Physical Exam
General: Well developed, well nourished in NAD.
Neck: Supple, no JVD, HJR, carotids +2 B/L, no bruits bilaterally.
Heart: Non displaced PMI, RRR, no murmurs, No S3, S4, no rubs.
Lungs: Scattered rhonchi
Extremities: No clubbing, cyanosis or edema bilaterally.
Neuro: Grossly nonfocal, awake, alert and oriented x3.
--- NOTE | 2025-05-31 12:10 | HOSPNOTE ---
Met with patient and spouse. The patient and spouse wanted information only about hospice and the philosophy. I will continue to be available if they would like to discuss further or have additional questions.
[2025-05-31] MEDS: NOVOLOG FLEXPEN-MODERATE RESISTANCE SC ×2 (12:54→18:29)
[2025-05-31 12:58] LABS: Glucose - Point of Care 140 mg/dl (70-99)
--- NOTE | 2025-05-31 13:10 | PTCARENOTE ---
Addendum entered by Radha Gaona RN 05/31/25 13:49:
once back in bed, pt with mildly increased work of breathing and sats 90-91% on room air. Pt refused bipap but wanted nasal cannula when offered. 2lnc placed and sats quickly improved to high 90s
Original Note:
Systems reviewed. Pt has been weaned off levo as charted. Pt expressed need to have bm. Was incontinent in chair, but had more results on bedpan. Still refusing to eat. Once cleaned up and repositioned for comfort, pt fell asleep
--- NOTE | 2025-05-31 13:39 | PTCARENOTE ---
once asleep, bp dropped requiring restart of Levophed
--- NOTE | 2025-05-31 15:56 | W.PN.UPDATE ---
Update Note
Progress Note Update
I stop by the patient's room and offered my support and sympathies for all of the recent medical illnesses for Sathish. Appreciate all of the excellent care by the multiple disciplinary team. Reconfirmed with and daughter that he is DNR/DNI and
they are having ongoing discussions regarding goals of future care. I did take time to answer all questions of patient's daughter and spouse at the bedside. Provided empathy to Sathish and he was resting comfortably. He did tell me that he is
comfortable.
--- NOTE | 2025-05-31 16:08 | CM ---
Pressors, IV/Lasix. Family considering comfort care. Possible hospice consult per [facility]. Discharge POC: Therapy recommending SNF. Will await family GOC before suppling list.
--- NOTE | 2025-05-31 16:12 | CM ---
Pressors, IV/Lasix. Family considering comfort care. Hospice consult completed. Discharge POC: Therapy recommending SNF. Will await family GOC before suppling list.
--- NOTE | 2025-05-31 16:23 | PTCARENOTE ---
Systems reviewed. No new changes. Family maintaining [place]. Extended family coming in for visits. Pt sleeping most of shift after oob to chair. Still refusing to eat. Did eat a few ice chips.
[2025-05-31] MEDS: PRED FORTE 1% EYE DROPS RIGHT EYE (17:50)
[2025-05-31 18:34] LABS: Glucose - Point of Care 137 mg/dl (70-99)
[2025-05-31] MEDS: COLACE 100 MG PO (20:02)
[2025-05-31] MEDS: DESENEX/MITRAZOL/ZEASORB 1 APPLIC TOPICAL (20:04)
--- NOTE | 2025-05-31 20:33 | PTCARENOTE ---
Received pt from previous RN. Pt is AAOx2 (time), confused/forgetful, drowsy, flat, slow speech, tremors. Afib w/ PVCs on the monitor. Levo gtt at 2 mcgs, goal MAP >65, titrated per protocol (see worklist). Pt on 2L NC O2 sat 100%, bipap HS 10/ @
2L, lungs diminished. Pt incont of stool. Perez in place, hygiene provided. Right radial blair zeroed and transduced. CHG bath and mouth care provided. Bed alarm in place. Family at bedside. Safe environment maintained.
[2025-05-31] MEDS: NON-FORMULARY ITEM 1 DROP RIGHT EYE (21:37)
[2025-05-31] MEDS: NSS (PRESERVATIVE FREE) 8 ML IV (21:38)
[2025-05-31] MEDS: PEPCID 20 MG IV (21:38)
[2025-05-31] MEDS: LIPITOR 40 MG PO (21:39)
[2025-05-31] MEDS: FEOSOL 325 MG PO (21:39)
[2025-05-31] MEDS: MELATONIN 5 MG PO (21:39)
[2025-06-01] VITALS (18 sets, daily range): BP systolic 76–126; BP diastolic 47–83; PULSE 2–100; O2SAT 93–100; BMI 26.5
[2025-06-01] MEDS: ZOSYN 50 IV ×2 (00:11→05:02)
[2025-06-01] MEDS: NOVOLOG FLEXPEN-MODERATE RESISTANCE SC ×3 (00:11→12:36)
[2025-06-01] MEDS: ALPHAGAN 0.2% EYE DROPS 1 DROP RIGHT EYE ×3 (00:11→16:15)
[2025-06-01 00:21] LABS: Glucose - Point of Care 136 mg/dl (70-99)
--- NOTE | 2025-06-01 00:23 | PTCARENOTE ---
Systems reviewed, no new changes in assessment. Pt on bipap 10/5 at 2L, O2 sat 100%. Safe environment maintained.
--- NOTE | 2025-06-01 03:46 | PTCARENOTE ---
Systems reviewed, no new changes in assessment. AM labs provided. Pt off bipap placed back on 2L NC. Safe environment maintained.
[2025-06-01 04:00] LABS: Hematocrit 35.5 % (39.0-52.0); Hemoglobin 11.5 g/dL (13.0-18.0); Mean Corp Hgb Conc. 32.4 g/dL (33.0-37.0); Mean Corpuscular Volume 98.6 fL (80.0-94.0); Platelet Count 239 10^3/uL (130-400); Red Cell Dist. Width 14.7 % (11.5-14.5)
[2025-06-01 04:27] LABS: Blood Urea Nitrogen 38 mg/dl (9-20); Calcium 8.9 mg/dl (8.4-10.2); Carbon Dioxide 29 mmol/L (22-30); Chloride 104 mmol/L (98-107); Estimated Creatinine Clearance 36 ml/min; Glucose 133 mg/dl (70-99); Potassium 3.3 mmol/L (3.5-5.1); Sodium 138 mmol/L (135-145); eGFR 49.25
[2025-06-01] MEDS: KCL 40 MEQ PO (05:02)
[2025-06-01 05:14] LABS: Glucose - Point of Care 131 mg/dl (70-99)
[2025-06-01] MEDS: DIAMOX 250 MG PO (07:45)
[2025-06-01] MEDS: COLACE 100 MG PO (07:45)
[2025-06-01] MEDS: LASIX 40 MG IV ×2 (07:46→16:14)
[2025-06-01] MEDS: ELIQUIS 2.5 MG PO ×2 (07:46→20:30)
[2025-06-01] MEDS: NON-FORMULARY ITEM 1 UNIT RIGHT EYE ×2 (07:48→20:30)
[2025-06-01] MEDS: PRED FORTE 1% EYE DROPS 1 DROP RIGHT EYE ×4 (07:48→23:04)
[2025-06-01] MEDS: CYCLOGYL 1% EYE DROPS 1 DROP RIGHT EYE ×2 (07:48→20:31)
--- NOTE | 2025-06-01 07:48 | W.PN.INTV ---
Today's Communication / Plan
Recommendations
Continue diuresis
Wean pressors
Increase activity
Comfort a priority-hospice evaluated patient-patient not quite ready yet for hospice
If able to be weaned off pressors then could be transferred out of ICU-call pulmonary if respiratory issues arise
Assessment
-
84-year-old male with previous history of CAD status post CABG, congestive heart failure, atrial fibrillation presenting to ER for shortness of breath over the past week. He was recently diagnosed with spontaneous retinal hemorrhage following
acute vision loss in the right eye, felt to be due to Eliquis which was decreased to 2.5 mg twice daily. He was recently changed on his outpatient diuretic management and gained 5 pounds with increased lower extremity edema. Adm to on 05/25 for
Acute HF. Overnight 05/27/25, he was notably hypotensive and placed on pressors, admitted to ICU.
Acute heart failure exacerbation
Acute hypercarbic respiratory failure on BiPAP
Leukocytosis
CARLEEN
Hyponatremia
Hyperglycemia
Elevated troponins
Septic shock on pressors
Urinary tract infection
Severe , severe PH on ECHO
Conditions present prior to admission:
Restrictive lung disease, followed at [facility] by Dr. Veliz (Pul)
PFT 01/2025: FEV1 1.04 L 42%, FVC 1.53 L 46%, ratio 68-severe obstruction, TLC 3.03 43%, DLCO 33%-severe restriction, severe diffusion
Suspect due to combination of congestive heart failure and severe kyphosis
Insomnia
Atrial fibrillation s/p DCCV x 2/ablation
GERD
Chronic loculated left basilar pleural effusion on prior imaging
Atrial fibrillation
CHF
Diabetes
Peripheral edema
CAD s/p by-pass 2002
Cataracts bilateral
Plan
Respiratory status slowly improving with diuresis
Continue supplemental oxygen as needed-92% on room air
BiPAP if needed
Nebulizers if needed-currently not bronchospastic
Aspiration precautions
Diuresis continues as tolerated--4 L last 3 days
Monitor renal function, electrolytes, intake/output, lower extremity edema and weight
Replace electrolytes as needed
Cardiology following-correspondence reviewed
Pressors as needed-currently on norepinephrine-attempt to wean
CARLEEN present, likely ATN-stable
Void trials
Follow urine output, critical I/Os
Replete electrolytes as needed
Fever and increased WBC on presentation, suspect underlying UTI
Finite course of empiric antibiotics
Follow fever trend, WBC count
DVT prophylaxis-on Eliquis
Nutrition
Early mobilization/PT/OT
Comfort a priority-hospice discussions ongoing-patient 'not ready yet'
Family discussions-patient now DNR
Dr. Calles spoke with patient and subsequently on multidisciplinary rounds on 05/31/2025-patient 'wants to ' and is leaning towards comfort and thus hospice will be consulted-not yet ready for withdrawal of supporting care
Critical care statement: A total of 50 minutes of critical care time was provided for this patient today. This includes management of unstable vital signs, evaluation of the patient at bedside, reviewing the patient�s pertinent medical records
including radiographs, pressor management, microbiology, laboratory evaluations, and��discussion with primary team, consultants, pharmacy, nutrition, physical therapy, case management, charge nurse, critical care nursing, and respiratory therapy.
Diagnostic Data
Chest X-Ray: 05/28/25- Continued improvement of aeration at the bilateral lung bases with mild residual bibasilar atelectasis and/or pneumonia. Poor overall lung volumes
CT Scan: CHEST 08/18/20-Essentially complete resolution of bilateral pneumonia. Resolution of left pleural effusion. No acute CT findings in the chest
Echo: 05/26/25-1. Normal left ventricular size and wall thickness with septal straightening and global hypokinesis with regional variability, EF 40%.
2. Thickened mitral leaflets, moderate eccentric mitral regurgitation, equivocal mitral valve prolapse in some views and dilated left atrium.
3. Severe aortic stenosis by 2D imaging, peak and mean gradients 41/25 mmHg, aortic valve area 0.9 cm 2, dimensionless index 0.2.
4. Moderately dilated and hypokinetic right ventricle, dilated right atrium, moderate tricuspid regurgitation and severe pulmonary hypertension, 73 mmHg systolic.
Reports and relevant images were personally reviewed.
Subjective Dataa
Subjective Data
Date of Service:
Date of Service: June 01, 2025
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
Subjective:
Feels a little better, still very weak, no appetite, no shortness of breath, chest pain or abdominal pain
Review of Systems
General: Other (Per HPI)
Objective Data
Data Reviewed
Vital Signs / I&O / Oxygen:
Vital Signs
Temp Pulse Resp BP Pulse Ox
97.4 F 90 23 76/55 99
06/01/25 07:40 06/01/25 07:00 06/01/25 07:00 06/01/25 05:54 06/01/25 07:44
Intake and Output
05/31/25 06/01/25 06/02/25
06:59 06:59 06:59
Intake Total 797.8 / 820.3 387.5 / 391.3 3.8 / 3.8
Output Total 2225 / 2275 1645 / 1680 35 / 35
Balance -1427.2 / -1454.7 -1257.5 / -1288.7 -31.2 / -31.2
SaO2 99
Nasal Cannula flow liters per 2
minute
Physical Exam
General: Respiratory Distress (n), Comfortable and Other (NAD)
HEENT: Normocephalic, Anicteric and Moist Mucous Membranes
Cardiovascular: Regular Rhythm
Respiratory: Clear and Non-Labored Respirations
GI: Soft, Non Distended and Non Tender
Neurology: Awake, Alert and No Motor Deficits
Skin: Warm, Good Color, Cyanosis and Jaundice (n)
Labs/Micro/Reports
Lab Data
06/01/25 03:38
06/01/25 03:38
Microbiology
05/28/25 00:31 Blood/Venous Blood Culture - Preliminary
No Growth in 4 days- Final report to follow
05/27/25 23:04 Blood/Venous Blood Culture - Preliminary
No Growth in 4 days- Final report to follow
05/28/25 00:20 Urine Urine Culture - Final
No Significant Growth
[2025-06-01] MEDS: DESENEX/MITRAZOL/ZEASORB 1 APPLIC TOPICAL ×2 (07:49→20:32)
--- NOTE | 2025-06-01 09:01 | W.PN.CARDCBS ---
Today's Communication / Plan
-
Continue IV Lasix and follow renal function
Levophed weaned off, monitor blood pressure on midodrine
Continue to hold GDMT for HFrEF due to marginal blood pressure
Impression / Plan
-
PCP: Bobbi Salvador MD
CDY: Ivan Amador MD
Impression:
Presented 05/25/2025 shortness of breath, edema, intermittent confusion
Shock - presumed septic shock
Acute respiratory failure on BiPAP with CO2 retention
Acute on chronic heart failure with reduced ejection fraction, Pro BNP 11,400
Severe aortic stenosis
CARLEEN, creatinine 1.6, improving 1.5 on 05/30/2025
Hyponatremia
hyperkalemia on presentation, ramipril stopped
Vitreal hemorrhage R eye requiring one week hold of Eliquis and reduction in dose to 2.5 mg bid, with low vision bilaterally
Paroxysmal Atrial fibrillation
prior PVI 2019
post redo PVI and Watchman device implant 31mm 04/19/25
CAD/CABG 2002
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
Ambulatory dysfunction with frequent falls
NIDDM
Hyperlipidemia
h/o bleeding hemorrhoids
DNR
Echo 05/26/2025: EF 40%. Septal straightening and global hypokinesis with regional variability. Moderately dilated and hypokinetic RV, dilated RA. Dilated left atrium with moderate MR. Severe aortic stenosis with peak/mean gradient 41/25 mmHg and
DEVEN 0.9 cm�. Moderate TR with severe pulmonary hypertension 73 mmHg
MICHAEL 04/19/2025: Successful deployment of Watchman Flex Pro 31 mm device in left atrial appendage. Mild LOLLY device flow, mild to moderate MR, mild AI
Echo 10/21/2023: EF 35 to 40%, mild to moderate MR, mild , 14/9 mmHg, mild TR
Cardiac catheterization 12/07/2019: Patent ALDRICH to LAD, SVG to diagonal, and SVG to OM 2. Severe [place] two-vessel CAD, moderate to severe LV dysfunction, RA 16, PA 58/24, PCWP 22
Plan:
Levophed turned off around 8 AM
GDMT is on hold due to marginal BP
Continues on midodrine
Seems to be more compensated from a volume standpoint. Weight is coming down and he has been weaned to room air.
With stable renal function would continue IV lasix for now.
Broad-spectrum antibiotics for possible sepsis per primary team
He is DNR and family is considering comfort care
Discussed with nursing
CC: 33 min
Patient is critically ill due to septic shock and acute heart failure with reduced ejection fraction requiring pressors for hemodynamic support
History of Present Illness 05/26/2025:
Sathish is an 84 year old male with PMH of paroxysmal afib s/p PVI 2019 and most recently redo PVI with Watchman 04/19/2025, CAD s/p CABG, chronic HFmrEF, CM, DM, HTN, HLD falls, hemorrhoidal bleeding, iron deficiency anemia who presented to [facility] with
shortness of breath, increased LE edema, and intermittent confusion. Ten days ago he had acute vision loss in his right eye and was seen at [facility] where he was diagnosed with spontaneous retinal hemorrhage secondary to Eliquis. Being worked up
for glaucoma. Eliquis was held for one week (pt kept on ASA 81 mg daily) and Eliquis resumed after one week hold at reduced dose of 2.5 mg twice a day. In addition, he was started on acetazolamide and Lasix and spironolactone were discontinued.
He gained 5 pounds with increased lower extremity edema. He called the cardiology office earlier this week and Lasix was resumed at 40 mg 3 x week with no improvement in symptoms and he therefore presented to [facility] ED on 05/25/2025. Also reports
intermittent confusion. Denies unilateral weakness, numbness/tingling, slurred speech, dysphagia, facial droop.
Progress Note - Americanization Teacher
Subjective
Date of Service: June 01, 2025
No acute overnight events. Patient tells me he feels poorly this morning but no specific complaints. No chest pain, shortness of breath or lightheadedness/dizziness. Levophed turned off around 8 AM.
Objective
Labs:
06/01/25 03:38
06/01/25 03:38
Labs
Hgb 11.5 g/dL (13.0-18.0) L 06/01/25 03:38
Hct 35.5 % (39.0-52.0) L 06/01/25 03:38
Plt Count 239 10^3/uL (130-400) 06/01/25 03:38
PT 20.0 Sec (11.4-14.6) H 05/28/25 01:33
INR 1.68 05/28/25 01:33
Sodium 138 mmol/L (135-145) 06/01/25 03:38
Potassium 3.3 mmol/L (3.5-5.1) L 06/01/25 03:38
BUN 38 mg/dl (9-20) H 06/01/25 03:38
Creatinine 1.4 mg/dL (0.7-1.3) H 06/01/25 03:38
Glucose 133 mg/dl (70-99) H 06/01/25 03:38
Vital Signs and I&O:
Vital Signs
Temp Pulse Resp BP Pulse Ox
97.4 F 92 32 105/50 96
06/01/25 07:40 06/01/25 08:00 06/01/25 08:00 06/01/25 07:46 06/01/25 08:00
Vital Signs
Temp Pulse Resp BP Pulse Ox
97.4 F 92 32 105/50 96
06/01/25 07:40 06/01/25 08:00 06/01/25 08:00 06/01/25 07:46 06/01/25 08:00
Intake & Output
05/30/25 05/31/25 06/01/25 06/02/25
06:59 06:59 06:59 06:59
Intake Total 1779.5 / 1813.3 797.8 / 820.3 387.5 / 391.3 7.6 / 7.6
Output Total 2645 / 2695 2225 / 2275 1645 / 1680 52 / 52
Balance -865.5 / -881.7 -1427.2 / -1454.7 -1257.5 / -1288.7 -44.4 / -44.4
Physical Exam
Physical Exam
Gen: NAD, AA
HEENT: NC/AT, sclera anicteric
Neck: No JVD
CV: Irregular, 3/6 ISA across the precordium
Lungs: No increased work of breathing on room air
Abd: S/ND
Ext: Cool, no LE edema
Skin: Warm, dry
Neuro: Non-focal
--- NOTE | 2025-06-01 09:42 | PTCARENOTE ---
Rec'd care of patient at 0700. Oriented x2; disoriented to time. Left pupil equal, round and reactive; +2mm. Right pupil oval, fixed. MAEx4. Patient drowsy. Flat/withdrawn. Afib with pvcs on tele. Levophed infusing through LDL PICC; weaned off
around 0800. Pulse ox 98% on 2Lnc. Weaned to RA. Lung sounds shallow, diminished throughout. Crackles auscultated 1/2 up posteriorly. Tachypneic. BEAVER. +BS. Incontinent of a large amount of liquid, brown stool. CHG bath provided and rectal trumpet
placed. Appetite poor. Perez in place for critical I/O. Output improved s/p administration of IV Lasix. See worklist for full assessment and care.
--- NOTE | 2025-06-01 10:13 | W.PN.HOSP.TC ---
Today's Communication/Plan
-
.
Assessment / Plan
Assessment / Plan
Physical exam:
GEN: No distress, awake, chronically ill looking
HEENT: supple, anicteric, mmm
LUNGS: decreased BS with basal rales
CV: Reg, S1/S2, 1/6 syst LSB, no murmur
ABD: soft, BS+, NT/ND
EXT: 1+ LE edema, LEs cold
NEURO: oriented to self and surroundings, Gross non-focal, 5/5 UE strength, speech clear
Psych: calm
#Septic Shock POA
#Right lower extremity cellulitis
Blood and urine culture are NGTD
- Empiric IV Zosyn for total of 5 days. Last day 06/01/25.
� MRSA swab - negative
� lower extremity Doppler - negative
- On Levophed and oral Midodrine
#Acute hypercapnic respiratory failure
#Respiratory acidosis
� Improved
� Appears to be acute on chronic most likely with history of severe restrictive disease although no previous noted
�Continue NIV as long as BP tolerates at night
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
Creatinine seems stable
# Acute HFrEF exacerbation
- EF of 35 to 40%
on IV Lasix
Lost weight
-- echo with new Severe
- Holding ramipril due to hypotension
� Hold Coreg dose given bradycardia first-degree AV block,
- Cardiology consulted
#Elevated troponin
� nonischemic myocardial injury secondary to shock
� No chest pain
#Severe
-contributing factor in SOB
Not safe for TAVR per cardiology -
#Leukocytosis
# Hyponatremia
#Hypokalemia
CAD status post CABG
- Continue atorvastatin
Paroxysmal atrial fibrillation with Watchman
- Off Coreg
- Continue Eliquis, patient now on reduced dose due to hemorrhage of right eye
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
- Continue acetazolamide, brimonidine
Type 2 diabetes
- Hold metformin
- Insulin sliding scale
Hyperlipidemia
- Continue statin
History of bleeding hemorrhoid
Code status changed to DNR
DVT prophylaxis�Eliquis
Cardiac diet
Total time spent to see the patient, examine the patient, review data and lab results, discuss treatment plan with patient, nursing staff around 55 minutes�
Anticipated Discharge: > 48 hours
Subjective/Interval History
-
Date of Service: June 01, 2025
No chest pain
No sob
He reports ( he is bored and had boring night)
Objective Data
-
Labs:
Laboratory Results
06/01/25
03:38
WBC 19.1 H
Hgb 11.5 L
Hct 35.5 L
Plt Count 239
Sodium 138
Potassium 3.3 L
Chloride 104
Carbon Dioxide 29
BUN 38 H
Creatinine 1.4 H
Glucose 133 H
Calcium 8.9
Vital Signs:
Vital Signs
Temp Pulse Resp BP Pulse Ox
97.4 F 102 24 105/50 92
06/01/25 07:40 06/01/25 09:00 06/01/25 09:00 06/01/25 07:46 06/01/25 09:26
I&O
05/31/25 06/01/25 06/02/25
06:59 06:59 06:59
Intake Total 797.8 / 820.3 387.5 / 391.3 7.6 / 7.6
Output Total 2225 / 2275 1645 / 1680 217 / 217
Balance -1427.2 / -1454.7 -1257.5 / -1288.7 -209.4 / -209.4
--- NOTE | 2025-06-01 12:25 | PTCARENOTE ---
No major changes in assessment. VSS. Levophed remains off. Right radial blair removed. PT/OT orders obtained.
[2025-06-01 12:46] LABS: Glucose - Point of Care 138 mg/dl (70-99)
--- NOTE | 2025-06-01 14:59 | PTCARENOTE ---
PT/OT at bedside. Patient oob to chair. VSS.
--- NOTE | 2025-06-01 17:54 | TRANSFER ---
Patient downgraded to tele level. Transferred to 3W with belongings. Family present.
[2025-06-01 18:21] LABS: Glucose - Point of Care 230 mg/dl (70-99)
--- NOTE | 2025-06-01 18:23 | PTCARENOTE ---
Pt arrived to unit from ICU around 1800 this shift. Vital signs stable. No pain reported at this time. All needs met. Plan of care ongoing.
[2025-06-01] MEDS: NOVOLOG FLEXPEN-MODERATE RESISTANCE 3 UNITS SC (18:40)
[2025-06-01 21:46] LABS: Glucose - Point of Care 176 mg/dl (70-99)
[2025-06-01] MEDS: MELATONIN 5 MG PO (21:58)
[2025-06-01] MEDS: PEPCID 20 MG IV (21:58)
[2025-06-01] MEDS: NSS (PRESERVATIVE FREE) 8 ML IV (21:59)
[2025-06-01] MEDS: NON-FORMULARY ITEM 1 DROP RIGHT EYE (22:02)
[2025-06-02] VITALS (60 sets, daily range): BP systolic 71–130; BP diastolic 49–88; BMI 26.3
[2025-06-02] MEDS: ALPHAGAN 0.2% EYE DROPS 1 DROP RIGHT EYE ×3 (02:13→15:57)
[2025-06-02 07:50] LABS: Glucose - Point of Care 122 mg/dl (70-99)
[2025-06-02] MEDS: NOVOLOG FLEXPEN-MODERATE RESISTANCE SC ×2 (07:52→17:13)
[2025-06-02] MEDS: CYCLOGYL 1% EYE DROPS 1 DROP RIGHT EYE (07:55)
[2025-06-02] MEDS: NON-FORMULARY ITEM 1 UNIT RIGHT EYE (07:55)
[2025-06-02] MEDS: PRED FORTE 1% EYE DROPS 1 DROP RIGHT EYE ×3 (07:56→15:57)
[2025-06-02] MEDS: DESENEX/MITRAZOL/ZEASORB 1 APPLIC TOPICAL ×2 (07:59→20:40)
[2025-06-02] MEDS: ELIQUIS 2.5 MG PO (08:11)
[2025-06-02] MEDS: KCL 20 MEQ PO ×2 (08:12→10:35)
[2025-06-02] MEDS: COREG 3.125 MG PO (08:12)
--- NOTE | 2025-06-02 08:47 | PN.CDI ---
Addendum entered and electronically signed by Henry Vyas MD 06/02/25 09:23:
�NO sepsis was not POA, all SIRS ( will document in the note later today)
Original Note:
CDI
- -
CDI:
Physician Documentation Request
Admit Date: 05/25/25 21:05
Dear Doctor Asael,
Patient presented to ED for evaluation of shortness of breath.
H&P states 'acute HFrEF exacerbation'
05/28 Flux Tube Attendant was consulted for sepsis. Consult states 'Overnight 05/27/25, he was notably hypotensive and placed on pressors, admitted to ICU.'
05/28 Cardiology note states 'Despite development of clinical sepsis last night...'
Not until 05/30 does hospitalist note state 'Septic Shock POA'
Patient has remained afebrile, 05/25 heart rates recorded as 64-88, respiratory rates 17-30,
WBC on presentation
Laboratory Tests
05/25/25 05/26/25
15:36 05:22
WBC 9.2 9.0
Recognized standard criteria for this condition and other associated definitions:
�Sepsis
-Systemic manifestations of infection, with 2 or more SIRS criteria which include:
-Fever > 100.9��F or hypothermia < 96.8��F
-Leukocytosis WBC > 12,000 or leukopenia, WBC < 4,000, or > 10% bands
-Tachycardia- > 90 beats/minute
-Tachypnea- RR > 20 breaths/minute or PaCO2 < 32mmHg
Source: Merck Manual 2013
In an attempt to clarify potentially conflicting documentation please clarify if sepsis POA is still an accurate diagnosis, and reflective of the patient�s condition, to ensure quality of the medical record.
Please clarify in the Progress Notes:
� Yes, Sepsis is/was present on admission and is a clinical diagnosis based on (please include this additional support in the medical record)
�NO sepsis was not POA
�Unable to determine
Use of terms such as suspected, likely, concern for, or probable (associated with a specific diagnosis that is being evaluated, monitored, or treated as if it exists) are acceptable and can be coded in the inpatient setting, when documented at the
time of discharge.
Thank you,
Anabella Shaffer RN, BSN
CDI Specialist
tiger text
Please use your independent medical judgment in providing your response.
--- NOTE | 2025-06-02 09:34 | W.PN.HOSP.TC ---
Today's Communication/Plan
-
Complex CV status, will benefit from comfort care . Severe with CMP
c/w low dose Lasix, Coreg, potassium
c/w oral midodrine
Assessment / Plan
Assessment / Plan
Physical exam:
GEN: No distress, awake, chronically ill looking
HEENT: supple, anicteric, mmm
LUNGS: decreased BS with basal rales
CV: Reg, S1/S2, 1/6 syst LSB, no murmur
ABD: soft, BS+, NT/ND
EXT: edema, peripheral cyanosis noted with cold fingers/toes.
NEURO: oriented to self and surroundings, Gross non-focal, 5/5 UE strength, speech clear
Psych: calm
# Shock, seems cardiogenic with absence of source of infection or could be SIRS
Unable to determine due to complexity but certainly cardiogenic shock was present
#Right lower extremity edema / erythema, non tender
Blood and urine culture are NGTD
- Finished Empiric IV Zosyn for total of 5 days. Last day 06/01/25.
� MRSA swab - negative
� lower extremity Doppler - negative
- s/p IV Levophed gtt
c/w oral Midodrine
c/w low dose Lasix 40-20 mg at noon time
#Acute hypercapnic respiratory failure
#Respiratory acidosis
� Improved
� Appears to be acute on chronic most likely with history of severe restrictive disease although no previous noted
�Continue NIV as long as BP tolerates at night
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
Creatinine seems higher today
# Acute HFrEF exacerbation
- EF of 35 to 40%
s/p IV Lasix
Lost weight
-- echo with new Severe
- Holding ramipril due to hypotension
� can resume low dose Coreg with holding parameters
- Cardiology consulted
#Elevated troponin
� nonischemic myocardial injury secondary to shock
� No chest pain
#Severe
-contributing factor in SOB
Not safe for TAVR per cardiology -
#Leukocytosis
# Hyponatremia
#Hypokalemia
CAD status post CABG
- Continue atorvastatin
Paroxysmal atrial fibrillation with Watchman
- Off Coreg
- Continue Eliquis, patient now on reduced dose due to hemorrhage of right eye
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
- Continue acetazolamide, brimonidine
Type 2 diabetes
- Hold metformin
- Insulin sliding scale
Hyperlipidemia
- Continue statin
History of bleeding hemorrhoid
Code status changed to DNR
DVT prophylaxis�Eliquis
Cardiac diet
Total time spent to see the patient, examine the patient, review data and lab results, discuss treatment plan with patient, nursing staff around 55 minutes�
Anticipated Discharge: > 48 hours
Subjective/Interval History
-
Date of Service: June 02, 2025
Pt denies chest pain or sob
Objective Data
-
Labs:
Laboratory Results
06/02/25
09:10
Sodium Pending
Potassium Pending
Chloride Pending
Carbon Dioxide Pending
BUN Pending
Creatinine Pending
Glucose Pending
Calcium Pending
Vital Signs:
Vital Signs
Temp Pulse Resp BP Pulse Ox
98.6 F 84 15 130/73 91
06/02/25 07:00 06/02/25 08:12 06/02/25 07:00 06/02/25 08:12 06/02/25 07:00
I&O
06/01/25 06/02/25 06/03/25
06:59 06:59 06:59
Intake Total 387.5 / 391.3 367.6 / 367.6
Output Total 1645 / 1680 957 / 957
Balance -1257.5 / -1288.7 -589.4 / -589.4
[2025-06-02 09:44] LABS: Blood Urea Nitrogen 41 mg/dl (9-20); Calcium 9.2 mg/dl (8.4-10.2); Carbon Dioxide 29 mmol/L (22-30); Chloride 103 mmol/L (98-107); Estimated Creatinine Clearance 28 ml/min; Glucose 188 mg/dl (70-99); Potassium 3.6 mmol/L (3.5-5.1); Sodium 140 mmol/L (135-145); eGFR 36.43
--- NOTE | 2025-06-02 10:18 | W.PN.CARDCBS ---
Addendum entered and electronically signed by Annalise Blair DO 06/02/25 12:11:
I saw and examined the patient.
The Employment Supervisor's note was reviewed and I agree with the note.
Comment: Patient was seen and examined. Chart/telemetry reviewed. Discussed case with patient's usual handle attacher
GEN: chronically ill appearing
HEENT: Cannot see out of right eye. Mucous membranes moist
LUNGS: Exam difficult due to patient's weakness. Clear to auscultation decreased at the bases
CV: Irreg, S1/S2, 2/6 syst LSB
ABD: soft, BS+, NT/ND
EXT: No edema. Cool distal extremities
Plan:
Medically complex 84-year-old gentleman recently transferred out of the ICU 06/01 for acute hypoxic/hypercapnic respiratory failure requiring BiPAP and shock requiring pressors with underlying severe aortic stenosis, restrictive lung disease with
severe pulmonary hypertension, coronary artery disease status post bypass in 2002, type 2 diabetes mellitus and paroxysmal atrial fibrillation status post Watchman 04/19/2025 with prehospital acute loss of vision in his right eye seen at [facility] eye
reportedly with hemorrhage secondary glaucoma with persistent vision loss
- Sathish appears medically frail with cool distal extremities concerning for low-flow state. Echocardiogram reviewed from 05/26/2025 with moderate reduced LV systolic function estimated 35-40% along with RV dilatation and dysfunction and estimated RV
systolic pressure 73 mmHg. Aortic valve is trileaflet with severe aortic stenosis/peak/mean gradients 41/25 mmHg with a dimensionless index of 0.2 and aortic valve area 0.8. He had moderate MR and TR.
-Continue supplemental oxygen
- Blood pressures are relatively stable on midodrine 10 mg every 8 hours. Avoid hypotension
- He is having frequent runs of NSVT�will start Coreg. Keep K greater than 2, mag greater than 4.
- Now on oral Lasix with creatinine slightly increased. Will continue current dose of Lasix for now�monitor closely may need right heart catheterization
- Patient is back in atrial fibrillation; was in sinus rhythm in March after Watchman procedure and PVI. Prior history of intolerance to amiodarone. May benefit from attempt to restore sinus rhythm however has been off anticoagulation for a week
following eye hemorrhage; would need transesophageal echocardiogram prior to cardioversion to reassess Watchman
- Unclear if he is a candidate for TAVR at this time
- Patient is DNR/DNI with some discussions regarding hospice however reportedly patient is 'not ready '
- Given medical complexity will transfer to IVU for closer monitoring
Original Note:
Today's Communication / Plan
-
resume coreg
replete K. check mag
wean midodrine
proBNP remains elevated, Cr also uptrending. may need to consider repeat CXR
would consider moving patient to IVU given runs of NSVT
Impression / Plan
-
PCP: Bobbi Salvador MD
CDY: Ivan Amador MD
Impression:
Presented 05/25/2025 shortness of breath, edema, intermittent confusion
Shock - presumed septic shock
Acute respiratory failure on BiPAP with CO2 retention
Acute on chronic heart failure with reduced ejection fraction, Pro BNP 11,400
Severe aortic stenosis
CARLEEN, creatinine 1.6, improving 1.5 on 05/30/2025
Hyponatremia
hyperkalemia on presentation, ramipril stopped
Vitreal hemorrhage R eye requiring one week hold of Eliquis and reduction in dose to 2.5 mg bid, with low vision bilaterally
Paroxysmal Atrial fibrillation
prior PVI 2019
post redo PVI and Watchman device implant 31mm 04/19/25
CAD/CABG 2002
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
Ambulatory dysfunction with frequent falls
NIDDM
Hyperlipidemia
h/o bleeding hemorrhoids
DNR
Echo 05/26/2025: EF 40%. Septal straightening and global hypokinesis with regional variability. Moderately dilated and hypokinetic RV, dilated RA. Dilated left atrium with moderate MR. Severe aortic stenosis with peak/mean gradient 41/25 mmHg and
DEVEN 0.9 cm�. Moderate TR with severe pulmonary hypertension 73 mmHg
MICHAEL 04/19/2025: Successful deployment of Watchman Flex Pro 31 mm device in left atrial appendage. Mild LOLLY device flow, mild to moderate MR, mild AI
Echo 10/21/2023: EF 35 to 40%, mild to moderate MR, mild , 14/9 mmHg, mild TR
Cardiac catheterization 12/07/2019: Patent ALDRICH to LAD, SVG to diagonal, and SVG to OM 2. Severe [place] two-vessel CAD, moderate to severe LV dysfunction, RA 16, PA 58/24, PCWP 22
Plan:
- he presented with SOB and LE edema consistent with acute CHF exacerbation after being started on acetazolamide, with lasix and spironolactone being stopped.
- he is very medically complex
- he was critically ill with shock requiring pressors, able to be weaned off 9/3 AM.
- Blood pressure slowly improving. Remains on midodrine 10 mg every 8 hours, wean as able.
- Also remains with frequent runs of NSVT on review of telemetry overnight, would consider moving patient to IVU. Will attempt to keep K greater than 4 and mag greater than 2. Ordered potassium repletion
- Started back on Coreg at lower dose of 3.125 mg twice daily. GDMT of cardiomyopathy as able. Was previously on ramipril, spironolactone, and SGLT2 antagonist prior to admission, presently on hold
- He is now on p.o. Lasix 40 mg daily. Creatinine bumped to 1.8 today, trend. he reports when he has swelling it typically occurs in his belly. proBNP remains elevated, may need to consider repeat CXR
- Wean supplemental oxygen as able
- He has history of paroxysmal atrial fibrillation with prior PVI in 2019 as well as PVI with Watchman 04/19/2025. He is back in A-fib at present. He is noted to have prior history of intolerance to amiodarone. Consider benefit of attempting to
restore sinus rhythm prior to discharge
- He had vitreal hemorrhage of his right eye in mid April 2025 and Eliquis had been held for 1 week and then resumed at reduced dose of 2.5 mg twice daily, continue
- Has known severe aortic stenosis. Will need to consider candidacy for TAVR
- He is DNR, however is not ready for comfort/hospice level care at this time. plan for SNF when ready for DC. continue PT/OT
History of Present Illness 05/26/2025:
Sathish is an 84 year old male with PMH of paroxysmal afib s/p PVI 2019 and most recently redo PVI with Watchman 04/19/2025, CAD s/p CABG, chronic HFmrEF, CM, DM, HTN, HLD falls, hemorrhoidal bleeding, iron deficiency anemia who presented to [facility] with
shortness of breath, increased LE edema, and intermittent confusion. Ten days ago he had acute vision loss in his right eye and was seen at [facility] where he was diagnosed with spontaneous retinal hemorrhage secondary to Eliquis. Being worked up
for glaucoma. Eliquis was held for one week (pt kept on ASA 81 mg daily) and Eliquis resumed after one week hold at reduced dose of 2.5 mg twice a day. In addition, he was started on acetazolamide and Lasix and spironolactone were discontinued.
He gained 5 pounds with increased lower extremity edema. He called the cardiology office earlier this week and Lasix was resumed at 40 mg 3 x week with no improvement in symptoms and he therefore presented to [facility] ED on 05/25/2025. Also reports
intermittent confusion. Denies unilateral weakness, numbness/tingling, slurred speech, dysphagia, facial droop.
Progress Note - [employer]
Subjective
Date of Service: June 02, 2025
Denies chest pain, shortness of breath. Reports feeling weak
Objective
Labs:
06/01/25 03:38
06/02/25 09:10
Labs
Hgb 11.5 g/dL (13.0-18.0) L 06/01/25 03:38
Hct 35.5 % (39.0-52.0) L 06/01/25 03:38
Plt Count 239 10^3/uL (130-400) 06/01/25 03:38
PT 20.0 Sec (11.4-14.6) H 05/28/25 01:33
INR 1.68 05/28/25 01:33
Sodium 140 mmol/L (135-145) 06/02/25 09:10
Potassium 3.6 mmol/L (3.5-5.1) 06/02/25 09:10
BUN 41 mg/dl (9-20) H 06/02/25 09:10
Creatinine 1.8 mg/dL (0.7-1.3) H 06/02/25 09:10
Glucose 188 mg/dl (70-99) H 06/02/25 09:10
Vital Signs and I&O:
Vital Signs
Temp Pulse Resp BP Pulse Ox
98.6 F 84 15 130/73 91
06/02/25 07:00 06/02/25 08:12 06/02/25 07:00 06/02/25 08:12 06/02/25 07:00
Vital Signs
Temp Pulse Resp BP Pulse Ox
98.6 F 84 15 130/73 91
06/02/25 07:00 06/02/25 08:12 06/02/25 07:00 06/02/25 08:12 06/02/25 07:00
Intake & Output
05/31/25 06/01/25 06/02/25 06/03/25
07:59 07:59 07:59 07:59
Intake Total 786.5 / 809.0 368.8 / 372.6 363.8 / 363.8
Output Total 2225 / 2275 1630 / 1647 922 / 922
Balance -1438.5 / -1466.0 -1261.2 / -1274.4 -558.2 / -558.2
Physical Exam
Physical Exam
GEN: No distress, awake, alert, oriented x3. chronically ill appearing
HEENT: supple, anicteric, mmm, EOMI
LUNGS: CTA anterolaterally but difficult exam as could not sit up for me to listen posteriorly, no wheezes
CV: Irreg, S1/S2, 2/6 syst LSB
ABD: soft, BS+, NT/ND
EXT: No cyanosis, clubbing, edema
NEURO: Gross non-focal
SKIN: Warm, pink, dry. No rash
[2025-06-02 11:23] LABS: Magnesium 2.5 mg/dl (1.6-2.3)
[2025-06-02 12:23] LABS: Glucose - Point of Care 278 mg/dl (70-99)
[2025-06-02] MEDS: ZOFRAN 4 MG IV (12:36)
[2025-06-02] MEDS: LASIX 40 MG PO (12:37)
[2025-06-02] MEDS: NOVOLOG FLEXPEN-MODERATE RESISTANCE 5 UNITS SC (12:37)
--- NOTE | 2025-06-02 13:24 | W.PN.UPDATE ---
Update Note
Progress Note Update
Back up to see patient and update family now at bedside. Discussed all with patient's and daughter. He reports some nausea since eating breakfast this morning. We discussed concern for him being in a low flow state related to his
cardiomyopathy, severe , atrial fibrillation. He is also noted to have runs of NSVT on review of telemetry, which does seem to be improving status post receiving Coreg and repleting potassium this morning. We discussed right heart cath to help
determine his volume status, as well as to determine his cardiac output. He may require inotropic therapy, likely with milrinone given his frequent ectopy. Reviewed that we are transferring patient to IVU for closer monitoring. They have
requested that right heart cath be done tomorrow as additional family members are flying in today and then they will discuss continued goals of care. We will hold Kristian fisher and plan for right heart cath tomorrow. We discussed severity of his
cardiac illnesses. He is presently a DNR. Discussed with nursing
Asked to discuss with additional family who since initial conversation have arrived. summarized above. plan remains same, will complete RHC in AM. further recommendations regarding additional diuresis, inotropic therapy will be based on RHC results.
5 family members in agreement with plan.
now with hypotension, 89/66. received midodrine 10mg at 1600. will resume levo@2 and follow.
CCT 34 minutes
--- NOTE | 2025-06-02 14:31 | PTOTSP ---
Speech Language Pathology
Spoke with pt and at bedside. Plan for transfer to IVU for closer monitoring. Per , would like to defer LEAD RAMP SERVICE MAN this date, as not the current highest priority. Will continue to follow as appropriate. Of note, new LEAD RAMP SERVICE MAN orders will be required
if transfers to IVU (higher level of care).
--- NOTE | 2025-06-02 15:19 | PTCARENOTE ---
Patient received from [facility]. He is alert to self, place and time. A-fib Hr 90-100's. Extremities are cool, dusky. Placed in warm blankets. BP 98/55. Placed on 4 liters NC. Difficulty obtaining pulse ox reading, 92-97%, dusky color of nail beds
improved with 4 liters NC. Bed alarm placed for safety
[2025-06-02 17:10] LABS: Glucose - Point of Care 160 mg/dl (70-99)
[2025-06-02] MEDS: LEVOPHED 250 IV (17:46)
--- NOTE | 2025-06-02 18:20 | PTCARENOTE ---
Addendum entered by Scout Carias RN 06/02/25 19:18:
Patient remains hypotensive since transfer from [facility]. Midodrine 10mg po given at 1600 with no improvement. Levophed gtt started. Perez removed at 8 am this morning, no urine output, bladder scan for 3 cc, incontinent of a tarry dark drown stool,
care provided. Report given to IMU and patient transferred to [facility], family updated.
Original Note:
Patient remains hypotensive since transfer from [facility]. Midodrine 10mg po given at 1600 with no improvement. Levophed gtt started. Report given to IMU and patient transferred to [facility], family updated.
--- NOTE | 2025-06-02 18:55 | PTCARENOTE ---
Addendum entered by Debbie Guerra RN 06/02/25 19:11:
RN updated nightshift STILL WORKER HELPER regarding no urine output,
Original Note:
Rec'd pt on upgrade from IVU to IMU for hypotension requiring levo. Currently on 2mcg. BP improved. Pt is minimally responsive, cyanotic fingers and toes. 100% sat on 4L NC. Pt has made no urine today per bladder scan from prior units. Family
updated at bedside.
--- NOTE | 2025-06-02 19:41 | PTCARENOTE ---
Received pt at change of shift. Pt able to quitely respond but does not open eyes; very lethargic. Levo increased to 6 mcg/min as SBP remains in low 80s. Hands and feet displaying mottling; very weak PP. Pulse ox 100% on 4L NC; shallow
respirations. HANG GLIDING INSTRUCTOR made aware of increased Levo.
[2025-06-02] MEDS: COREG PO (19:46)
[2025-06-02] MEDS: CYCLOGYL 1% EYE DROPS RIGHT EYE ×2 (20:39→20:44)
[2025-06-02] MEDS: MELATONIN PO (20:40)
[2025-06-02] MEDS: NON-FORMULARY ITEM RIGHT EYE ×3 (20:40→20:44)
[2025-06-02] MEDS: PRED FORTE 1% EYE DROPS RIGHT EYE (20:44)
[2025-06-03] VITALS (68 sets, daily range): BP systolic 61–137; BP diastolic 33–96; BMI 26.0
[2025-06-03 00:32] LABS: Glucose - Point of Care 150 mg/dl (70-99)
[2025-06-03] MEDS: ALPHAGAN 0.2% EYE DROPS RIGHT EYE ×3 (01:10→23:57)
[2025-06-03] MEDS: LEVOPHED 250 IV ×2 (03:33→14:14)
[2025-06-03 05:23] LABS: Hematocrit 40.0 % (39.0-52.0); Hemoglobin 12.6 g/dL (13.0-18.0); Mean Corp Hgb Conc. 31.5 g/dL (33.0-37.0); Mean Corpuscular Volume 102.6 fL (80.0-94.0); Platelet Count 287 10^3/uL (130-400); Red Cell Dist. Width 15.1 % (11.5-14.5)
[2025-06-03 05:38] LABS: Blood Urea Nitrogen 56 mg/dl (9-20); Calcium 9.5 mg/dl (8.4-10.2); Carbon Dioxide 30 mmol/L (22-30); Chloride 105 mmol/L (98-107); Estimated Creatinine Clearance 22 ml/min; Glucose 179 mg/dl (70-99); Potassium 4.3 mmol/L (3.5-5.1); Sodium 141 mmol/L (135-145); eGFR 27.15
[2025-06-03 05:45] LABS: Glucose - Point of Care 124 mg/dl (70-99)
--- NOTE | 2025-06-03 06:10 | PTCARENOTE ---
Pt did not void throughout this shift. Bladder scanned for 175 ml.
[2025-06-03] MEDS: ALPHAGAN 0.2% EYE DROPS 1 DROP RIGHT EYE (08:27)
[2025-06-03] MEDS: COREG PO ×3 (08:28→21:30)
[2025-06-03] MEDS: DESENEX/MITRAZOL/ZEASORB 1 APPLIC TOPICAL ×2 (08:29→21:46)
[2025-06-03] MEDS: KCL PO (08:29)
[2025-06-03] MEDS: CYCLOGYL 1% EYE DROPS 1 DROP RIGHT EYE (08:29)
[2025-06-03] MEDS: LASIX PO (08:29)
[2025-06-03] MEDS: NON-FORMULARY ITEM 1 UNIT RIGHT EYE (08:30)
[2025-06-03] MEDS: PRED FORTE 1% EYE DROPS 1 DROP RIGHT EYE (08:30)
[2025-06-03] MEDS: NOVOLOG FLEXPEN-MODERATE RESISTANCE SC ×3 (08:32→17:57)
--- NOTE | 2025-06-03 09:12 | W.PN.HOSP.TC ---
Today's Communication/Plan
-
.f/w cardiology recommendations
Assessment / Plan
Assessment / Plan
Physical exam:
GEN: No distress, awake, chronically ill looking
HEENT: supple, anicteric, mmm
LUNGS: decreased BS with basal rales
CV: Reg, S1/S2, 1/6 syst LSB, no murmur
ABD: soft, BS+, NT/ND
EXT: edema, peripheral cyanosis noted with cold fingers/toes.
NEURO: lethargic
Psych: calm
# Shock, seems cardiogenic with absence of source of infection or could be SIRS
Likely SIRS POA with organ dysfunction
Now with multiple organ failure
Persistent shock despite pressure support
Will benefit from comfort care
f/w cardiology recommendations
# Acute HFrEF exacerbation
- EF of 35 to 40%
s/p IV Lasix
Lost weight
-- echo with new Severe
- Holding ramipril due to hypotension
� can resume low dose Coreg with holding parameters
- Cardiology consulted
#Elevated troponin
� nonischemic myocardial injury secondary to shock
� No chest pain
#Severe
Not a candidate for TAVR per cardiology -
#Right lower extremity edema / erythema, non tender
Blood and urine culture are NGTD
- Finished Empiric IV Zosyn for total of 5 days. Last day 06/01/25.
� MRSA swab - negative
� lower extremity Doppler - negative
- s/p IV Levophed gtt, now back on it due to CMP
#Acute hypercapnic and hypoxic respiratory failure
#Respiratory acidosis
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
with oliguria
Creatinine is going up
#Leukocytosis
# Hyponatremia
#Hypokalemia
CAD status post CABG
- Continue atorvastatin
Paroxysmal atrial fibrillation with Watchman
- Continue Eliquis, patient now on reduced dose due to hemorrhage of right eye
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
- Continue acetazolamide, brimonidine
Type 2 diabetes
- Hold metformin
- Insulin sliding scale
Hyperlipidemia
- Continue statin
History of bleeding hemorrhoid
Code status changed to DNR
DVT prophylaxis�Eliquis
Cardiac diet
Total time spent to see the patient, examine the patient, review data and lab results, discuss treatment plan with patient, nursing staff around 55 minutes�
Anticipated Discharge: > 48 hours
Subjective/Interval History
-
Date of Service: June 03, 2025
Objective Data
-
Labs:
Laboratory Results
06/03/25
05:05
WBC 16.5 H
Hgb 12.6 L
Hct 40.0
Plt Count 287 D
Sodium 141
Potassium 4.3
Chloride 105
Carbon Dioxide 30
BUN 56 H
Creatinine 2.3 H
Glucose 179 H
Calcium 9.5
Vital Signs:
Vital Signs
Temp Pulse Resp BP Pulse Ox
97.5 F 82 28 94/74 100
06/03/25 07:25 06/03/25 08:28 06/03/25 05:15 06/03/25 08:28 06/03/25 04:30
I&O
06/02/25 06/03/25 06/04/25
06:59 06:59 06:59
Intake Total 367.6 / 367.6
Output Total 957 / 957
Balance -589.4 / -589.4
--- NOTE | 2025-06-03 10:46 | PTCARENOTE ---
Pt coughing with oral intake, unable to take PO meds. Remains on levo. no urine output past 24 hours. bladder scan currently 212. family at bedside.
--- NOTE | 2025-06-03 12:12 | CM ---
Chart reviewed and per notes patient is for possible cardiac cath today, patient and spouse met with hospice for information only. Physical therapy held today due to procedure, needs follow up.
Plan ; To follow with progress.
[2025-06-03] MEDS: PRED FORTE 1% EYE DROPS RIGHT EYE ×3 (12:30→21:42)
[2025-06-03 12:35] LABS: Glucose - Point of Care 127 mg/dl (70-99)
--- NOTE | 2025-06-03 13:53 | PTCARENOTE ---
Pt remains on levo at 6mcg. Efforts to reduce dosing to 5mcg quickly causes his BP to drop with Sys under 90. Report given to Correctional Captain RN. unknown what time cath will take place.
--- NOTE | 2025-06-03 16:17 | ITS.CL.CATH ---
Improvement Specialist - Catheterization
Cardiac Catheterization
Procedure Report:
RIGHT HEART CATHETERIZATION
Date of Procedure: June 03, 2025
Referring: Dr. Ivan Amador
INDICATION: Progressive renal insufficiency
Hemodynamics (mmHg):
AO cuff pressure at beginning of procedure: 149/77, 105
RA (m) : 20
RV (s/d,m) : 79/10, 18
PA (s/d, m) : 79/33, 50
PCWP (m) : 19
Cardiac Output : 3.6 L/min and Cardiac Index : 1.9 L/min/m-2
Systemic vascular resistance: 23.6 Wood units or 1889 [id number])
Pulmonary vascular resistance: 8.6 Wood units or 689 [id number](-5)
SEDATION: 0 minutes of procedural sedation was utilized. An independent certified medical coding specialist was present to assist with and help manage the patient's level of consciousness and physiologic status
RADIATION SUMMARY: Fluoro Time (min): 3.0, Dose (mGy): 192, DAP (Gy.cm2) : 13.5
CONCLUSION:
1. Mildly elevated left ventricular filling pressures with pulmonary capillary wedge pressure of 19 mmHg
2. Severe pulmonary hypertension: Likely precapillary with mean PA pressures of 50 mmHg, pulmonary capillary wedge pressure 19 mmHg, and PVR of 8.6 Wood units. Findings most consistent with WHO Class 2 or 5 pulmonary hypertension
Copy to: Dr. Ivan Amador
[2025-06-03 17:38] LABS: Glucose - Point of Care 148 mg/dl (70-99)
--- NOTE | 2025-06-03 19:59 | PTCARENOTE ---
Pt returned from labor relations manager with cath site on right arm. unable to use right arm for BPs. labor relations manager RN reported left leg BP read 50s systolic. Right leg BP read 130s sys. left wrist (PICC arm) 92/52. Consulted with VAT RN, ok to use left wrist for BP
checks for 24 hours. Nightshift RN will update FOREIGN LAW CONSULTANT for order.
[2025-06-03] MEDS: CYCLOGYL 1% EYE DROPS RIGHT EYE (21:30)
[2025-06-03] MEDS: NON-FORMULARY ITEM RIGHT EYE ×2 (21:31→21:42)
[2025-06-03] MEDS: ELIQUIS PO (21:41)
[2025-06-03] MEDS: MELATONIN PO (21:41)
[2025-06-03 21:53] LABS: Glucose - Point of Care 96 mg/dl (70-99)
--- NOTE | 2025-06-03 21:59 | VATNOTE ---
Called by PCN to use L wrist for BP because s/p R cath R arm and BLE BP's are inaccurate. Pt is on levophed and extremities are reported to be cold as well pt has L PICC was instructed to obtain an order from DR to use L wrist x24 hrs for bp
measurments
--- NOTE | 2025-06-03 22:04 | W.PN.UPDATE ---
Update Note
Progress Note Update
BPs Have been very inconsistent tonight. Unfortunately unable to obtain on RUE due to having cardiac cath today, Cannot use x 24 hr. Order placed to check on left wrist (not above due to picc)-- but despite several attempts to obtain bp on left
wrist either bp cuff will not read or reads 60s/33. Right calf reads 132/94 but unclear how accurate this is as pt has been more hypotensive over last couple days even with levo gtt between 6-8mcg. Due to this discrepancies in BP readings feel pt
may benefit from A line for more accurate bp reading in order to titrate levo gtt. Will place order for tx to ICU.
--- NOTE | 2025-06-03 23:48 | PTCARENOTE ---
Received pt from IMU RN. Pt came to ICU for closer monitoring of blood pressures. Pt is Alert and oriented, confused at times. 6mcgs of levo infusing, SBP 120. Right lower extremity +3edema, all extremities are cool and purple, cap refill >2sec.
PICC in left upper arm, Right heart cath thru right Brachial. Pt has a scab on left foot great toe, on the planter of his right foot as well. Protective foam on upper spine. Placed on 2Lit O2 for oxygen saturation above 90%. Deonte Lane is aware of
upgrade to the ICU.
--- NOTE | 2025-06-03 23:58 | PTCARENOTE ---
Received patient on levophed gtt 6mcg/min with trouble getting accurate BPs. Left arm limb alert due to picc line and right arm unable to use until 1630 06/04 due to recent cath. BPs attempted on b/l legs with vastly different readings. TT sent to VAT
to see if left wrist could be used until right arm is able to be used again. ROAD MANAGER placed order. Left wrist BP initially in the 90s/60s. Later with a reading of 60s/40s and then unable to obtain BP. scallop cutter provider made aware and ordered patient to be
transferred to ICU for closer BP monitoring.
[2025-06-04] VITALS (29 sets, daily range): BP systolic 88–129; BP diastolic 55–104
[2025-06-04] MEDS: LEVOPHED 250 IV (03:48)
[2025-06-04 04:09] LABS: Hematocrit 37.6 % (39.0-52.0); Hemoglobin 12.0 g/dL (13.0-18.0); Mean Corp Hgb Conc. 31.9 g/dL (33.0-37.0); Mean Corpuscular Volume 100.8 fL (80.0-94.0); Platelet Count 262 10^3/uL (130-400); Red Cell Dist. Width 14.7 % (11.5-14.5)
[2025-06-04 04:28] LABS: ALT (SGPT) 58 U/L (0-50); AST (SGOT) 36 U/L (17-59); Albumin 3.3 g/dl (3.5-5.0); Alkaline Phosphatase 107 U/L (38-126); Blood Urea Nitrogen 65 mg/dl (9-20); Calcium 9.3 mg/dl (8.4-10.2); Carbon Dioxide 29 mmol/L (22-30); Chloride 104 mmol/L (98-107); Estimated Creatinine Clearance 22 ml/min; Glucose 167 mg/dl (70-99); Potassium 4.2 mmol/L (3.5-5.1); Sodium 141 mmol/L (135-145); Total Protein 5.7 g/dl (6.3-8.2); eGFR 27.15
--- NOTE | 2025-06-04 07:42 | W.PN.CARDCBS ---
Addendum entered and electronically signed by Ivan Amador MD 06/04/25 09:21:
Patient seen and examined
Agree with DEBBIE Aranda's note and assessment
Agree with DEBBIE Aranda's plan
I have had discussions with patient's , daughter, [id number]-rut 2 times last week regarding Sathish's wishes and goals of care and coordinated with Drs. Lovelace, Moses and Chi over the last 10 days.
Spoke with Caitie this morning about goals and wishes of care. He has been DNR/DNI and is considering comfort care with his family
Right heart catheterization details noted
Events of overnight noted
����Physical Exam
���������������������General:�In acute distress. Frail-appearing. Cachectic. Significant neck scoliosis
���������������������������Neck:��supple. no meningeal signs. normal psoterior pharynx�����������������������
���������������������������Heart:�Irregularly irregular, no murmur. equal radial pulses.
��������������������������Lungs: ��no acute respiratory distress. clear bilaterally
����������������������Abdomen:�normal bowel sounds. not tender. no CVAT
��������������������������Neuro:��alert and oriented. no focal neurological deficits
������������������������������Skin: ��no rash
�����������������������Psychiatric:�well kept. interactive and cooperative
�����������������������Extremities:��no edema. no calf tenderness. negative homans. good distal pulses
Impression:
Presented 05/25/2025 shortness of breath, edema, intermittent confusion
Shock - presumed septic shock
Acute respiratory failure on BiPAP with CO2 retention
Acute on chronic heart failure with reduced ejection fraction, Pro BNP 11,400
Severe aortic stenosis
CARLEEN, creatinine 1.6, improving 1.5 on 05/30/2025
Hyponatremia
hyperkalemia on presentation, ramipril stopped
Vitreal hemorrhage R eye requiring one week hold of Eliquis and reduction in dose to 2.5 mg bid, with low vision bilaterally
Paroxysmal Atrial fibrillation
prior PVI 2019
post redo PVI and Watchman device implant 31mm 04/19/25CAD/CABG 2002
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
Ambulatory dysfunction with frequent falls
NIDDM
Hyperlipidemia
h/o bleeding hemorrhoids
DNR
Echo 05/26/2025: EF 40%. Septal straightening and global hypokinesis with regional variability. Moderately dilated and hypokinetic RV, dilated RA. Dilated left atrium with moderate MR. Severe aortic stenosis with peak/mean gradient 41/25 mmHg and
DEVEN 0.9 cm�. Moderate TR with severe pulmonary hypertension 73 mmHg
MICHAEL 04/19/2025: Successful deployment of Watchman Flex Pro 31 mm device in left atrial appendage. Mild LOLLY device flow, mild to moderate MR, mild AI
Echo 10/21/2023: EF 35 to 40%, mild to moderate MR, mild , 14/9 mmHg, mild TR
Cardiac catheterization 12/07/2019: Patent ALDRICH to LAD, SVG to diagonal, and SVG to OM 2. Severe [place] two-vessel CAD, moderate to severe LV dysfunction, RA 16, PA 58/24, PCWP 22
Plan:
- he presented with SOB and LE edema consistent with acute CHF exacerbation after being started on acetazolamide, with lasix and spironolactone being stopped.
- he is very medically complex
- he was critically ill with shock requiring pressors, able to be weaned off 9/3 AM, however then restarted 9/4PM due to worsening hypotension. currently on levo@3 and midodrine 10mg Q8H
- Cr continues to trend up, 2.3 on 06/04. by [facility] 06/03 patient was relatively will compensated from volume standpoint. CI 1.9, wedge was 19, with severe pulm HTN. breathing appears to be somewhat labored this morning however patient denies SOB. In
discussions he mainly communicated anxiety over his medical illness and was amenable to benzodiazepine therapy
- he would not be a candidate for TAVR
- He has history of paroxysmal atrial fibrillation with prior PVI in 2019 as well as PVI with Watchman 04/19/2025. He is back in A-fib at present, rate controlled on review of tele. He is noted to have prior history of intolerance to amiodarone. I
suspect he is in atrial fibrillation due to his severe and significant medical illnesses
- He had vitreal hemorrhage of his right eye in mid April 2025 and Eliquis had been held for 1 week and then resumed at reduced dose of 2.5 mg twice daily, continue at this time
- He is DNR. This morning he expressed that he may be ready to move toward comfort care, but did express he is scared about this. will have ongoing discussions with family, but comfort/hospice care would not be unreasonable at this time
- d/w hospitalist via TT
Original Note:
Today's Communication / Plan
-
ongoing discussions with patient and family regarding goals of care
Impression / Plan
-
PCP: Bobbi Salvador MD
CDY: Ivan Amador MD
Impression:
Presented 05/25/2025 shortness of breath, edema, intermittent confusion
Shock - presumed septic shock
Acute respiratory failure on BiPAP with CO2 retention
Acute on chronic heart failure with reduced ejection fraction, Pro BNP 11,400
Severe aortic stenosis
CARLEEN, creatinine 1.6, improving 1.5 on 05/30/2025
Hyponatremia
hyperkalemia on presentation, ramipril stopped
Vitreal hemorrhage R eye requiring one week hold of Eliquis and reduction in dose to 2.5 mg bid, with low vision bilaterally
Paroxysmal Atrial fibrillation
prior PVI 2019
post redo PVI and Watchman device implant 31mm 04/19/25
CAD/CABG 2002
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
Ambulatory dysfunction with frequent falls
NIDDM
Hyperlipidemia
h/o bleeding hemorrhoids
DNR
Echo 05/26/2025: EF 40%. Septal straightening and global hypokinesis with regional variability. Moderately dilated and hypokinetic RV, dilated RA. Dilated left atrium with moderate MR. Severe aortic stenosis with peak/mean gradient 41/25 mmHg and
DEVEN 0.9 cm�. Moderate TR with severe pulmonary hypertension 73 mmHg
MICHAEL 04/19/2025: Successful deployment of Watchman Flex Pro 31 mm device in left atrial appendage. Mild LOLLY device flow, mild to moderate MR, mild AI
Echo 10/21/2023: EF 35 to 40%, mild to moderate MR, mild , 14/9 mmHg, mild TR
Cardiac catheterization 12/07/2019: Patent ALDRICH to LAD, SVG to diagonal, and SVG to OM 2. Severe [place] two-vessel CAD, moderate to severe LV dysfunction, RA 16, PA 58/24, PCWP 22
Plan:
- he presented with SOB and LE edema consistent with acute CHF exacerbation after being started on acetazolamide, with lasix and spironolactone being stopped.
- he is very medically complex
- he was critically ill with shock requiring pressors, able to be weaned off 9/3 AM, however then restarted 9/4PM due to worsening hypotension. currently on levo@3 and midodrine 10mg Q8H
- Cr continues to trend up, 2.3 on 06/04. by [facility] 06/03 patient was relatively will compensated from volume standpoint. CI 1.9, wedge was 19, with severe pulm HTN. breathing appears to be somewhat labored this morning however patient denies SOB.
- he would not be a candidate for TAVR
- He has history of paroxysmal atrial fibrillation with prior PVI in 2019 as well as PVI with Watchman 04/19/2025. He is back in A-fib at present, rate controlled on review of tele. He is noted to have prior history of intolerance to amiodarone.
- He had vitreal hemorrhage of his right eye in mid April 2025 and Eliquis had been held for 1 week and then resumed at reduced dose of 2.5 mg twice daily, continue at this time
- He is DNR. This morning he expressed that he may be ready to move toward comfort care, but did express he is scared about this. will have ongoing discussions with family, but comfort/hospice care would not be unreasonable at this time
- d/w hospitalist via TT
History of Present Illness 05/26/2025:
Sathish is an 84 year old male with PMH of paroxysmal afib s/p PVI 2019 and most recently redo PVI with Watchman 04/19/2025, CAD s/p CABG, chronic HFmrEF, CM, DM, HTN, HLD falls, hemorrhoidal bleeding, iron deficiency anemia who presented to [facility] with
shortness of breath, increased LE edema, and intermittent confusion. Ten days ago he had acute vision loss in his right eye and was seen at [facility] where he was diagnosed with spontaneous retinal hemorrhage secondary to Eliquis. Being worked up
for glaucoma. Eliquis was held for one week (pt kept on ASA 81 mg daily) and Eliquis resumed after one week hold at reduced dose of 2.5 mg twice a day. In addition, he was started on acetazolamide and Lasix and spironolactone were discontinued.
He gained 5 pounds with increased lower extremity edema. He called the cardiology office earlier this week and Lasix was resumed at 40 mg 3 x week with no improvement in symptoms and he therefore presented to [facility] ED on 05/25/2025. Also reports
intermittent confusion. Denies unilateral weakness, numbness/tingling, slurred speech, dysphagia, facial droop.
Progress Note - Microgrinder Operator
Subjective
Date of Service: June 04, 2025
Denies pain or shortness of breath.
Objective
Labs:
06/04/25 03:55
06/04/25 03:55
Labs
Hgb 12.0 g/dL (13.0-18.0) L 06/04/25 03:55
Hct 37.6 % (39.0-52.0) L 06/04/25 03:55
Plt Count 262 10^3/uL (130-400) 06/04/25 03:55
PT 20.0 Sec (11.4-14.6) H 05/28/25 01:33
INR 1.68 05/28/25 01:33
Sodium 141 mmol/L (135-145) 06/04/25 03:55
Potassium 4.2 mmol/L (3.5-5.1) 06/04/25 03:55
BUN 65 mg/dl (9-20) H 06/04/25 03:55
Creatinine 2.3 mg/dL (0.7-1.3) H 06/04/25 03:55
Glucose 167 mg/dl (70-99) H 06/04/25 03:55
Vital Signs and I&O:
Vital Signs
Temp Pulse Resp BP Pulse Ox
97.5 F 85 26 117/73 95
06/04/25 04:23 06/04/25 06:00 06/04/25 06:00 06/04/25 06:00 06/03/25 23:00
Vital Signs
Temp Pulse Resp BP Pulse Ox
97.5 F 85 26 117/73 95
06/04/25 04:23 06/04/25 06:00 06/04/25 06:00 06/04/25 06:00 06/03/25 23:00
Intake & Output
06/01/25 06/02/25 06/03/25 06/04/25
07:59 07:59 07:59 07:59
Intake Total 368.8 / 372.6 363.8 / 363.8 78.9 / 78.9
Output Total 1630 / 1647 922 / 922 250 / 250
Balance -1261.2 / -1274.4 -558.2 / -558.2 -171.1 / -171.1
Physical Exam
Physical Exam
GEN: No distress, awake, alert, oriented x3. chronically ill appearing. on supp O2
HEENT: supple, anicteric, mmm, EOMI
LUNGS: CTA anterolaterally but difficult exam as could not sit up for me to listen posteriorly, no wheezes
CV: Irreg, S1/S2, 2/6 syst LSB
ABD: soft, BS+, NT/ND
EXT: No cyanosis, clubbing, edema
NEURO: Gross non-focal
SKIN: Warm, pink, dry. No rash
[2025-06-04 08:25] LABS: Glucose - Point of Care 152 mg/dl (70-99)
--- NOTE | 2025-06-04 08:25 | W.PN.HOSP.TC ---
Today's Communication/Plan
-
f/w cardiology & ICU doctors recommendations, await decision after they discuss with family
Assessment / Plan
Assessment / Plan
Physical exam:
GEN: No distress, awake, chronically ill looking
HEENT: supple, anicteric, mmm
LUNGS: decreased BS with basal rales
CV: Reg, S1/S2, 1/6 syst LSB, no murmur
ABD: soft, BS+, NT/ND
EXT: edema, peripheral cyanosis noted with cold fingers/toes.
NEURO: lethargic
Psych: calm
#Cardiogenic with absence of source of infection or could be SIRS
Likely SIRS POA with organ dysfunction
Now with multiple organ failure
Persistent shock despite pressure support
Will benefit from comfort care / hospice care
f/w cardiology recommendations
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
with oliguria
Creatinine is going up
# Acute HFrEF exacerbation
- EF of 35 to 40%
s/p IV Lasix but unable to tolerate due to low BP, worsening renal function
-- echo with new Severe
- Holding ramipril & BP, other GDMT due to hypotension, renal failure
- Cardiology consulted, appreciate help
#Elevated troponin
� nonischemic myocardial injury secondary to shock
� No chest pain
#Severe
Not a candidate for TAVR per cardiology
#Right lower extremity edema / erythema, non tender
Blood and urine culture are NGTD
- Finished Empiric IV Zosyn for total of 5 days. Last day 06/01/25.
� MRSA swab - negative
� lower extremity Doppler - negative
- s/p IV Levophed gtt, now back on it due to CMP
#Acute hypercapnic and hypoxic respiratory failure
#Respiratory acidosis
#Leukocytosis, afebrile
# Hyponatremia
#Hypokalemia
#CAD status post CABG
#Paroxysmal atrial fibrillation with Watchman
- Continue Eliquis, patient now on reduced dose due to hemorrhage of right eye
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
- Continue acetazolamide, brimonidine
#Type 2 diabetes
- Hold metformin
- Insulin sliding scale
#Hyperlipidemia
- Continue statin
#History of bleeding hemorrhoid
#Code status changed to DNR
DVT prophylaxis�Eliquis
Cardiac diet
Total time spent to see the patient, examine the patient, review data and lab results, discuss treatment plan with patient, nursing staff around 55 minutes�
Anticipated Discharge: > 48 hours
Subjective/Interval History
-
Date of Service: June 04, 2025
Pt reports feeling tired and not much appetite, he denies chest pain
Objective Data
-
Labs:
Laboratory Results
06/04/25
03:55
WBC 14.0 H
Hgb 12.0 L
Hct 37.6 L
Plt Count 262
Sodium 141
Potassium 4.2
Chloride 104
Carbon Dioxide 29
BUN 65 H
Creatinine 2.3 H
Glucose 167 H
Calcium 9.3
Total Bilirubin 0.9
AST 36
ALT 58 H
Alkaline Phosphatase 107
Vital Signs:
Vital Signs
Temp Pulse Resp BP Pulse Ox
97.5 F 85 26 117/73 95
06/04/25 04:23 06/04/25 06:00 06/04/25 06:00 06/04/25 06:00 06/03/25 23:00
I&O
06/03/25 06/04/25 06/05/25
06:59 06:59 06:59
Intake Total 78.9 / 78.9
Output Total 250 / 250
Balance -171.1 / -171.1
[2025-06-04] MEDS: NOVOLOG FLEXPEN-MODERATE RESISTANCE 1 UNITS SC ×2 (08:27→17:21)
[2025-06-04] MEDS: ALPHAGAN 0.2% EYE DROPS RIGHT EYE ×2 (08:28→15:50)
[2025-06-04] MEDS: CYCLOGYL 1% EYE DROPS RIGHT EYE ×2 (08:28→21:31)
[2025-06-04] MEDS: PRED FORTE 1% EYE DROPS RIGHT EYE ×4 (08:29→23:50)
[2025-06-04] MEDS: KCL PO (08:29)
[2025-06-04] MEDS: NON-FORMULARY ITEM RIGHT EYE ×3 (08:29→23:50)
[2025-06-04] MEDS: COREG 3.125 MG PO ×2 (08:40→20:24)
[2025-06-04] MEDS: ELIQUIS 2.5 MG PO ×2 (08:41→20:25)
[2025-06-04] MEDS: DESENEX/MITRAZOL/ZEASORB 1 APPLIC TOPICAL (08:53)
[2025-06-04] MEDS: LASIX PO (09:39)
--- NOTE | 2025-06-04 11:23 | W.PN.INTV ---
Today's Communication / Plan
Recommendations
Diuresis per cardiology
Norepinephrine as needed
Comfort a priority
Goals of care discussion ongoing
Assessment
-
84-year-old male with previous history of CAD status post CABG, congestive heart failure, atrial fibrillation presenting to ER for shortness of breath over the past week. He was recently diagnosed with spontaneous retinal hemorrhage following
acute vision loss in the right eye, felt to be due to Eliquis which was decreased to 2.5 mg twice daily. He was recently changed on his outpatient diuretic management and gained 5 pounds with increased lower extremity edema. Adm to on 05/25 for
Acute HF. Overnight 05/27/25, he was notably hypotensive and placed on pressors, admitted to ICU.
Acute heart failure exacerbation
Acute hypercarbic respiratory failure on BiPAP
Leukocytosis
CARLEEN
Hyponatremia
Hyperglycemia
Elevated troponins
Septic shock on pressors
Urinary tract infection
Severe , severe PH on ECHO
Conditions present prior to admission:
Restrictive lung disease, followed at [place] by Dr. Veliz (Pul)
PFT 01/2025: FEV1 1.04 L 42%, FVC 1.53 L 46%, ratio 68-severe obstruction, TLC 3.03 43%, DLCO 33%-severe restriction, severe diffusion
Suspect due to combination of congestive heart failure and severe kyphosis
Insomnia
Atrial fibrillation s/p DCCV x 2/ablation
GERD
Chronic loculated left basilar pleural effusion on prior imaging
Atrial fibrillation
CHF
Diabetes
Peripheral edema
CAD s/p by-pass 2002
Cataracts bilateral
Plan
Respiratory status improved somewhat with diuresis
Continue supplemental oxygen as needed-92% on room air
BiPAP if needed
Nebulizers if needed-currently not bronchospastic
Aspiration precautions
Diuresis continues as tolerated--- -700 mL / 48 hours
Monitor renal function, electrolytes, intake/output, lower extremity edema and weight
Replace electrolytes as needed
Cardiology following-correspondence reviewed-medically complex,
Not a candidate for TAVR
Pressors as needed-currently on norepinephrine-attempt to wean
CARLEEN present, likely ATN-stable
Void trials
Follow urine output, critical I/Os
Replete electrolytes as needed
Fever and increased WBC on presentation, suspect underlying UTI
Finished a course of antibiotics
Follow fever trend, WBC count
DVT prophylaxis-on Eliquis
Nutrition
Early mobilization/PT/OT
Comfort a priority-hospice and comfort discussions ongoing
Family discussions-patient now DNR
Dr. Calles spoke with patient and subsequently on multidisciplinary rounds on 05/31/2025-patient 'wants to ' and is leaning towards comfort and thus hospice will be consulted-not yet ready for withdrawal of supporting care
Critical care statement: A total of 40 minutes of critical care time was provided for this patient today. This includes management of unstable vital signs, evaluation of the patient at bedside, reviewing the patient�s pertinent medical records
including radiographs, pressor management, microbiology, laboratory evaluations, and��discussion with primary team, consultants, pharmacy, nutrition, physical therapy, case management, charge nurse, critical care nursing, and respiratory therapy.
Diagnostic Data
Chest X-Ray: 05/28/25- Continued improvement of aeration at the bilateral lung bases with mild residual bibasilar atelectasis and/or pneumonia. Poor overall lung volumes
CT Scan: CHEST 08/18/20-Essentially complete resolution of bilateral pneumonia. Resolution of left pleural effusion. No acute CT findings in the chest
Echo: 05/26/25-1. Normal left ventricular size and wall thickness with septal straightening and global hypokinesis with regional variability, EF 40%.
2. Thickened mitral leaflets, moderate eccentric mitral regurgitation, equivocal mitral valve prolapse in some views and dilated left atrium.
3. Severe aortic stenosis by 2D imaging, peak and mean gradients 41/25 mmHg, aortic valve area 0.9 cm 2, dimensionless index 0.2.
4. Moderately dilated and hypokinetic right ventricle, dilated right atrium, moderate tricuspid regurgitation and severe pulmonary hypertension, 73 mmHg systolic.
Reports and relevant images were personally reviewed.
Subjective Dataa
Subjective Data
Date of Service:
Date of Service: June 04, 2025
Chief Complaint: Security Public Safety Officer Follow Up and Pulmonary Follow Up
Subjective:
Patient transferred to ICU with difficulties in BP readings, now improved, on steady doses of norepinephrine, patient does not complain of shortness of breath, chest pain or abdominal pain
Review of Systems
General: Other ( per HPI)
Objective Data
Data Reviewed
Vital Signs / I&O / Oxygen:
Vital Signs
Temp Pulse Resp BP Pulse Ox
97.6 F 90 25 110/71 98
06/04/25 08:00 06/04/25 10:00 06/04/25 10:00 06/04/25 10:00 06/04/25 08:00
Intake and Output
06/03/25 06/04/25 06/05/25
06:59 06:59 06:59
Intake Total 78.9 / 90.2 48.9 / 48.9
Output Total 250 / 250
Balance -171.1 / -159.8 48.9 / 48.9
SaO2 98
Nasal Cannula flow liters per 2
minute
Physical Exam
General: Respiratory Distress (n), Comfortable and Other (NAD)
HEENT: Normocephalic, Anicteric and Moist Mucous Membranes
Cardiovascular: Regular Rhythm
Respiratory: Clear and Non-Labored Respirations
GI: Soft, Non Distended and Non Tender
Neurology: Awake, Alert and No Motor Deficits
Skin: Warm, Good Color, Cyanosis and Jaundice (n)
Labs/Micro/Reports
Lab Data
06/04/25 03:55
06/04/25 03:55
Microbiology
05/28/25 00:31 Blood/Venous Blood Culture - Final
No Growth - Final Report
05/27/25 23:04 Blood/Venous Blood Culture - Final
No Growth - Final Report
[2025-06-04 11:56] LABS: Glucose - Point of Care 135 mg/dl (70-99)
[2025-06-04] MEDS: NOVOLOG FLEXPEN-MODERATE RESISTANCE SC (12:03)
--- NOTE | 2025-06-04 12:20 | PTCARENOTE ---
Pt downgraded to IMU, titrating Levophed gtts to keep SBP >90. Pt drowsy, but interactive with family members at bedside. Monitor Afib. Repositioned frequently.
--- NOTE | 2025-06-04 15:32 | W.PN.UPDATE ---
Update Note
Progress Note Update
30-minute discussion with family including , son and daughter as well as son-in-law. Discussed goals of care in detail including current therapies, changing goals of care to comfort, DNR, and hospice options. The family is again willing to
meet with the hospice team to discuss outpatient versus inpatient hospice options. Per his son, Sathish himself may want to return home and I encouraged further discussions among family. I will also have another discussion with Sathish regarding his
wishes tomorrow morning. I communicated with nursing and intensive critical care team their wishes and acknowledgment and acceptance of change to comfort care. He is now off pressor support and we can focus on diuresis for any air hunger as well
as antianxiety and pain medications as necessary. Currently he is having discussions with his grandchildren at the bedside while we were having the family discussion. I took time to answer all questions
[2025-06-04 17:13] LABS: Glucose - Point of Care 170 mg/dl (70-99)
--- NOTE | 2025-06-04 18:10 | PTCARENOTE ---
Levophed off since 1400, SBP 90-100's. Multiple family members in to visit throughout shift. Updated.
[2025-06-04] MEDS: DESENEX/MITRAZOL/ZEASORB TOPICAL (21:31)
[2025-06-04 22:09] LABS: Glucose - Point of Care 145 mg/dl (70-99)
[2025-06-04] MEDS: MELATONIN PO (23:50)
[2025-06-05] VITALS (20 sets, daily range): BP systolic 90–118; BP diastolic 50–79; BMI 25.7
[2025-06-05] MEDS: ALPHAGAN 0.2% EYE DROPS RIGHT EYE ×3 (00:25→22:57)
[2025-06-05 04:07] LABS: Hematocrit 34.8 % (39.0-52.0); Hemoglobin 11.1 g/dL (13.0-18.0); Mean Corp Hgb Conc. 31.9 g/dL (33.0-37.0); Mean Corpuscular Volume 99.7 fL (80.0-94.0); Platelet Count 217 10^3/uL (130-400); Red Cell Dist. Width 14.9 % (11.5-14.5)
[2025-06-05 04:33] LABS: Blood Urea Nitrogen 71 mg/dl (9-20); Calcium 9.4 mg/dl (8.4-10.2); Carbon Dioxide 32 mmol/L (22-30); Chloride 103 mmol/L (98-107); Estimated Creatinine Clearance 25 ml/min; Glucose 158 mg/dl (70-99); Potassium 4.0 mmol/L (3.5-5.1); Sodium 138 mmol/L (135-145); eGFR 32.10
[2025-06-05] MEDS: COREG 3.125 MG PO ×2 (07:42→20:58)
[2025-06-05] MEDS: ELIQUIS 2.5 MG PO ×2 (07:42→20:59)
[2025-06-05] MEDS: DESENEX/MITRAZOL/ZEASORB 1 APPLIC TOPICAL ×2 (07:42→21:00)
[2025-06-05] MEDS: NOVOLOG FLEXPEN-MODERATE RESISTANCE 1 UNITS SC ×2 (07:47→17:30)
[2025-06-05] MEDS: CYCLOGYL 1% EYE DROPS 1 DROP RIGHT EYE (07:48)
[2025-06-05] MEDS: PRED FORTE 1% EYE DROPS 1 DROP RIGHT EYE ×2 (07:48→13:14)
[2025-06-05] MEDS: KCL PO (07:48)
[2025-06-05] MEDS: ALPHAGAN 0.2% EYE DROPS 1 DROP RIGHT EYE (07:48)
[2025-06-05] MEDS: NON-FORMULARY ITEM RIGHT EYE ×3 (07:50→21:00)
[2025-06-05 07:57] LABS: Glucose - Point of Care 173 mg/dl (70-99)
[2025-06-05] MEDS: LASIX 40 MG PO (08:23)
--- NOTE | 2025-06-05 08:32 | W.PN.HOSP.TC ---
Today's Communication/Plan
-
.
Assessment / Plan
Assessment / Plan
Physical exam:
GEN: No distress, awake, chronically ill looking
HEENT: supple, anicteric, mmm
LUNGS: decreased BS with basal rales
CV: Reg, S1/S2, 1/6 syst LSB, no murmur
ABD: soft, BS+, NT/ND
EXT: edema, peripheral cyanosis noted with cold fingers/toes.
NEURO: lethargic
Psych: calm
#Cardiogenic with absence of source of infection or could be SIRS
Likely SIRS POA with organ dysfunction
Now with multiple organ failure
Persistent shock despite pressure support
Will benefit from comfort care / hospice care
f/w cardiology recommendations
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
More urine output
Creatinine is around 2
# Acute HFrEF exacerbation
- EF of 35 to 40%
s/p IV Lasix but unable to tolerate due to low BP, worsening renal function
-- echo with new Severe
- Holding ramipril & BP, other GDMT due to hypotension, renal failure
- Cardiology consulted, appreciate help
#Elevated troponin
� nonischemic myocardial injury secondary to shock
� No chest pain
#Severe
Not a candidate for TAVR per cardiology
#Right lower extremity edema / erythema, non tender
Blood and urine culture are NGTD
- Finished Empiric IV Zosyn for total of 5 days. Last day 06/01/25.
� MRSA swab - negative
� lower extremity Doppler - negative
- s/p IV Levophed gtt, now back on it due to CMP
#Acute hypercapnic and hypoxic respiratory failure
#Respiratory acidosis
Weaning down oxygen
#Leukocytosis, afebrile
# Hyponatremia
#Hypokalemia
#CAD status post CABG
#Paroxysmal atrial fibrillation with Watchman
- Continue Eliquis, patient now on reduced dose due to hemorrhage of right eye
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
- Continue acetazolamide, brimonidine
c/w eye drops
#Type 2 diabetes
- Hold metformin
- Insulin sliding scale
#Hyperlipidemia
- Continue statin
#History of bleeding hemorrhoid
#Code status changed to DNR
DVT prophylaxis�Eliquis
Cardiac diet
Total time spent to see the patient, examine the patient, review data and lab results, discuss treatment plan with patient, nursing staff around 55 minutes�
Anticipated Discharge: > 48 hours
Subjective/Interval History
-
Date of Service: June 05, 2025
No chest pain
No sob
Objective Data
-
Labs:
Laboratory Results
06/05/25
03:56
WBC 12.4 H
Hgb 11.1 L
Hct 34.8 L
Plt Count 217
Sodium 138
Potassium 4.0
Chloride 103
Carbon Dioxide 32 H
BUN 71 H
Creatinine 2.0 H
Glucose 158 H
Calcium 9.4
Vital Signs:
Vital Signs
Temp Pulse Resp BP Pulse Ox
97 F 83 29 95/69 91
06/05/25 08:00 06/05/25 08:00 06/05/25 08:00 06/05/25 08:00 06/05/25 08:00
I&O
06/04/25 06/05/25 06/06/25
06:59 06:59 06:59
Intake Total 78.9 / 90.2 60.2 / 60.2
Output Total 250 / 250 900 / 900
Balance -171.1 / -159.8 -839.8 / -839.8
--- NOTE | 2025-06-05 10:39 | W.PN.CARDCBS ---
Today's Communication / Plan
-
End-of-life discussion
Pressors are weaned off
The remainder of his cardiac medications can be continued for comfort
Hospice evaluation
I have no objection to moving him to a room outside of the ICU
Impression / Plan
-
PCP: Bobbi Salvador MD
CDY: Ivan Amador MD
Impression:
Presented 05/25/2025 shortness of breath, edema, intermittent confusion
Shock - presumed septic shock
Acute respiratory failure on BiPAP with CO2 retention
Acute on chronic heart failure with reduced ejection fraction, Pro BNP 11,400
Severe aortic stenosis
CARLEEN, creatinine 1.6, improving 1.5 on 05/30/2025
Hyponatremia
hyperkalemia on presentation, ramipril stopped
Vitreal hemorrhage R eye requiring one week hold of Eliquis and reduction in dose to 2.5 mg bid, with low vision bilaterally
Paroxysmal Atrial fibrillation
prior PVI 2019
post redo PVI and Watchman device implant 31mm 04/19/25
CAD/CABG 2002
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
Ambulatory dysfunction with frequent falls
NIDDM
Hyperlipidemia
h/o bleeding hemorrhoids
DNR
Echo 05/26/2025: EF 40%. Septal straightening and global hypokinesis with regional variability. Moderately dilated and hypokinetic RV, dilated RA. Dilated left atrium with moderate MR. Severe aortic stenosis with peak/mean gradient 41/25 mmHg and
DEVEN 0.9 cm�. Moderate TR with severe pulmonary hypertension 73 mmHg
MICHAEL 04/19/2025: Successful deployment of Watchman Flex Pro 31 mm device in left atrial appendage. Mild LOLLY device flow, mild to moderate MR, mild AI
Echo 10/21/2023: EF 35 to 40%, mild to moderate MR, mild , 14/9 mmHg, mild TR
Cardiac catheterization 12/07/2019: Patent ALDRICH to LAD, SVG to diagonal, and SVG to OM 2. Severe [place] two-vessel CAD, moderate to severe LV dysfunction, RA 16, PA 58/24, PCWP 22
Plan:
- Long discussion with family yesterday supportive of DNR/DNI and moving towards comfort measures. They are willing to meet with hospice to discuss options. Not all family are in complete agreement about the multitude of options and choices
regarding end-of-life care but all agreed to meeting with hospice and focusing on comfort.
- I would be supportive of not resuming pressors now that they are off. Primary team and nursing are having ongoing discussions regarding end-of-life goals
- Reviewed labs
- he would not be a candidate for TAVR
- He has history of paroxysmal atrial fibrillation with prior PVI in 2019 as well as PVI with Watchman 04/19/2025. He is back in A-fib at present, rate controlled on review of tele. He is noted to have prior history of intolerance to amiodarone.
- He had vitreal hemorrhage of his right eye in mid April 2025 and Eliquis had been held for 1 week and then resumed at reduced dose of 2.5 mg twice daily, continue at this time
- He is DNR. This morning he expressed that he may be ready to move toward comfort care, but did express he is scared about this. will have ongoing discussions with family, but comfort/hospice care would not be unreasonable at this time
- He communicated to me this morning that he would like to return home
History of Present Illness 05/26/2025:
Sathish is an 84 year old male with PMH of paroxysmal afib s/p PVI 2019 and most recently redo PVI with Watchman 04/19/2025, CAD s/p CABG, chronic HFmrEF, CM, DM, HTN, HLD falls, hemorrhoidal bleeding, iron deficiency anemia who presented to [facility] with
shortness of breath, increased LE edema, and intermittent confusion. Ten days ago he had acute vision loss in his right eye and was seen at [facility] where he was diagnosed with spontaneous retinal hemorrhage secondary to Eliquis. Being worked up
for glaucoma. Eliquis was held for one week (pt kept on ASA 81 mg daily) and Eliquis resumed after one week hold at reduced dose of 2.5 mg twice a day. In addition, he was started on acetazolamide and Lasix and spironolactone were discontinued.
He gained 5 pounds with increased lower extremity edema. He called the cardiology office earlier this week and Lasix was resumed at 40 mg 3 x week with no improvement in symptoms and he therefore presented to [facility] ED on 05/25/2025. Also reports
intermittent confusion. Denies unilateral weakness, numbness/tingling, slurred speech, dysphagia, facial droop.
Progress Note - Java Sybase Developer
Subjective
Date of Service: June 05, 2025
Feels a little better today
Objective
Labs:
06/05/25 03:56
06/05/25 03:56
Labs
Hgb 11.1 g/dL (13.0-18.0) L 06/05/25 03:56
Hct 34.8 % (39.0-52.0) L 06/05/25 03:56
Plt Count 217 10^3/uL (130-400) 06/05/25 03:56
PT 20.0 Sec (11.4-14.6) H 05/28/25 01:33
INR 1.68 05/28/25 01:33
Sodium 138 mmol/L (135-145) 06/05/25 03:56
Potassium 4.0 mmol/L (3.5-5.1) 06/05/25 03:56
BUN 71 mg/dl (9-20) H 06/05/25 03:56
Creatinine 2.0 mg/dL (0.7-1.3) H 06/05/25 03:56
Glucose 158 mg/dl (70-99) H 06/05/25 03:56
Vital Signs and I&O:
Vital Signs
Temp Pulse Resp BP Pulse Ox
97 F 78 26 95/62 98
06/05/25 08:00 06/05/25 10:00 06/05/25 10:00 06/05/25 09:00 06/05/25 09:00
Vital Signs
Temp Pulse Resp BP Pulse Ox
97 F 78 26 95/62 98
06/05/25 08:00 06/05/25 10:00 06/05/25 10:00 06/05/25 09:00 06/05/25 09:00
Intake & Output
06/03/25 06/04/25 06/05/25 06/06/25
06:59 06:59 06:59 06:59
Intake Total 78.9 / 90.2 60.2 / 60.2
Output Total 250 / 250 900 / 900
Balance -171.1 / -159.8 -839.8 / -839.8
Physical Exam
Physical Exam
����Physical Exam
���������������������General:��no apparent distress, not acutely ill
���������������������������Neck:��supple. no meningeal signs. normal psoterior pharynx
������������������������
���������������������������Heart:�Irregularly irregular, no murmur. equal radial pulses.
��������������������������Lungs: ��no acute respiratory distress. clear bilaterally
����������������������Abdomen:�normal bowel sounds. not tender. no CVAT
��������������������������Neuro:��alert and oriented. no focal neurological deficits
������������������������������Skin: ��no rash
�����������������������Psychiatric:�well kept. interactive and cooperative
�����������������������Extremities:��no edema. no calf tenderness. negative homans. good distal pulses
��
�
--- NOTE | 2025-06-05 11:33 | CM ---
Patient's family requested to speak with platform material handler manager head control clerk to discuss hospice options
Notified Attending and requested CM Consult for Hospice
platform material handler manager race relations professor notified via text; she agreed to call family
[2025-06-05 11:54] LABS: Glucose - Point of Care 149 mg/dl (70-99)
[2025-06-05] MEDS: NOVOLOG FLEXPEN-MODERATE RESISTANCE SC (11:55)
--- NOTE | 2025-06-05 11:57 | CHAP ---
ICU staff suggested family might appreciate a visit. Most family members had stepped out; Mr. Cannon was sitting in the chair with his granddaughter at his side. Emotional and spiritual support offered, assurance of our on-going availability given.
--- NOTE | 2025-06-05 13:23 | PTCARENOTE ---
Spoke with pt's son regarding plan of care- comfort care/hospice. Sons stated they have a family phone call with hospice at 1300. Pt HFV, bladder scanned 350. Pt straight cath >24hrs d/t retention, santana placed. Pt back to bed with max assist.
--- NOTE | 2025-06-05 13:35 | HOSPNOTE ---
At the request of the family had a discussion via telephone with patient's Esme, his brother Gabriele and other family members. Discussed Hospice philosophy and potential plan of care. They are clear that they do not wish to take patient home
and would prefer to say in the hospital until he passes. Also discussed comfort care and the potential for the patient to move to 2N. The family would like to have some time to make their decision. Hospice will follow and make contact tomorrow
06/06 if the family wishes.
[2025-06-05 17:05] LABS: Glucose - Point of Care 173 mg/dl (70-99)
[2025-06-05] MEDS: PRED FORTE 1% EYE DROPS RIGHT EYE ×2 (17:27→21:21)
--- NOTE | 2025-06-05 17:35 | PTCARENOTE ---
As per pt's family, they spoke with hospice and are considering transition to hospice/comfort tomorrow. They also stated that they would not like pressors restarted if he were to need them at this time, Dr. Vyas notified and aware.
--- NOTE | 2025-06-05 20:27 | PTCARENOTE ---
assumed care, pt disoriented to time, forgetful, denies pain, blind in R eye, L eyesight impaired, kyphotic, Afib on the monitor c PVCs, doppler pedals, +3 pedals, lungs diminished c shallow breaths, 99% on 1L, BSx4, santana c yellow output,
prophylactic sacral and back foam, R DL PICC, family @ bedside and updated, explained she doesn't want the pt to receive his eye drops, call ervin within reach, otherwise refer to documentation
[2025-06-05] MEDS: MELATONIN 5 MG PO (20:59)
[2025-06-05] MEDS: CYCLOGYL 1% EYE DROPS RIGHT EYE (21:00)
[2025-06-05 21:49] LABS: Glucose - Point of Care 175 mg/dl (70-99)
--- NOTE | 2025-06-05 21:50 | PTCARENOTE ---
BG 175 MOTORMAN/WOMAN notified, no new orders @ this time
[2025-06-06] VITALS (13 sets, daily range): BP systolic 97–143; BP diastolic 52–89; BMI 26.0; BMI 25.8
[2025-06-06 08:09] LABS: Glucose - Point of Care 127 mg/dl (70-99)
[2025-06-06] MEDS: NOVOLOG FLEXPEN-MODERATE RESISTANCE SC (08:11)
[2025-06-06] MEDS: COREG 3.125 MG PO ×2 (08:24→21:35)
[2025-06-06] MEDS: ELIQUIS PO (08:24)
[2025-06-06] MEDS: LASIX 40 MG PO (08:24)
[2025-06-06] MEDS: KCL 20 MEQ PO (08:24)
[2025-06-06] MEDS: NON-FORMULARY ITEM RIGHT EYE ×3 (08:25→21:27)
[2025-06-06] MEDS: ALPHAGAN 0.2% EYE DROPS RIGHT EYE ×3 (08:25→23:23)
[2025-06-06] MEDS: CYCLOGYL 1% EYE DROPS RIGHT EYE ×2 (08:25→21:27)
[2025-06-06] MEDS: PRED FORTE 1% EYE DROPS RIGHT EYE ×4 (08:26→21:27)
[2025-06-06] MEDS: DESENEX/MITRAZOL/ZEASORB 1 APPLIC TOPICAL ×2 (08:26→21:36)
[2025-06-06] MEDS: ELIQUIS 2.5 MG PO ×2 (08:33→21:36)
--- NOTE | 2025-06-06 09:32 | PTCARENOTE ---
Rec'd care of patient at 0700. AAOx3. VSS. Afib on tele. Rate controlled. Pulse ox 98% on 1L nc. Lung sounds shallow, diminished throughout. Crackles 1/[address] up. Tachypneic. BEAVER. +BS. Perez in place for acute retention. Left DL PICC capped. CHG bath
provided and repositioned for comfort.
--- NOTE | 2025-06-06 09:35 | W.PN.CARDCBS ---
Today's Communication / Plan
-
Blood pressure okay off pressors
Patient considering comfort care
Impression / Plan
-
PCP: Bobbi Salvador MD
CDY: Ivan Amador MD
Impression:
Presented 05/25/2025 shortness of breath, edema, intermittent confusion
Shock - presumed septic shock
Acute respiratory failure on BiPAP with CO2 retention
Acute on chronic heart failure with reduced ejection fraction, Pro BNP 11,400
Severe pulm hypertension on right heart catheterization 06/03/2025
Severe aortic stenosis
CARLEEN, creatinine 2.0 on 06/06/2025
hyperkalemia on presentation, ramipril stopped
Vitreal hemorrhage R eye requiring one week hold of Eliquis and reduction in dose to 2.5 mg bid, with low vision bilaterally
Paroxysmal Atrial fibrillation
prior PVI 2019
post redo PVI and Watchman device implant 31mm 04/19/25
CAD/CABG 2002
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
Ambulatory dysfunction with frequent falls
NIDDM
Hyperlipidemia
h/o bleeding hemorrhoids
DNR
Echo 05/26/2025: EF 40%. Septal straightening and global hypokinesis with regional variability. Moderately dilated and hypokinetic RV, dilated RA. Dilated left atrium with moderate MR. Severe aortic stenosis with peak/mean gradient 41/25 mmHg and
DEVEN 0.9 cm�. Moderate TR with severe pulmonary hypertension 73 mmHg
MICHAEL 04/19/2025: Successful deployment of Watchman Flex Pro 31 mm device in left atrial appendage. Mild LOLLY device flow, mild to moderate MR, mild AI
Echo 10/21/2023: EF 35 to 40%, mild to moderate MR, mild , 14/9 mmHg, mild TR
Cardiac catheterization 12/07/2019: Patent ALDRICH to LAD, SVG to diagonal, and SVG to OM 2. Severe [place] two-vessel CAD, moderate to severe LV dysfunction, RA 16, PA 58/24, PCWP 22
Right heart catheterization 06/03/2025: Pulmonary pressures wedge pressure 19, PA 79/33
Plan:
Hypotension has resolved and is now off of pressors
Renal insufficiency has improved with creatinine of 2.0
Remains on Eliquis status post watchman in March 2025. This should be able to be discontinued after 90 days?
Patient is considering hospice/comfort care
History of Present Illness 05/26/2025:
Sathish is an 84 year old male with PMH of paroxysmal afib s/p PVI 2019 and most recently redo PVI with Watchman 04/19/2025, CAD s/p CABG, chronic HFmrEF, CM, DM, HTN, HLD falls, hemorrhoidal bleeding, iron deficiency anemia who presented to [facility] with
shortness of breath, increased LE edema, and intermittent confusion. Ten days ago he had acute vision loss in his right eye and was seen at [facility] where he was diagnosed with spontaneous retinal hemorrhage secondary to Eliquis. Being worked up
for glaucoma. Eliquis was held for one week (pt kept on ASA 81 mg daily) and Eliquis resumed after one week hold at reduced dose of 2.5 mg twice a day. In addition, he was started on acetazolamide and Lasix and spironolactone were discontinued.
He gained 5 pounds with increased lower extremity edema. He called the cardiology office earlier this week and Lasix was resumed at 40 mg 3 x week with no improvement in symptoms and he therefore presented to [facility] ED on 05/25/2025. Also reports
intermittent confusion. Denies unilateral weakness, numbness/tingling, slurred speech, dysphagia, facial droop.
Progress Note - Painter Decorator
Subjective
Date of Service: June 06, 2025
No complaints
Objective
Labs:
06/05/25 03:56
06/05/25 03:56
Labs
Hgb 11.1 g/dL (13.0-18.0) L 06/05/25 03:56
Hct 34.8 % (39.0-52.0) L 06/05/25 03:56
Plt Count 217 10^3/uL (130-400) 06/05/25 03:56
PT 20.0 Sec (11.4-14.6) H 05/28/25 01:33
INR 1.68 05/28/25 01:33
Sodium 138 mmol/L (135-145) 06/05/25 03:56
Potassium 4.0 mmol/L (3.5-5.1) 06/05/25 03:56
BUN 71 mg/dl (9-20) H 06/05/25 03:56
Creatinine 2.0 mg/dL (0.7-1.3) H 06/05/25 03:56
Glucose 158 mg/dl (70-99) H 06/05/25 03:56
Vital Signs and I&O:
Vital Signs
Temp Pulse Resp BP Pulse Ox
97.5 F 80 19 115/82 98
06/06/25 08:00 06/06/25 08:33 06/06/25 08:00 06/06/25 08:33 06/06/25 08:30
Vital Signs
Temp Pulse Resp BP Pulse Ox
97.5 F 80 19 115/82 98
06/06/25 08:00 06/06/25 08:33 06/06/25 08:00 06/06/25 08:33 06/06/25 08:30
Intake & Output
06/04/25 06/05/25 06/06/25 06/07/25
06:59 06:59 06:59 06:59
Intake Total 78.9 / 90.2 60.2 / 60.2 240 / 240
Output Total 250 / 250 900 / 900 900 / 900
Balance -171.1 / -159.8 -839.8 / -839.8 -660 / -660
Physical Exam
Physical Exam
General: Well developed, well nourished in NAD.
Neck: Supple, no JVD, HJR, carotids +2 B/L, no bruits bilaterally.
Heart: Non displaced PMI, irregular, no murmurs, No S3, S4, no rubs.
Lungs: Scattered rhonchi
Extremities: No clubbing, cyanosis or edema bilaterally.
Neuro: Grossly nonfocal, awake, alert and oriented x3.
--- NOTE | 2025-06-06 11:45 | PTCARENOTE ---
Patient assisted oob to chair x2 RW.
[2025-06-06 12:06] LABS: Glucose - Point of Care 254 mg/dl (70-99)
--- NOTE | 2025-06-06 13:27 | HOSPNOTE ---
Spoke with family again about hospice and the philosophy. The patient wishes to go home with hospice the family is pushing for a facility placement with hospice close to their home in [place]. The family was also requesting that the patient
be able to stay here for inpatient hospice, however at this point does not meet hospice inpatient criteria. The family is going to talk more this evening and I will follow up tomorrow.
[2025-06-06] MEDS: NOVOLOG FLEXPEN-MODERATE RESISTANCE 1 UNITS SC (13:51)
[2025-06-06 14:03] LABS: Glucose - Point of Care 198 mg/dl (70-99)
--- NOTE | 2025-06-06 14:21 | CM ---
software sales manager reviewed patient's chart and spoke with patient and spouse along with nursing, per hospice, family to review options again, family preservation caseworker met with patient's spouse and provided a list of Medicare.gov facilities to family, patient and
spouse along with rest of family to review for possible skilled placement.
Plan; Possible skilled placement will need PT/OT notes.
--- NOTE | 2025-06-06 15:48 | W.PN.HOSP.TC ---
Today's Communication/Plan
-
anticipate transitioning to hospice
Assessment / Plan
Assessment / Plan
Physical exam:
GEN: No distress, awake, chronically ill looking
HEENT: supple, anicteric, mmm
LUNGS: decreased BS with basal rales
CV: Reg, S1/S2, 1/6 syst LSB, no murmur
ABD: soft, BS+, NT/ND
EXT: edema, peripheral cyanosis noted with cold fingers/toes.
NEURO: lethargic
Psych: calm
#Cardiogenic with absence of source of infection or could be SIRS
Likely SIRS POA with organ dysfunction
Now with multiple organ failure
Persistent shock despite pressure support
Will benefit from comfort care / hospice care
f/w cardiology recommendations
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
More urine output
Creatinine is around 2
# Acute HFrEF exacerbation
- EF of 35 to 40%
s/p IV Lasix but unable to tolerate due to low BP, worsening renal function
-- echo with new Severe
- Holding ramipril & BP, other GDMT due to hypotension, renal failure
- Cardiology consulted, appreciate help
#Elevated troponin
� nonischemic myocardial injury secondary to shock
� No chest pain
#Severe
Not a candidate for TAVR per cardiology
#Right lower extremity edema / erythema, non tender
Blood and urine culture are NGTD
- Finished Empiric IV Zosyn for total of 5 days. Last day 06/01/25.
� MRSA swab - negative
� lower extremity Doppler - negative
- s/p IV Levophed gtt
#Acute hypercapnic and hypoxic respiratory failure
#Respiratory acidosis
Weaning down oxygen
#Leukocytosis, afebrile
# Hyponatremia
#Hypokalemia
#CAD status post CABG
#Paroxysmal atrial fibrillation with Watchman
- Continue Eliquis, patient now on reduced dose due to hemorrhage of right eye
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
- Continue acetazolamide, brimonidine
c/w eye drops
#Type 2 diabetes
- Hold metformin
- Insulin sliding scale
#Hyperlipidemia
- Continue statin
#History of bleeding hemorrhoid
#Code status changed to DNR
DVT prophylaxis�Eliquis
Cardiac diet
Anticipated Discharge: Within 24 hours
Subjective/Interval History
-
Date of Service: June 06, 2025
patient entertaining hospice; sitting in chair no acute events overnight
Objective Data
-
Vital Signs:
Vital Signs
Temp Pulse Resp BP Pulse Ox
97.4 F 84 31 105/69 96
06/06/25 12:00 06/06/25 15:33 06/06/25 15:31 06/06/25 15:33 06/06/25 12:30
I&O
06/05/25 06/06/25 06/07/25
06:59 06:59 06:59
Intake Total 60.2 / 60.2 240 / 240
Output Total 900 / 900 900 / 900 550 / 550
Balance -839.8 / -839.8 -660 / -660 -550 / -550
Review of Systems
-
History Source: Patient
All other systems: Not reviewed unless documented
Physical Exam
-
General: Well Developed and No Apparent Distress
HEENT: Normocephalic, Atraumatic and Moist Mucous Membranes
Respiratory: Clear to Auscultation
Cardiac: Regular Rhythm and S1/S2; Negative Murmur, Rub or Gallop
GI: Soft, Nontender, Nondistended and Normal Bowel Sounds; Negative Organomegaly
Rectal: Deferred by Provider
Musculoskeletal: No Clubbing, No Cyanosis and No Edema
Skin: Negative Rash
Neuro: Awake, Alert, Oriented, AO x 3 and Nonfocal/Grossly Intact
Data Reviewed
-
Diagnostic Radiology: Report Reviewed by me
Labs: Labs Reviewed by me
--- NOTE | 2025-06-06 16:04 | PTCARENOTE ---
Patient downgraded to tele level. Remains oob in chair. Appetite good throughout shift. VSS.
[2025-06-06 17:05] LABS: Glucose - Point of Care 227 mg/dl (70-99)
[2025-06-06] MEDS: NOVOLOG FLEXPEN-MODERATE RESISTANCE 3 UNITS SC (17:14)
--- NOTE | 2025-06-06 18:33 | PTCARENOTE ---
Patient assisted back to bed. No complaints. Left DL PICC removed by VAT.
--- NOTE | 2025-06-06 20:02 | PTCARENOTE ---
assumed care, received report from day RN, gave report to 2 north RN, family updated and pt transferred with PCT.
[2025-06-06] MEDS: MELATONIN 5 MG PO (21:35)
[2025-06-07] MEDS: MORPHINE SULFATE 2 MG IV (03:21)
[2025-06-07 07:20] VITALS: BP 124/73
[2025-06-07 07:25] LABS: Glucose - Point of Care 162 mg/dl (70-99)
[2025-06-07] MEDS: ALPHAGAN 0.2% EYE DROPS RIGHT EYE ×3 (09:10→20:41)
[2025-06-07] MEDS: CYCLOGYL 1% EYE DROPS RIGHT EYE ×2 (09:11→20:41)
[2025-06-07] MEDS: PRED FORTE 1% EYE DROPS RIGHT EYE ×4 (09:11→20:41)
[2025-06-07] MEDS: NON-FORMULARY ITEM RIGHT EYE ×3 (09:11→20:41)
[2025-06-07] MEDS: NOVOLOG FLEXPEN-MODERATE RESISTANCE 1 UNITS SC ×2 (09:20→17:46)
[2025-06-07] MEDS: ELIQUIS 2.5 MG PO ×2 (09:21→20:42)
[2025-06-07] MEDS: LASIX 40 MG PO (09:21)
[2025-06-07] MEDS: COREG 3.125 MG PO ×2 (09:21→20:42)
[2025-06-07] MEDS: KCL 20 MEQ PO (09:21)
[2025-06-07] MEDS: DESENEX/MITRAZOL/ZEASORB 1 APPLIC TOPICAL ×2 (09:24→20:43)
[2025-06-07 11:14] VITALS: BP 120/79
[2025-06-07 12:07] LABS: Glucose - Point of Care 276 mg/dl (70-99)
--- NOTE | 2025-06-07 12:12 | W.PN.CARDCBS ---
Today's Communication / Plan
-
He is for hospice
Will sign off
Impression / Plan
-
PCP: Bobbi Salvador MD
CDY: Ivan Amador MD
Impression:
Presented 05/25/2025 shortness of breath, edema, intermittent confusion
Shock - presumed septic shock
Acute respiratory failure on BiPAP with CO2 retention
Acute on chronic heart failure with reduced ejection fraction, Pro BNP 11,400
Severe pulm hypertension on right heart catheterization 06/03/2025
Severe aortic stenosis
CARLEEN, creatinine 2.0 on 06/06/2025
hyperkalemia on presentation, ramipril stopped
Vitreal hemorrhage R eye requiring one week hold of Eliquis and reduction in dose to 2.5 mg bid, with low vision bilaterally
Paroxysmal Atrial fibrillation
prior PVI 2019
post redo PVI and Watchman device implant 31mm 04/19/25
CAD/CABG 2002
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
Ambulatory dysfunction with frequent falls
NIDDM
Hyperlipidemia
h/o bleeding hemorrhoids
DNR
Echo 05/26/2025: EF 40%. Septal straightening and global hypokinesis with regional variability. Moderately dilated and hypokinetic RV, dilated RA. Dilated left atrium with moderate MR. Severe aortic stenosis with peak/mean gradient 41/25 mmHg and
DEVEN 0.9 cm�. Moderate TR with severe pulmonary hypertension 73 mmHg
MICHAEL 04/19/2025: Successful deployment of Watchman Flex Pro 31 mm device in left atrial appendage. Mild LOLLY device flow, mild to moderate MR, mild AI
Echo 10/21/2023: EF 35 to 40%, mild to moderate MR, mild , 14/9 mmHg, mild TR
Cardiac catheterization 12/07/2019: Patent ALDRICH to LAD, SVG to diagonal, and SVG to OM 2. Severe the [place] two-vessel CAD, moderate to severe LV dysfunction, RA 16, PA 58/24, PCWP 22
Right heart catheterization 06/03/2025: Pulmonary pressures wedge pressure 19, PA 79/33
Plan:
Discussed with granddaughter at bedside
They are moving towards hospice
Will sign off, call with questions
History of Present Illness 05/26/2025:
Sathish is an 84 year old male with PMH of paroxysmal afib s/p PVI 2019 and most recently redo PVI with Watchman 04/19/2025, CAD s/p CABG, chronic HFmrEF, CM, DM, HTN, HLD falls, hemorrhoidal bleeding, iron deficiency anemia who presented to [facility] with
shortness of breath, increased LE edema, and intermittent confusion. Ten days ago he had acute vision loss in his right eye and was seen at [facility] eye where he was diagnosed with spontaneous retinal hemorrhage secondary to Eliquis. Being worked up
for glaucoma. Eliquis was held for one week (pt kept on ASA 81 mg daily) and Eliquis resumed after one week hold at reduced dose of 2.5 mg twice a day. In addition, he was started on acetazolamide and Lasix and spironolactone were discontinued.
He gained 5 pounds with increased lower extremity edema. He called the cardiology office earlier this week and Lasix was resumed at 40 mg 3 x week with no improvement in symptoms and he therefore presented to [facility] ED on 05/25/2025. Also reports
intermittent confusion. Denies unilateral weakness, numbness/tingling, slurred speech, dysphagia, facial droop.
Progress Note - Precinct Commanding Officer
Subjective
Date of Service: June 07, 2025
Complains of shortness of breath
Objective
Labs:
06/05/25 03:56
06/05/25 03:56
Labs
Hgb 11.1 g/dL (13.0-18.0) L 06/05/25 03:56
Hct 34.8 % (39.0-52.0) L 06/05/25 03:56
Plt Count 217 10^3/uL (130-400) 06/05/25 03:56
PT 20.0 Sec (11.4-14.6) H 05/28/25 01:33
INR 1.68 05/28/25 01:33
Sodium 138 mmol/L (135-145) 06/05/25 03:56
Potassium 4.0 mmol/L (3.5-5.1) 06/05/25 03:56
BUN 71 mg/dl (9-20) H 06/05/25 03:56
Creatinine 2.0 mg/dL (0.7-1.3) H 06/05/25 03:56
Glucose 158 mg/dl (70-99) H 06/05/25 03:56
Vital Signs and I&O:
Vital Signs
Temp Pulse Resp BP Pulse Ox
97.6 F 83 16 120/79 94
06/07/25 11:14 06/07/25 11:14 06/07/25 11:14 06/07/25 11:14 06/07/25 11:14
Vital Signs
Temp Pulse Resp BP Pulse Ox
97.6 F 83 16 120/79 94
06/07/25 11:14 06/07/25 11:14 06/07/25 11:14 06/07/25 11:14 06/07/25 11:14
Intake & Output
06/05/25 06/06/25 06/07/25 06/08/25
06:59 06:59 06:59 06:59
Intake Total 60.2 / 60.2 240 / 240 480 / 480
Output Total 900 / 900 900 / 900 1725 / 1725
Balance -839.8 / -839.8 -660 / -660 -1245 / -1245
Physical Exam
Physical Exam
General: Well developed, well nourished in NAD.
Neck: Supple, no JVD, HJR, carotids +2 B/L, no bruits bilaterally.
Heart: Non displaced PMI, RRR, no murmurs, No S3, S4, no rubs.
Lungs: Scattered rhonchi
Extremities: No clubbing, cyanosis or edema bilaterally.
Neuro: Grossly nonfocal, awake, alert and oriented x3.
[2025-06-07] MEDS: NOVOLOG FLEXPEN-MODERATE RESISTANCE 5 UNITS SC (12:33)
--- NOTE | 2025-06-07 13:15 | W.PN.HOSP.TC ---
Today's Communication/Plan
-
comfort measures
Assessment / Plan
Assessment / Plan
Physical exam:
GEN: No distress, awake, chronically ill looking
HEENT: supple, anicteric, mmm
LUNGS: decreased BS with basal rales
CV: Reg, S1/S2, 1/6 syst LSB, no murmur
ABD: soft, BS+, NT/ND
EXT: edema, peripheral cyanosis noted with cold fingers/toes.
NEURO: lethargic
Psych: calm
#Cardiogenic with absence of source of infection or could be SIRS
Likely SIRS POA with organ dysfunction
Now with multiple organ failure
Persistent shock despite pressure support
Will benefit from comfort care / hospice care
f/w cardiology recommendations
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
More urine output
Creatinine is around 2
# Acute HFrEF exacerbation
- EF of 35 to 40%
s/p IV Lasix but unable to tolerate due to low BP, worsening renal function
-- echo with new Severe
- Holding ramipril & BP, other GDMT due to hypotension, renal failure
- Cardiology consulted, appreciate help
#Elevated troponin
� nonischemic myocardial injury secondary to shock
� No chest pain
#Severe
Not a candidate for TAVR per cardiology
#Right lower extremity edema / erythema, non tender
Blood and urine culture are NGTD
- Finished Empiric IV Zosyn for total of 5 days. Last day 06/01/25.
� MRSA swab - negative
� lower extremity Doppler - negative
- s/p IV Levophed gtt
#Acute hypercapnic and hypoxic respiratory failure
#Respiratory acidosis
Weaning down oxygen
#Leukocytosis, afebrile
# Hyponatremia
#Hypokalemia
#CAD status post CABG
#Paroxysmal atrial fibrillation with Watchman
- Continue Eliquis, patient now on reduced dose due to hemorrhage of right eye
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
- Continue acetazolamide, brimonidine
c/w eye drops
#Type 2 diabetes
- Hold metformin
- Insulin sliding scale
#Hyperlipidemia
- Continue statin
#History of bleeding hemorrhoid
#Code status changed to DNR
DVT prophylaxis�Eliquis
Cardiac diet
Dispo�now on comfort - plan for dispo to hospice center/home
Anticipated Discharge: 24 - 48 hours
Subjective/Interval History
-
Date of Service: June 07, 2025
No acute events
Objective Data
-
Vital Signs:
Vital Signs
Temp Pulse Resp BP Pulse Ox
97.6 F 83 16 120/79 94
06/07/25 11:14 06/07/25 11:14 06/07/25 11:14 06/07/25 11:14 06/07/25 11:14
I&O
06/06/25 06/07/25 06/08/25
06:59 06:59 06:59
Intake Total 240 / 240 480 / 480
Output Total 900 / 900 1725 / 1725
Balance -660 / -660 -1245 / -1245
Review of Systems
-
History Source: Patient
All other systems: Not reviewed unless documented
Data Reviewed
-
Diagnostic Radiology: Report Reviewed by me
Labs: Labs Reviewed by me
--- NOTE | 2025-06-07 13:39 | CM ---
Addendum entered by Liz Haro 06/07/25 15:06:
card room manager spoke with Thi Dalal [phone] at [facility] and she will be providing caregiver services in home for patient.
Original Note:
card room manager spoke with patient's spouse this morning and plan is for home on hospice, [facility] met with patient and spouse today and plan will be to review hospice agencies covers patient's area, [facility], [facility] and [facility]
were discussed and patient's spouse has selected [facility], transplant case manager reached out to [place] and spoke with Bill [phone], and faxed over a referral, patient will need hospital bed, transport chair, w/c and home
oxygen at discharge, Per Bill he can have a nurse at patient's home tomorrow around 1pm and have equipment delivered tomorrow morning, per spouse she will also set up private duty services in home with [facility] caregiver services.
Plan; Discharge to home tomorrow with [facility], patient will need ambulance transport to home.
[2025-06-07 15:04] VITALS: BP 132/76
[2025-06-07 16:58] LABS: Glucose - Point of Care 192 mg/dl (70-99)
[2025-06-07] MEDS: MELATONIN 5 MG PO (21:52)
[2025-06-07 23:15] VITALS: BP 131/79
[2025-06-08] MEDS: MORPHINE SULFATE 2 MG IV ×2 (00:10→15:28)
[2025-06-08 05:42] VITALS: BMI 25.5
[2025-06-08 07:15] VITALS: BP 120/77
[2025-06-08 07:20] LABS: Glucose - Point of Care 134 mg/dl (70-99)
[2025-06-08] MEDS: NOVOLOG FLEXPEN-MODERATE RESISTANCE SC ×3 (08:41→12:23)
[2025-06-08] MEDS: NON-FORMULARY ITEM RIGHT EYE ×3 (08:52→21:26)
[2025-06-08] MEDS: PRED FORTE 1% EYE DROPS RIGHT EYE ×4 (08:52→22:42)
[2025-06-08] MEDS: ALPHAGAN 0.2% EYE DROPS RIGHT EYE ×2 (08:52→15:02)
[2025-06-08] MEDS: CYCLOGYL 1% EYE DROPS RIGHT EYE ×2 (08:52→20:51)
[2025-06-08] MEDS: DESENEX/MITRAZOL/ZEASORB 1 APPLIC TOPICAL ×2 (08:52→20:51)
[2025-06-08] MEDS: LASIX 40 MG PO (08:53)
[2025-06-08] MEDS: COREG 3.125 MG PO ×2 (08:53→20:45)
[2025-06-08] MEDS: ELIQUIS 2.5 MG PO ×2 (08:53→20:50)
[2025-06-08] MEDS: KCL PO (08:58)
[2025-06-08 11:47] LABS: Glucose - Point of Care 247 mg/dl (70-99)
--- NOTE | 2025-06-08 13:12 | W.PN.HOSP.TC ---
Today's Communication/Plan
-
comfort measures
Assessment / Plan
Assessment / Plan
Physical exam:
GEN: No distress, awake, chronically ill looking
HEENT: supple, anicteric, mmm
LUNGS: decreased BS with basal rales
CV: Reg, S1/S2, 1/6 syst LSB, no murmur
ABD: soft, BS+, NT/ND
EXT: edema, peripheral cyanosis noted with cold fingers/toes.
NEURO: lethargic
Psych: calm
#Cardiogenic with absence of source of infection or could be SIRS
Likely SIRS POA with organ dysfunction
Now with multiple organ failure
Persistent shock despite pressure support
Will benefit from comfort care / hospice care
f/w cardiology recommendations
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
More urine output
Creatinine is around 2
# Acute HFrEF exacerbation
- EF of 35 to 40%
s/p IV Lasix but unable to tolerate due to low BP, worsening renal function
-- echo with new Severe
- Holding ramipril & BP, other GDMT due to hypotension, renal failure
- Cardiology consulted, appreciate help
#Elevated troponin
� nonischemic myocardial injury secondary to shock
� No chest pain
#Severe
Not a candidate for TAVR per cardiology
#Right lower extremity edema / erythema, non tender
Blood and urine culture are NGTD
- Finished Empiric IV Zosyn for total of 5 days. Last day 06/01/25.
� MRSA swab - negative
� lower extremity Doppler - negative
- s/p IV Levophed gtt
#Acute hypercapnic and hypoxic respiratory failure
#Respiratory acidosis
Weaning down oxygen
#Leukocytosis, afebrile
# Hyponatremia
#Hypokalemia
#CAD status post CABG
#Paroxysmal atrial fibrillation with Watchman
- Continue Eliquis, patient now on reduced dose due to hemorrhage of right eye
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
- Continue acetazolamide, brimonidine
c/w eye drops
#Type 2 diabetes
- Hold metformin
- Insulin sliding scale
#Hyperlipidemia
- Continue statin
#History of bleeding hemorrhoid
#Code status changed to DNR
DVT prophylaxis�Eliquis
Cardiac diet
Dispo�now on comfort - plan for dispo to hospice center/home yesi
Anticipated Discharge: Within 24 hours
Subjective/Interval History
-
Date of Service: June 08, 2025
No acute events, resting comfortably
Objective Data
-
Vital Signs:
Vital Signs
Temp Pulse Resp BP Pulse Ox
98.4 F 83 18 120/77 98
06/08/25 07:15 06/08/25 07:15 06/08/25 07:15 06/08/25 07:15 06/08/25 07:15
I&O
06/07/25 06/08/25 06/09/25
06:59 06:59 06:59
Intake Total 480 / 480 360 / 360
Output Total 1725 / 1725 900 / 900
Balance -1245 / -1245 -540 / -540
Review of Systems
-
History Source: Patient
All other systems: Not reviewed unless documented
Data Reviewed
-
Diagnostic Radiology: Report Reviewed by me
Labs: Labs Reviewed by me
[2025-06-08 14:05] LABS: Glucose - Point of Care 173 mg/dl (70-99)
[2025-06-08] MEDS: NOVOLOG FLEXPEN-MODERATE RESISTANCE 1 UNITS SC (14:08)
--- NOTE | 2025-06-08 14:33 | CM ---
Addendum entered by Liz Haro 06/08/25 14:40:
OO[facility] DNR signed and on chart
Original Note:
Patient has been set up for discharge tomorrow to home with [facility], and [facility] private aides have also been set up. OOH DNR has been completed and placed on chart, ambulance transport has been set up for 11:30am, IMM has been completed and
signed and placed on chart, spouse is aware of plan and all equipment has been delivered today, hospital bed, table, w/c, and oxygen.
Plan; Home with spouse and [facility] and [facility] Private caregivers.
[facility] Bill [phone], , ambulance transport for 11:30am.
[2025-06-08 15:10] VITALS: BP 99/76
[2025-06-08 16:55] LABS: Glucose - Point of Care 285 mg/dl (70-99)
[2025-06-08] MEDS: NOVOLOG FLEXPEN-MODERATE RESISTANCE 5 UNITS SC (18:29)
[2025-06-08 20:59] LABS: Glucose - Point of Care 173 mg/dl (70-99)
[2025-06-08] MEDS: MELATONIN 5 MG PO (21:26)
[2025-06-08 23:05] VITALS: BP 113/67
[2025-06-09] MEDS: ALPHAGAN 0.2% EYE DROPS RIGHT EYE ×2 (00:07→08:00)
[2025-06-09] MEDS: MORPHINE SULFATE 2 MG IV (00:17)
[2025-06-09 07:00] VITALS: BP 124/74
[2025-06-09] MEDS: LASIX 40 MG PO (07:54)
[2025-06-09] MEDS: ELIQUIS 2.5 MG PO (07:55)
[2025-06-09] MEDS: CYCLOGYL 1% EYE DROPS RIGHT EYE (07:55)
[2025-06-09] MEDS: NON-FORMULARY ITEM RIGHT EYE (07:55)
[2025-06-09] MEDS: PRED FORTE 1% EYE DROPS RIGHT EYE ×2 (07:55→10:12)
[2025-06-09] MEDS: KCL PO (07:55)
[2025-06-09] MEDS: DESENEX/MITRAZOL/ZEASORB 1 APPLIC TOPICAL (07:55)
[2025-06-09] MEDS: COREG 3.125 MG PO (07:55)
[2025-06-09 07:59] LABS: Glucose - Point of Care 168 mg/dl (70-99)
[2025-06-09] MEDS: NOVOLOG FLEXPEN-MODERATE RESISTANCE 1 UNITS SC (07:59)
[2025-06-09 11:21] VITALS: BP 122/60
--- NOTE | 2025-06-09 11:30 | W.PN.HOSP.TC ---
Today's Communication/Plan
-
comfort measures
Assessment / Plan
Assessment / Plan
Physical exam:
GEN: No distress, awake, chronically ill looking
HEENT: supple, anicteric, mmm
LUNGS: decreased BS with basal rales
CV: Reg, S1/S2, 1/6 syst LSB, no murmur
ABD: soft, BS+, NT/ND
EXT: edema, peripheral cyanosis noted with cold fingers/toes.
NEURO: lethargic
Psych: calm
#Cardiogenic with absence of source of infection or could be SIRS
Likely SIRS POA with organ dysfunction
Now with multiple organ failure
Persistent shock despite pressure support
Will benefit from comfort care / hospice care
f/w cardiology recommendations
#CRALEEN on progressive CKD stage around IIIB
More urine output
Creatinine is around 2
# Acute HFrEF exacerbation
- EF of 35 to 40%
s/p IV Lasix but unable to tolerate due to low BP, worsening renal function
-- echo with new Severe
- Holding ramipril & BP, other GDMT due to hypotension, renal failure
- Cardiology consulted, appreciate help
#Elevated troponin
� nonischemic myocardial injury secondary to shock
� No chest pain
#Severe
Not a candidate for TAVR per cardiology
#Right lower extremity edema / erythema, non tender
Blood and urine culture are NGTD
- Finished Empiric IV Zosyn for total of 5 days. Last day 06/01/25.
� MRSA swab - negative
� lower extremity Doppler - negative
- s/p IV Levophed gtt
#Acute hypercapnic and hypoxic respiratory failure
#Respiratory acidosis
Weaning down oxygen
#Leukocytosis, afebrile
# Hyponatremia
#Hypokalemia
#CAD status post CABG
#Paroxysmal atrial fibrillation with Watchman
- Continue Eliquis, patient now on reduced dose due to hemorrhage of right eye
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
- Continue acetazolamide, brimonidine
c/w eye drops
#Type 2 diabetes
- Hold metformin
- Insulin sliding scale
#Hyperlipidemia
- Continue statin
#History of bleeding hemorrhoid
#Code status changed to DNR
DVT prophylaxis�Eliquis
Cardiac diet
More than 30 minutes spent in discharge including
Final examination of the patient
Summarizing hospital stay
Instructions for continuing care to all relevant caregivers
Preparation of discharge records, prescriptions, and referral forms
Total time spent (in minutes): 39
Anticipated Discharge: Today
Subjective/Interval History
-
Date of Service: June 09, 2025
no acute events
Objective Data
-
Vital Signs:
Vital Signs
Temp Pulse Resp BP Pulse Ox
98.8 F 78 16 122/60 97
06/09/25 11:21 06/09/25 11:21 06/09/25 11:21 06/09/25 11:21 06/09/25 11:21
I&O
06/08/25 06/09/25 06/10/25
06:59 06:59 06:59
Intake Total 360 / 360 840 / 840 360 / 360
Output Total 900 / 900 825 / 825 225 / 225
Balance -540 / -540 15 15 135 / 135
Review of Systems
-
History Source: Patient
All other systems: Not reviewed unless documented
--- NOTE | 2025-06-09 11:56 | W.DS.TRANS ---
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
-
Discharge Instructions:
Sleep Apnea Risk Intermediate
Discharge Diagnosis/Procedures shock, cardiogenic and possible septic
Diet As tolerated
Instructions:
Stand-Alone Forms:
Changes to Home Medications: Yes
Discharge Medications:
DC Medications w/original date entered in [employer]
apixaban 5 mg tablet (Eliquis) 2.5 mg PO BID Blood clot prevention/tx 11/30/19
melatonin 5 mg tablet 5 mg PO HS sleep 08/22/20
brimonidine 0.2 % eye drops 1 drp RIGHT EYE Q8H Eye Condition 05/25/25
cyclopentolate 1 % eye drops 1 drp RIGHT EYE BID Eye Condition 05/25/25
dorzolamide-timolol (PF) 2 %-0.5 % eye drops in a dropperette (Cosopt (PF)) 1 drp RIGHT EYE BID Eye Condition 05/25/25
loratadine 10 mg tablet (Claritin) 10 mg PO DAILY@1200 Allergies 05/25/25
netarsudil 0.02 %-latanoprost 0.005 % eye drops (Rocklatan) 1 drp RIGHT EYE HS Eye Condition 05/25/25
prednisolone acetate 1 % eye drops,suspension 1 drp RIGHT EYE QID Eye Condition 05/25/25
polyethylene glycol 3350 17 gram oral powder packet (Miralax) 17 g PO DAILY Constipation 05/30/25
carvedilol 3.125 mg tablet 3.125 mg PO BID #0 tabs 06/09/25
furosemide 40 mg tablet 40 mg PO DAILY #0 tabs 06/09/25
miconazole nitrate 2 % topical powder (Miconazorb AF) 1 applic topical BID #0 grams 06/09/25
midodrine 5 mg tablet 10 mg (2 x 5 mg) PO Q8 #0 tabs 06/09/25
potassium chloride 20 mEq tablet,extended release(part/cryst) 20 meq PO DAILY #0 tabs 06/09/25
Home Medication Changes
furosemide 40 mg tablet 40 mg PO DAILY #0 tabs 06/09/25
miconazole nitrate 2 % topical powder (Miconazorb AF) 1 applic topical BID #0 grams 06/09/25
midodrine 5 mg tablet 10 mg (2 x 5 mg) PO Q8 #0 tabs 06/09/25
potassium chloride 20 mEq tablet,extended release(part/cryst) 20 meq PO DAILY #0 tabs 06/09/25
Pending Results: No
== END 2025-06-09 12:07 | disposition hospice, inpatient (51) | DRG 286 ==
LOC: 2 NORTH 21:05
PROVIDERS: Emergency Medicine; Internal Medicine; Internal Medicine Interventional Cardiology; Nurse Practitioner Family; Nurse Practitioner Primary Care; Physician Assistant; Physician Assistant Medical; Radiology Neuroradiology; Registered Nurse; ADMITTING PHYSICIAN Hospitalist; ATTENDING PHYSICIAN Internal Medicine; EMERGENCY PHYSICIAN Student in an Organized Health Care Education/Training Program; FAMILY PHYSICIAN Internal Medicine; OTHER PHYSICIAN Internal Medicine; OTHER PHYSICIAN Internal Medicine Cardiovascular Disease
PROC: 5A09357 Assistance with Respiratory Ventilation, Less than 24 Consecutive Hours, Continuous Positive Airway Pressure (ICD-10-PCS; 2025-05-28)
PROC: 02HV33Z Insertion of Infusion Device into Superior Vena Cava, Percutaneous Approach (ICD-10-PCS; 2025-05-28)
PROC: 4A023N6 Measurement of Cardiac Sampling and Pressure, Right Heart, Percutaneous Approach (ICD-10-PCS; 2025-06-03)
DX: I13.0 Hypertensive heart and chronic kidney disease with heart failure and stage 1 through stage 4 chronic kidney disease, or unspecified chronic kidney disease (principal); G93.41 Metabolic encephalopathy; I50.23 Acute on chronic systolic (congestive) heart failure; J96.02 Acute respiratory failure with hypercapnia; N17.0 Acute kidney failure with tubular necrosis; R57.0 Cardiogenic shock; R65.11 Systemic inflammatory response syndrome (SIRS) of non-infectious origin with acute organ dysfunction; J96.01 Acute respiratory failure with hypoxia; E87.1 Hypo-osmolality and hyponatremia; N39.0 Urinary tract infection, site not specified; D68.32 Hemorrhagic disorder due to extrinsic circulating anticoagulants; I47.19 Other supraventricular tachycardia; Z51.5 Encounter for palliative care; I42.8 Other cardiomyopathies; I5A Non-ischemic myocardial injury (non-traumatic); I25.10 Atherosclerotic heart disease of native coronary artery without angina pectoris; I48.0 Paroxysmal atrial fibrillation; E11.40 Type 2 diabetes mellitus with diabetic neuropathy, unspecified; E11.36 Type 2 diabetes mellitus with diabetic cataract; E11.65 Type 2 diabetes mellitus with hyperglycemia; H40.9 Unspecified glaucoma; E78.00 Pure hypercholesterolemia, unspecified; E87.5 Hyperkalemia; T46.4X5A Adverse effect of angiotensin-converting-enzyme inhibitors, initial encounter; I44.0 Atrioventricular block, first degree; R29.6 Repeated falls; I08.0 Rheumatic disorders of both mitral and aortic valves; J98.4 Other disorders of lung; K21.9 Gastro-esophageal reflux disease without esophagitis; E83.41 Hypermagnesemia; D50.9 Iron deficiency anemia, unspecified; E87.6 Hypokalemia; E11.22 Type 2 diabetes mellitus with diabetic chronic kidney disease; T45.515A Adverse effect of anticoagulants, initial encounter; I49.3 Ventricular premature depolarization; N18.32 Chronic kidney disease, stage 3b; G47.00 Insomnia, unspecified; I27.20 Pulmonary hypertension, unspecified; N40.0 Benign prostatic hyperplasia without lower urinary tract symptoms; Z66 Do not resuscitate; Z95.1 Presence of aortocoronary bypass graft; Z79.01 Long term (current) use of anticoagulants; Z79.52 Long term (current) use of systemic steroids; Z79.84 Long term (current) use of oral hypoglycemic drugs; Z79.82 Long term (current) use of aspirin
CPT/HCPCS: 71045; 71046; 80048; 80053; 81003; 81015; 82330; 82805; 82962; 83036; 83605; 83735; 83880; 84132; 84302; 84443; 84484; 85025; 85027; 85610; 87040; 87086; 87641; 92526; 92610; 93005; 93306; 93451; 93970; 94660; 96374; 97163; 97167; 97530; 97535; 99285; C1769; C1894